=== PATIENT | female | born 1950 | race Two or more races ===

== ENCOUNTER 2017-03-31 10:11 | Emergency (ER) | payer OTHER ==
[~2017-03-31] VITALS: Ht 162.6 cm; Wt 86.2 kg
[~2017-03-31 10:11] MED LIST: ACETAMINOPHEN-1 EAC1 ORAL; ARIMIDEX1 MG ORAL; CIPROFLOXACIN500 M2 ORAL; DIURIL25 MG ORAL; GLUCOPHAGE XR500 MG ORAL; HYDROCHLOROTHIA25 MG ORAL; LISINOPRIL20 MG ORAL; NORCO 5-325 TA1 EACH PO; OMEPRAZOLE20 M3 ORAL; SIMVASTATIN20 MG ORAL; ZOFRAN ODT4 MG ORAL
[2017-03-31] MEDS ORDERED: Morphine Sulfate 2mg/ml Inj IVP ONE (10:45)
[2017-03-31 11:00] LABS: APPEARANCE,URINE CLOUDY; KETONES,URINE NEGATIVE (NEGATIVE); LEUKOCYTE ESTERASE ,URINE 2+ (NEGATIVE); MEAN CORPUSCULAR HGB CONC 31.9 G/DL (32.0-36.0); MEAN CORPUSCULAR VOLUME 97 FL (80-99); MEAN PLATELET VOLUME 8.5 FL (6.5-10.1); NITRITE,URINE NEGATIVE (NEGATIVE); PH,URINE 6 (4.5-8.0); PLATELET COUNT 93 K/UL (150-450); PROTEIN,URINE NEGATIVE (NEGATIVE); RED BLOOD COUNT 3.59 M/UL (4.20-5.40); RED CELL DISTRIBUTION WIDTH 11.7 % (11.6-14.8); UROBILINOGEN,URINE 4 MG/DL (0.0-1.0); WHITE BLOOD COUNT 8.6 K/UL (4.8-10.8)
[2017-03-31 11:12] LABS: ALBUMIN/GLOBULIN RATIO 1.2 (1.0-2.7); CALCIUM 8.9 mg/dL (8.6-10.2); CREATININE 1.8 mg/dL (0.5-0.9); GLOMERULAR FILTRATION RATE 28.3 mL/min (>60); POTASSIUM 4.6 mEQ/L (3.4-4.9); TOTAL PROTEIN 7.1 g/dL (6.6-8.7)
[2017-03-31 11:22] LABS: BACTERIA,URINE FEW /HPF; RBC,URINE 0-2 /HPF (0 - 2); SQUAMOUS EPITHELIAL CELL,UR OCCASIONAL /LPF (NONE/OCC); WBC,URINE 15-20 /HPF (0 - 2)
[2017-03-31 11:47] LABS: BAND NEUTROPHILS % (MANUAL) 1 % (0-8); BASOPHILS % (MANUAL) 0 % (0-2); EOSINOPHILS % (MANUAL) 0 % (0-3); LYMPHOCYTES % (MANUAL) 23 % (20-45); NEUTROPHILS % (MANUAL) 73 % (45-75); PLATELET ESTIMATE DECREASED; PLATELET MORPHOLOGY NORMAL; TOTAL CELLS COUNTED 100
[2017-03-31 11:48] LABS: HYPOCHROMASIA 1+
--- NOTE | 2017-03-31 12:04 | Diagnostic Imaging Report ---
Indication: Abdominal pain Technique: Spiral acquisitions obtained through the abdomen and pelvis. No oral contrast utilized, per emergency room physician request No IV contrast utilized, due to renal insufficiency. Multiplanar reconstructions were generated. Total dose length product 926 mGycm. CTDIvol(s) 18 mGy. Dose reduction achieved using automated exposure control Comparison: 02/26/2015 contrast study Findings: The appendix is not definitely identified, but there are no findings to suggest acute appendicitis. There is colonic diverticulosis. No evidence of diverticulitis. No small bowel distention. No free or loculated intraperitoneal air or fluid. The distal esophagus, stomach, duodenum are unremarkable. Lack of IV contrast limits assessment of the solid organs. The liver demonstrates surface nodularity, which is subtle but slightly more striking than on the previous study. No focal abnormality. The gallbladder, bile ducts are unremarkable. The pancreas is somewhat fatty replaced. There are prominent but not frankly enlarged peripancreatic nodes. The spleen is enlarged, measuring 15 cm long axis dimension. This is also evident previously. There is again demonstrated a 2 cm mass in the left adrenal, which appears unchanged in size. There is also diffuse bulkiness to the left adrenal. The right adrenal is unremarkable. Calcifications in the left kidney are probably arterial. The kidneys are otherwise unremarkable. No renal or ureteral calculi, hydronephrosis, or hydroureter. The bladder is unremarkable. The uterus and adnexal structures are unremarkable. No pelvic or retroperitoneal mass or adenopathy demonstrated. There are bilateral iliac artery stents There is a right breast prosthesis again demonstrated. Included lung bases demonstrate a mass at the right lung base which is spiculated, measures 12 mm diameter, not evident on the previous exam although could have been excluded from the previous imaging volume it is not evident on a 2012 exam, which definitely included the same part of the lung. The bones demonstrate degenerative spondylosis changes. Surgical clips are seen in the right posterior lateral chest wall. There is evidence of bilateral L5 spondylolysis and grade 1 L5 on S1 spondylolisthesis as well as degenerative proliferative change. This is also evident on earlier exams. Impression: No definite acute abnormality Spiculated 12 mm right lung base mass, not evident on earlier studies. Appearance is somewhat concerning for neoplasm. Consider further evaluation with dedicated chest CT Colonic diverticulosis. No evidence of diverticulitis Equivocal hepatic surface nodularity, may indicate cirrhotic changes. Correlate with clinical and laboratory findings Splenomegaly, also previously described 2 cm left adrenal mass, unchanged from prior studies. Stable left adrenal hypertrophy Other findings as noted, including degenerative spondylosis, bilateral L5 spondylolysis with associated spondylolisthesis, right breast prosthesis, bilateral iliac stents The CT scanner at [facility] is accredited by the [employer] and the scans are performed using protocols designed to limit radiation exposure to as low as reasonably achievable to attain images of sufficient resolution adequate for diagnostic evaluation.
[2017-03-31 12:20] VITALS: BP 152/70
[2017-03-31] MEDS ORDERED: DIPHENHYDRAMINE25 M1 ORAL (13:00)
[2017-03-31 13:31] VITALS: BP 168/71
[2017-03-31 13:32] VITALS: BP 152/70
--- NOTE | 2017-03-31 14:01 | Emergency Room Report ---
History of Present Illness General Chief Complaint: Back Pain-No Injury Source: Medical Record Present Illness HPI 66-year-old female presents ED complaining of abdominal pain and dysuria x2 days. Notes pain in suprapubic region, 8/10, sharp, radiating to the back. Notes burning urination. Denies fevers or chills. Denies nausea or vomiting. Denies chest pain shortness of breath. No other aggravating or relieving factors. Denies any other associated symptoms Allergies: Coded Allergies: PENICILLINS (Verified Allergy, Unknown, 02/08/11) Uncoded Allergies: TAPE (Allergy, Unknown, 03/31/17) Patient History Past Medical History: DM, HTN, GERD Past Surgical History: none Social History: Denies: smoking, alcohol use, drug use Now: No Immunizations: UTD Reviewed Nursing Documentation: PMH: Agreed, PSxH: Agreed Nursing Documentation-PMH Past Medical History: No History, Except For Hx Cardiac Problems: No - mastectomy on rt 2013 Hx Hypertension: Yes Hx Diabetes: Yes - pre Hx Cancer: Yes Hx Gastrointestinal Problems: Yes - GERD Review of Systems All Other Systems: negative except mentioned in HPI Physical Exam Vital Signs Date Time Temp Pulse Resp B/P (MAP) Pulse Ox O2 Delivery O2 Flow Rate FiO2 03/31/17 10:19 97.7 75 16 161/72 100 Room Air Sp02 EP Interpretation: reviewed, normal General Appearance: no apparent distress, alert, GCS 15, non-toxic Head: normocephalic, atraumatic Eyes: bilateral eye normal inspection, bilateral eye PERRL ENT: hearing grossly normal, normal pharynx, no angioedema, normal voice Neck: full range of motion, supple/symm/no masses Respiratory: chest non-tender, lungs clear, normal breath sounds, speaking full sentences Cardiovascular #1: regular rate, rhythm, no edema Cardiovascular #2: 2+ carotid (R), 2+ carotid (L), 2+ radial (R), 2+ radial (L) , 2+ dorsalis pedis (R), 2+ dorsalis pedis (L) Gastrointestinal: normal bowel sounds, soft, non-distended, no guarding, no rebound, tenderness - suprapubic Rectal: deferred Genitourinary: normal inspection, no CVA tenderness Musculoskeletal: back normal, gait/station normal, normal range of motion, non- tender Neurologic: alert, oriented x3, responsive, motor strength/tone normal, sensory intact, speech normal Psychiatric: judgement/insight normal, memory normal, mood/affect normal, no suicidal/homicidal ideation Reflexes: 3+ bicep (R), 3+ bicep (L), 3+ tricep (R), 3+ tricep (L), 3+ knee (R) , 3+ knee (L) Skin: normal color, no rash, warm/dry, well hydrated Lymphatic: no adenopathy Medical Decision Making Diagnostic Impression: Primary Impression: UTI (urinary tract infection) Qualified Codes: N39.0 - Urinary tract infection, site not specified Additional Impression: ARF (acute renal failure) Qualified Codes: N17.9 - Acute kidney failure, unspecified ER Course Hospital Course 66-year-old female presents to ED with dysuria and abd pain Differential diagnoses include: BPH, cystitis, pyelonephritis, kidney stone Clinical course Patient placed on 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 After initial history and physical I ordered labs, IV fluids, UA, pain medication and CT scan Labs - no leukocytosis, Hb/Hct stable, BUN/Cr elevated, UA + bacteria CT abdomen and pelvis - 12 mm right lung base mass, splenomegaly, no other acute process IV fluids given, antibiotics because of insurance patient will be transferred I feel this is a highly complex case requiring extensive working including EKG/ Rhythm strip, Xray/CT/US, Blood/urine lab work, repeat exams while in ED, and administration of strong opiates/narcotics for pain control, admission to hospital or close patient follow up. Diagnosis - UTI, ARF Patient transferred in serious condition Labs Test 03/31/17 10:41 White Blood Count 8.6 K/UL (4.8-10.8) Red Blood Count 3.59 M/UL (4.20-5.40) Hemoglobin 11.1 G/DL (12.0-16.0) Hematocrit 34.8 % (37.0-47.0) Mean Corpuscular Volume 97 FL (80-99) Mean Corpuscular Hemoglobin 31.0 PG (27.0-31.0) Mean Corpuscular Hemoglobin Concent 31.9 G/DL (32.0-36.0) Red Cell Distribution Width 11.7 % (11.6-14.8) Platelet Count 93 K/UL (150-450) Mean Platelet Volume 8.5 FL (6.5-10.1) Neutrophils (%) (Auto) % (45.0-75.0) Lymphocytes (%) (Auto) % (20.0-45.0) Monocytes (%) (Auto) % (1.0-10.0) Eosinophils (%) (Auto) % (0.0-3.0) Basophils (%) (Auto) % (0.0-2.0) Differential Total Cells Counted 100 Neutrophils % (Manual) 73 % (45-75) Lymphocytes % (Manual) 23 % (20-45) Monocytes % (Manual) 3 % (1-10) Eosinophils % (Manual) 0 % (0-3) Basophils % (Manual) 0 % (0-2) Band Neutrophils 1 % (0-8) Platelet Estimate Decreased Platelet Morphology Normal Hypochromasia 1+ Urine Color Yellow Urine Appearance Cloudy Urine pH 6 (4.5-8.0) Urine Specific [place] 1.010 (1.005-1.035) Urine Protein Negative (NEGATIVE) Urine Glucose (UA) Negative (NEGATIVE) Urine Ketones Negative (NEGATIVE) Urine Occult Blood Negative (NEGATIVE) Urine Nitrite Negative (NEGATIVE) Urine Bilirubin Negative (NEGATIVE) Urine Urobilinogen 4 MG/DL (0.0-1.0) Urine Leukocyte Esterase 2+ (NEGATIVE) Urine RBC 0-2 /HPF (0 - 2) Urine WBC 15-20 /HPF (0 - 2) Urine Squamous Epithelial Cells Occasional /LPF Urine Bacteria Few /HPF (NONE) Sodium Level 138 mEQ/L (135-145) Potassium Level 4.6 mEQ/L (3.4-4.9) Chloride Level 99 mEQ/L (98-107) Carbon Dioxide Level 25 mEQ/L (20-30) Anion Gap 14 (5-15) Blood Urea Nitrogen 50 mg/dL (7-23) Creatinine 1.8 mg/dL (0.5-0.9) Estimat Glomerular Filtration Rate 28.3 mL/min (>60) Glucose Level 197 mg/dL (74-106) Calcium Level 8.9 mg/dL (8.6-10.2) Total Bilirubin 0.5 mg/dL (0.0-1.2) Aspartate Amino Transf (AST/SGOT) 31 U/L (5-40) Alanine Aminotransferase (ALT/SGPT) 24 U/L (3-33) Alkaline Phosphatase 64 U/L (35-104) Total Protein 7.1 g/dL (6.6-8.7) Albumin 3.9 g/dL (3.5-5.2) Globulin 3.2 g/dL Albumin/Globulin Ratio 1.2 (1.0-2.7) Lipase 39 U/L (< 60) CT/MRI/US Diagnostic Results CT/MRI/US Diagnostic Results : Imaging Test Ordered: CT A/P Impression no acute process. splenomegaly. 12mm spiculated right lung base mass Last Vital Signs Date Time Temp Pulse Resp B/P (MAP) Pulse Ox O2 Delivery O2 Flow Rate FiO2 03/31/17 13:32 97.5 61 16 152/70 100 Room Air Status: improved [facility] Condition: Serious Referrals: NELDA PAYNE (PCP) JUSTIN JORDAN M.D. Mar 31, 2017 14:01
== END 2017-03-31 14:00 | disposition short-term general hospital (02) ==
LOC: EMR 10:45
DX: N39.0 Urinary tract infection, site not specified (principal); N17.9 Acute kidney failure, unspecified; K21.9 Gastro-esophageal reflux disease without esophagitis; Z90.11 Acquired absence of right breast and nipple; Z85.9 Personal history of malignant neoplasm, unspecified; Z88.0 Allergy status to penicillin; I10 Essential (primary) hypertension; E11.9 Type 2 diabetes mellitus without complications; R16.1 Splenomegaly, not elsewhere classified; R91.8 Other nonspecific abnormal finding of lung field; K57.90 Diverticulosis of intestine, part unspecified, without perforation or abscess without bleeding; M47.9 Spondylosis, unspecified; Z95.5 Presence of coronary angioplasty implant and graft
CPT/HCPCS: 36415; 74176; 80053; 81003; 83690; 85007; 85025; 87086; 87181; 96361; 96365; 96375; 99285; J1956; J2270

== ENCOUNTER 2017-04-17 08:55 | Emergency (ER) | payer OTHER ==
[~2017-04-17] VITALS: Ht 154.9 cm; Wt 86.2 kg
[~2017-04-17 08:55] MED LIST changes: +DIPHENHYDRAMINE25 M1 ORAL
[2017-04-17] MEDS ORDERED: VOLTAREN25 MG PO (09:12)
--- NOTE | 2017-04-17 09:29 | Emergency Room Report ---
History of Present Illness General Chief Complaint: Chest Pain Source: Patient Present Illness HPI Patient presents with complaints of left-sided chest pain that started last night approximately 3:00 in the morning patient reports of the pain as a heaviness there is some radiation towards her back Denies any shortness of breath denies any pleurisy Denies any vomiting or diarrhea patient was recently in the hospital Transfer to [facility] with what she reports as UTI Patient has history of diabetes and mastectomy for right-sided breast cancer Denies any recent fever she had a mild cough Allergies: Coded Allergies: PENICILLINS (Verified Allergy, Unknown, 02/08/11) Uncoded Allergies: TAPE (Allergy, Unknown, 03/31/17) Patient History Past Medical History: see triage record Pertinent Family History: none Reviewed Nursing Documentation: PMH: Agreed, PSxH: Agreed Nursing Documentation-PMH Hx Cardiac Problems: No - mastectomy on rt 2013 Hx Hypertension: Yes Hx Diabetes: Yes - pre Hx Cancer: Yes Hx Gastrointestinal Problems: Yes - GERD Review of Systems All Other Systems: negative except mentioned in HPI Physical Exam Vital Signs Date Time Temp Pulse Resp B/P (MAP) Pulse Ox O2 Delivery O2 Flow Rate FiO2 04/17/17 09:03 98.2 74 22 170/61 100 Room Air Sp02 EP Interpretation: reviewed, normal General Appearance: well appearing, no apparent distress Head: normocephalic, atraumatic Eyes: bilateral eye PERRL, bilateral eye EOMI ENT: hearing grossly normal, normal pharynx, TMs + canals normal, uvula midline Neck: full range of motion, supple, no meningismus, no bony tend Respiratory: lungs clear, normal breath sounds, no rhonchi, no respiratory distress, no retraction, no accessory muscle use Cardiovascular #1: normal peripheral pulses, regular rate, rhythm, no edema, no gallop, no JVD, no murmur Gastrointestinal: normal bowel sounds, non tender, soft, no mass, no organomegaly, non-distended, no guarding, no hernia, no pulsatile mass, no rebound Genitourinary: no CVA tenderness Musculoskeletal: normal inspection Neurologic: oriented x3, responsive, meteorology teacher III-XII nml as tested, motor strength/ tone normal, sensory intact Psychiatric: mood/affect normal Skin: normal color, no rash, warm/dry, palpation normal Lymphatic: normal inspection, no adenopathy Medical Decision Making Diagnostic Impression: Primary Impression: ACS (acute coronary syndrome) ER Course Patient is a fairly complex patient with multiple differential to consideration including but not limited to cardiac cardiopulmonary and vascular emergencies Patient's blood work and imaging is appropriate Patient received aspirin and nitroglycerin At this time has not significantly better secondary to his factors and clinical history patient is a further inpatient 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 Results EP Interpretation: yes Rate: 66 Rhythm: NSR, no PVC's, no ectopy Chest X-Ray Diagnostic Results Chest X-Ray Diagnostic Results : Chest X-Ray Ordered: Yes # of Views/Limited/Complete: 1 View Indication: Chest Pain EP Interpretation: Yes Interpretation: no consolidation, no effusion, no pneumothorax Impression: No acute disease Electronically Signed by: Kishan Cortez DO Last Vital Signs Date Time Temp Pulse Resp B/P (MAP) Pulse Ox O2 Delivery O2 Flow Rate FiO2 04/17/17 09:03 98.2 74 22 170/61 100 Room Air Status: improved Disposition: [facility] Condition: Improved Referrals: [facility],REFERRING (PCP) KISHAN CORTEZ D.O. Apr 17, 2017 09:29
[2017-04-17 09:54] LABS: MEAN CORPUSCULAR HEMOGLOBIN 31.3 PG (27.0-31.0); MEAN CORPUSCULAR HGB CONC 32.6 G/DL (32.0-36.0); MEAN CORPUSCULAR VOLUME 96 FL (80-99); MEAN PLATELET VOLUME 9.1 FL (6.5-10.1); PLATELET COUNT 96 K/UL (150-450); RED BLOOD COUNT 3.89 M/UL (4.20-5.40); RED CELL DISTRIBUTION WIDTH 11.6 % (11.6-14.8); WHITE BLOOD COUNT 6.3 K/UL (4.8-10.8)
--- NOTE | 2017-04-17 10:00 | Diagnostic Imaging Report ---
Indication: Chest pain Comparison: 02/08/11 A single view chest radiograph was obtained. Findings: Cardiomediastinal appearance is within normal limits for age. Pulmonary vascularity is appropriate. The diaphragmatic contour is smooth and costophrenic angles are sharp. No pleural effusions are identified. There are surgical clips within the right axilla. The bones are osteopenic. Impression: No acute findings
[2017-04-17 10:10] LABS: ALBUMIN/GLOBULIN RATIO 1.2 (1.0-2.7); CALCIUM 9.8 mg/dL (8.6-10.2); CREATININE 1.3 mg/dL (0.5-0.9); GLOMERULAR FILTRATION RATE 41.3 mL/min (>60); TOTAL PROTEIN 7.3 g/dL (6.6-8.7)
[2017-04-17] MEDS ORDERED: Aspirin Baby 81mg ORAL ONE (10:15)
[2017-04-17] MEDS ORDERED: Nitroglycerin 2% oint pkt TOPIC ONE (10:15)
[2017-04-17 10:16] LABS: LYMPHOCYTES % (MANUAL) 23 % (20-45); NEUTROPHILS % (MANUAL) 74 % (45-75); TOTAL CELLS COUNTED 100
[2017-04-17 10:17] LABS: BAND NEUTROPHILS % (MANUAL) 0 % (0-8); BASOPHILS % (MANUAL) 0 % (0-2); EOSINOPHILS % (MANUAL) 0 % (0-3); PLATELET ESTIMATE DECREASED; PLATELET MORPHOLOGY NORMAL
[2017-04-17 10:22] LABS: CKMB 2.1 ng/mL (< 3.8)
[2017-04-17 10:29] LABS: TROPONIN I < 0.30 ng/mL (<=0.30)
[2017-04-17] MEDS ORDERED: Mylanta II UD 30ml ORAL ONE (10:45)
[2017-04-17] MEDS ORDERED: Dicyclomine HCl 10mg/5ml oral soln ORAL ONE (10:45)
[2017-04-17 10:54] VITALS: BP 177/62
[2017-04-17 12:27] VITALS: BP 130/47
[2017-04-17 12:36] VITALS: BP 130/60
--- NOTE | 2017-04-23 23:13 | Cardiology Report ---
APPROVED REPORT EKG Measurement Heart [id number] Sinus rhythm with short SC Otherwise normal ECG
== END 2017-04-17 12:36 | disposition short-term general hospital (02) ==
LOC: EMR 09:26
DX: I24.9 Acute ischemic heart disease, unspecified (principal); I10 Essential (primary) hypertension; K21.9 Gastro-esophageal reflux disease without esophagitis; Z88.0 Allergy status to penicillin; Z91.048 Other nonmedicinal substance allergy status
CPT/HCPCS: 36415; 71010; 80053; 82550; 82553; 83690; 83880; 84484; 85007; 85025; 93005; 99283

== ENCOUNTER 2017-08-18 18:19 | Emergency (ER) | payer OTHER ==
[~2017-08-18] VITALS: Ht 154.9 cm; Wt 81.6 kg
[~2017-08-18 18:19] MED LIST changes: +VOLTAREN25 MG PO
[2017-08-18] MEDS ORDERED: ALENDRONAT70 MG/75 M PO (18:58)
[2017-08-18] MEDS ORDERED: METFORMIN HCL500 M1 ORAL (18:58)
[2017-08-18 19:15] VITALS: BP 156/73
[2017-08-18] MEDS ORDERED: Norco 5mg/325mg tab ORAL ONE (19:15)
[2017-08-18 19:34] LABS: APPEARANCE,URINE CLEAR; BILIRUBIN, URINE NEGATIVE (NEGATIVE); GLUCOSE, URINE (UA) NEGATIVE (NEGATIVE); KETONES,URINE NEGATIVE (NEGATIVE); LEUKOCYTE ESTERASE ,URINE 1+ (NEGATIVE); NITRITE,URINE NEGATIVE (NEGATIVE); PH,URINE 5 (4.5-8.0); PROTEIN,URINE NEGATIVE (NEGATIVE); UROBILINOGEN,URINE 4 MG/DL (0.0-1.0)
[2017-08-18 19:43] LABS: COLOR,URINE YELLOW
[2017-08-18 20:15] VITALS: BP 152/75
[2017-08-18] MEDS ORDERED: IBUPROFEN600 MG ORAL (20:19)
[2017-08-18] MEDS ORDERED: CIPROFLOXACIN500 M2 ORAL (20:19)
[2017-08-18 20:40] VITALS: BP 152/75
--- NOTE | 2017-08-21 07:38 | Emergency Room Report ---
History of Present Illness General Chief Complaint: Pain Source: Patient Present Illness HPI Patient presents with complaints of right lower back pain with some radiation to the upper thigh and inguinal area Triage note reports right-sided flank abdominal pain However the patient points fairly specifically to the lower back Denies any fall or trauma Denies any chest pain or short of breath Denies any vomiting Denies any fevers denies any lower abdominal pain Patient reports that she has had this pain in the past Allergies: Coded Allergies: PENICILLINS (Verified Allergy, Unknown, 02/08/11) Uncoded Allergies: TAPE (Allergy, Unknown, 03/31/17) Patient History Past Medical History: see triage record Pertinent Family History: none Reviewed Nursing Documentation: PMH: Agreed, PSxH: Agreed Nursing Documentation-PMH Hx Hypertension: Yes - Arthritis Hx Diabetes: Yes Hx Cancer: Yes - Breast Hx Gastrointestinal Problems: Yes - GERD Hx Dialysis: No - Kidney disease ("35% function") Review of Systems All Other Systems: negative except mentioned in HPI Physical Exam Vital Signs Date Time Temp Pulse Resp B/P (MAP) Pulse Ox O2 Delivery O2 Flow Rate FiO2 08/18/17 18:41 97.9 68 18 166/73 98 Room Air Sp02 EP Interpretation: reviewed, normal General Appearance: well appearing, no apparent distress Head: normocephalic, atraumatic Eyes: bilateral eye PERRL, bilateral eye EOMI ENT: normal pharynx Neck: supple, thyroid normal Respiratory: lungs clear, normal breath sounds Cardiovascular #1: regular rate, rhythm, no edema Gastrointestinal: non tender, soft Musculoskeletal: other - Tender on palpation of the right posterior superior iliac crest, otherwise able to flex at the hip bilaterally sensory intact Neurologic: alert, oriented x3, responsive, fur stretcher III-XII nml as tested Skin: no rash, warm/dry Lymphatic: no adenopathy Medical Decision Making Diagnostic Impression: Primary Impression: bladder infection Additional Impression: sciatica ER Course Evening description and location of the pain clinically patient has findings in line with sciatic pathology Urine sample does show evidence of small leukocyte Given the patient's age and presentation she was treated for this And will have initial conservative outpatient trial Labs Test 08/18/17 19:05 Urine Color Yellow Urine Appearance Clear Urine pH 5 (4.5-8.0) Urine Specific [place] 1.020 (1.005-1.035) Urine Protein Negative (NEGATIVE) Urine Glucose (UA) Negative (NEGATIVE) Urine Ketones Negative (NEGATIVE) Urine Occult Blood Negative (NEGATIVE) Urine Nitrite Negative (NEGATIVE) Urine Bilirubin Negative (NEGATIVE) Urine Urobilinogen 4 MG/DL (0.0-1.0) Urine Leukocyte Esterase 1+ (NEGATIVE) Urine RBC 0-2 /HPF (0 - 2) Urine WBC 2-4 /HPF (0 - 2) Urine Squamous Epithelial Cells Moderate /LPF (NONE/OCC) Urine Amorphous Sediment Few /LPF (NONE) Urine Bacteria Few /HPF (NONE) Last Vital Signs Date Time Temp Pulse Resp B/P (MAP) Pulse Ox O2 Delivery O2 Flow Rate FiO2 08/18/17 20:40 98.1 82 18 152/75 98 Room Air Status: improved Disposition: HOME, SELF-CARE Condition: Stable Scripts Ibuprofen* (MOTRIN*) 600 Mg Tablet 600 MG ORAL Q8H Y for For Pain, #20 TAB 0 Refills Prov: JEISON CORTEZ D.O. 08/18/17 Ciprofloxacin Hcl* (CIPROFLOXACIN HCL*) 500 Mg Tablet 500 MG ORAL Q12H, #10 TAB 0 Refills Prov: JEISON CORTEZ D.O. 08/18/17 Referrals: NELDA PAYNE (PCP) Patient Instructions: Urinary Tract Infection, [id number], Sciatica, Easy-to- Read Additional Instructions: Patient is provided with the discharge instructions notified to follow up with primary doctor in the next 2-3 days otherwise return to the er with any worsening symptoms. Please note that this report is being documented using DRAGON technology. This can lead to erroneous entry secondary to incorrect interpretation by the dictating instrument. JEISON CORTEZ D.O. Aug 21, 2017 07:38
== END 2017-08-18 19:40 | disposition home or self-care (01) ==
LOC: EMR 19:14
DX: N30.90 Cystitis, unspecified without hematuria (principal); M54.30 Sciatica, unspecified side; Z88.0 Allergy status to penicillin; Z91.048 Other nonmedicinal substance allergy status; E11.9 Type 2 diabetes mellitus without complications; I10 Essential (primary) hypertension; K21.9 Gastro-esophageal reflux disease without esophagitis; Z85.3 Personal history of malignant neoplasm of breast
CPT/HCPCS: 81003; 99283

== ENCOUNTER 2017-11-28 17:25 | Emergency (ER) | payer MEDICARE, OTHER ==
[~2017-11-28] VITALS: Ht 162.6 cm; Wt 86.2 kg
[~2017-11-28 17:25] MED LIST changes: +ALENDRONAT70 MG/75 M PO; +IBUPROFEN600 MG ORAL; +METFORMIN HCL500 M1 ORAL
[2017-11-28 17:33] VITALS: BP 162/71
[2017-11-28] MEDS ORDERED: Morphine Sulfate 4mg/ml Inj IVP ONE (18:00)
[2017-11-28 18:22] LABS: HEMATOCRIT 34.9 % (37.0-47.0); HEMOGLOBIN 11.7 G/DL (12.0-16.0); MEAN CORPUSCULAR VOLUME 93 FL (80-99); PLATELET COUNT 84 K/UL (150-450); RED BLOOD COUNT 3.76 M/UL (4.20-5.40); RED CELL DISTRIBUTION WIDTH 11.9 % (11.6-14.8); WHITE BLOOD COUNT 5.9 K/UL (4.8-10.8)
[2017-11-28 18:32] LABS: APPEARANCE,URINE CLEAR; BILIRUBIN, URINE NEGATIVE (NEGATIVE); GLUCOSE, URINE (UA) NEGATIVE (NEGATIVE); KETONES,URINE NEGATIVE (NEGATIVE); LEUKOCYTE ESTERASE ,URINE 1+ (NEGATIVE); NITRITE,URINE NEGATIVE (NEGATIVE); PH,URINE 7 (4.5-8.0); PROTEIN,URINE NEGATIVE (NEGATIVE); UROBILINOGEN,URINE 1 MG/DL (0.0-1.0)
[2017-11-28 18:36] LABS: COLOR,URINE YELLOW
[2017-11-28 18:36] LABS: ANION GAP 8 mmol/L (5-15); BLOOD UREA NITROGEN 34 mg/dL (7-18); CARBON DIOXIDE 26 MMOL/L (21-32); CHLORIDE 106 MMOL/L (98-107); CREATININE 1.8 MG/DL (0.55-1.30); POTASSIUM 4.1 MMOL/L (3.5-5.1); SODIUM 140 MMOL/L (136-145)
[2017-11-28 18:40] LABS: ALANINE AMINOTRANSFERASE 32 U/L (12-78); ALBUMIN 3.4 G/DL (3.4-5.0); ALBUMIN/GLOBULIN RATIO 0.8 (1.0-2.7); ALKALINE PHOSPHATASE 76 U/L (46-116); ASPARTATE AMINO TRANSFERASE 31 U/L (15-37); BILIRUBIN,TOTAL 0.4 MG/DL (0.2-1.0)
--- NOTE | 2017-11-28 18:54 | Diagnostic Imaging Report ---
EXAM: XR Chest, 1 View CLINICAL HISTORY: ABD PAIN TECHNIQUE: Frontal view of the chest. COMPARISON: No relevant prior studies available. FINDINGS: Lungs: Reduced lung volumes. Accentuation of markings. Pleural space: Unremarkable. No pneumothorax. Heart: Cardiomegaly. Mediastinum: Unremarkable. Bones/joints: No acute fracture. Soft tissues: Surgical clips related to the right breast and right axillary region. IMPRESSION: Accentuation of pulmonary markings.
[2017-11-28 19:30] VITALS: BP 137/65
[2017-11-28] MEDS ORDERED: Levofloxacin 500mg tab ORAL ONE (20:30)
[2017-11-28] MEDS ORDERED: CIPROFLOXACIN500 M2 ORAL (20:32)
[2017-11-28] MEDS ORDERED: OMEPRAZOLE20 M3 ORAL (20:33)
[2017-11-28 21:20] VITALS: BP 134/77
--- NOTE | 2017-11-29 14:44 | Emergency Room Report ---
History of Present Illness General Chief Complaint: Pain Source: Patient Present Illness HPI Patient is a 67-year-old female who presented after increased abdominal pain. The patient prior history of breast cancer. Patient had been noted to have increased pain to the right upper abdomen. Patient prior history of renal stones. She denies any fever. She reported having some increased dysuria as well as urinary frequency. She had not been vomiting. She denies any black or bloody stools. The patient had been followed by oncology. Allergies: Coded Allergies: PENICILLINS (Verified Allergy, Unknown, 02/08/11) Uncoded Allergies: TAPE (Allergy, Unknown, 03/31/17) Patient History Past Medical History: see triage record Reviewed Nursing Documentation: PMH: Agreed; PSxH: Agreed Nursing Documentation-PMH Hx Hypertension: Yes - Arthritis Hx Diabetes: Yes Hx Cancer: Yes - Breast Hx Gastrointestinal Problems: Yes - GERD Hx Dialysis: No - Kidney disease ("35% function") Review of Systems All Other Systems: negative except mentioned in HPI Physical Exam Vital Signs Date Time Temp Pulse Resp B/P (MAP) Pulse Ox O2 Delivery O2 Flow Rate FiO2 11/28/17 17:31 98.1 77 20 162/71 96 Room Air 98.1 Sp02 EP Interpretation: reviewed, normal General Appearance: normal inspection, well appearing, no apparent distress, alert, GCS 15 Head: atraumatic ENT: normal ENT inspection, hearing grossly normal, normal voice Neck: normal inspection, full range of motion, supple, no bony tend Respiratory: normal inspection, lungs clear, normal breath sounds, no respiratory distress, no retraction, no wheezing Cardiovascular #1: regular rate, rhythm, no edema Gastrointestinal: normal inspection, normal bowel sounds, non tender, soft, no guarding, no hernia Genitourinary: no CVA tenderness Musculoskeletal: normal inspection, back normal, normal range of motion Neurologic: normal inspection, alert, oriented x3, responsive, laborer stores III-XII nml as tested, speech normal Psychiatric: normal inspection, judgement/insight normal, mood/affect normal Skin: normal inspection, normal color, no rash Medical Decision Making Diagnostic Impression: Primary Impression: Abdominal pain ER Course Patient presented for abdominal pain. Differential diagnoses included ischemic bowel, appendicitis, perforated viscus, abdominal aortic aneurysm, inferior myocardial infarction, viral gastroenteritis. Because of complexity of patient' s case laboratory testing and imaging studies were ordered. Laboratory studies were notable for some evidence of urinary infection. Patient was iven IV medicationimprovement in her symptoms.the patient was advised follow-up with her oncologist. The patient is advised to follow up with primary care doctor in 1-2 days. Patient is advised to return if any worsening condition or if any changes in status that are concerning. This report is dictated with [employer] fishing hand software which may occasionally lead to discrepancies related to use of this software. Labs Test 11/28/17 17:40 11/28/17 18:00 11/28/17 18:10 Urine Color Yellow Urine Appearance Clear Urine pH 7 (4.5-8.0) Urine Specific [place] 1.010 (1.005-1.035) Urine Protein Negative (NEGATIVE) Urine Glucose (UA) Negative (NEGATIVE) Urine Ketones Negative (NEGATIVE) Urine Occult Blood Negative (NEGATIVE) Urine Nitrite Negative (NEGATIVE) Urine Bilirubin Negative (NEGATIVE) Urine Urobilinogen 1 MG/DL (0.0-1.0) Urine Leukocyte Esterase 1+ (NEGATIVE) Urine RBC 0-2 /HPF (0 - 2) Urine WBC 2-4 /HPF (0 - 2) Urine Squamous Epithelial Cells Few /LPF (NONE/OCC) Urine Uric Acid Crystals Few /LPF (NONE) Urine Amorphous Sediment Few /LPF (NONE) Urine Bacteria Few /HPF (NONE) White Blood Count 5.9 K/UL (4.8-10.8) Red Blood Count 3.76 M/UL (4.20-5.40) Hemoglobin 11.7 G/DL (12.0-16.0) Hematocrit 34.9 % (37.0-47.0) Mean Corpuscular Volume 93 FL (80-99) Mean Corpuscular Hemoglobin 31.2 PG (27.0-31.0) Mean Corpuscular Hemoglobin Concent 33.6 G/DL (32.0-36.0) Red Cell Distribution Width 11.9 % (11.6-14.8) Platelet Count 84 K/UL (150-450) Mean Platelet Volume 8.8 FL (6.5-10.1) Neutrophils (%) (Auto) % (45.0-75.0) Lymphocytes (%) (Auto) % (20.0-45.0) Monocytes (%) (Auto) % (1.0-10.0) Eosinophils (%) (Auto) % (0.0-3.0) Basophils (%) (Auto) % (0.0-2.0) Differential Total Cells Counted 100 Neutrophils % (Manual) 66 % (45-75) Lymphocytes % (Manual) 27 % (20-45) Monocytes % (Manual) 6 % (1-10) Eosinophils % (Manual) 1 % (0-3) Basophils % (Manual) 0 % (0-2) Band Neutrophils 0 % (0-8) Platelet Estimate Decreased Platelet Morphology Normal Hypochromasia 1+ Sodium Level 140 MMOL/L (136-145) Potassium Level 4.1 MMOL/L (3.5-5.1) Chloride Level 106 MMOL/L (98-107) Carbon Dioxide Level 26 MMOL/L (21-32) Anion Gap 8 mmol/L (5-15) Blood Urea Nitrogen 34 mg/dL (7-18) Creatinine 1.8 MG/DL (0.55-1.30) Estimat Glomerular Filtration Rate 28.3 mL/min (>60) Glucose Level 110 MG/DL (74-106) Calcium Level 9.0 MG/DL (8.5-10.1) Total Bilirubin 0.4 MG/DL (0.2-1.0) Aspartate Amino Transf (AST/SGOT) 31 U/L (15-37) Alanine Aminotransferase (ALT/SGPT) 32 U/L (12-78) Alkaline Phosphatase 76 U/L (46-116) Total Protein 7.7 G/DL (6.4-8.2) Albumin 3.4 G/DL (3.4-5.0) Globulin 4.3 g/dL Albumin/Globulin Ratio 0.8 (1.0-2.7) Lipase 202 U/L (73-393) Prothrombin Time 10.5 SEC (9.30-11.50) Prothromb Time International Ratio 1.0 (0.9-1.1) Activated Partial Thromboplast Time 28 SEC (23-33) Last Vital Signs Date Time Temp Pulse Resp B/P (MAP) Pulse Ox O2 Delivery O2 Flow Rate FiO2 11/28/17 21:20 98.1 68 17 134/77 98 Room Air 98.1 Status: improved Disposition: HOME, SELF-CARE Condition: Stable Scripts Omeprazole (OMEPRAZOLE) 20 Mg Tablet.dr 20 MG ORAL DAILY, #30 TAB Prov: Leonid Riggs MD 11/28/17 Ciprofloxacin Hcl* (CIPROFLOXACIN HCL*) 500 Mg Tablet 500 MG ORAL Q12H, #14 TAB Prov: Leonid Riggs MD 11/28/17 Patient Instructions: Urinary Tract Infection Leonid Riggs MD November 29, 2017 14:44
--- NOTE | 2017-11-30 13:53 | Cardiology Report ---
APPROVED REPORT EKG Measurement Heart [id number] Normal sinus rhythm Normal ECG
== END 2017-11-28 21:20 | disposition home or self-care (01) ==
LOC: EMR 19:15
DX: R10.9 Unspecified abdominal pain (principal); Z88.0 Allergy status to penicillin; E11.9 Type 2 diabetes mellitus without complications; K21.9 Gastro-esophageal reflux disease without esophagitis
CPT/HCPCS: 36415; 71045; 80053; 81003; 83690; 85007; 85025; 85610; 85730; 93005; 96374; 96375; 99284; J2270; J2405

== ENCOUNTER 2018-04-28 13:46 | Outpatient (CLI) | payer MEDICARE, OTHER ==
--- NOTE | 2018-04-28 15:30 | Diagnostic Imaging Report ---
Indication: Right flank pain Technique: Grayscale and duplex images of the kidneys, retroperitoneum, and bladder were obtained. Comparison: Abdomen pelvis CT dated 03/31/2017, abdominal ultrasound dated 11/14/2011 Findings: Right kidney measures 10.2 cm in length. Left kidney measures 9.4 cm in length. Both kidneys demonstrate normal echogenicity. No hydronephrosis. Echogenic twinkling foci are noted in the central left renal parenchyma. 5 mm echogenic focus is seen within the left renal lower pole. There are renal cysts bilaterally.. Normal inferior vena cava. Bladder is normal. Impression: Negative for hydronephrosis Bilateral renal echogenic foci. It is possible these are artifactual, as no calculi are evident on March 2017 CT scan. However, these could represent calculi that have developed in the interim Bilateral renal cysts incidentally noted.
== END 2018-04-28 15:46 | disposition home or self-care (01) ==
LOC: ULS 13:46
DX: R10.9 Unspecified abdominal pain (principal); N28.1 Cyst of kidney, acquired; N28.89 Other specified disorders of kidney and ureter
CPT/HCPCS: 76770

== ENCOUNTER 2019-04-24 10:33 | Emergency (ER) | payer MEDICARE, OTHER ==
[~2019-04-24] VITALS: Ht 157.5 cm; Wt 79.8 kg
[2019-04-24] MEDS ORDERED: NORCO 10-325 T1 EACH ORAL (10:49)
[2019-04-24] MEDS ORDERED: TRADJENTA5 MG PO (10:49)
[2019-04-24] MEDS ORDERED: VENTOLIN HFA18 GM INH (10:49)
[2019-04-24] MEDS ORDERED: AMLODIPINE BESYL5 MG ORAL (10:49)
[2019-04-24] MEDS ORDERED: ZEMPLAR1 MC1 ORAL (10:49)
[2019-04-24 10:50] VITALS: BP 140/51
--- NOTE | 2019-04-24 10:50 | NUR ---
ED Nurse Note: PT AAOX4, VSS, NO ACUTE DISTRESS. pt. came from home with flulike symptoms for 2 weeks and SOB for 3 days. MD AT BEDSIDE.
--- NOTE | 2019-04-24 10:58 | Emergency Room Report ---
History of Present Illness General Chief Complaint: Dyspnea/Respdistress Source: Patient Present Illness HPI Disclaimer: Please note that this report is being documented using DRAGON technology. This can lead to erroneous entry secondary to incorrect interpretation by the dictating instrument. HPI: Is a 68-year-old female with a history of hypertension, hyperlipidemia, diabetes and asthma presenting for evaluation of cough shortness of breath and fatigue. Patient states symptoms present approximately 2 weeks. She received an influenza vaccine approximately 2 weeks ago and ever since she states she has felt "sick." She notes a productive cough, subjective fevers and chills, sore throat, nausea without vomiting, no diarrhea. She denies myalgias but feels worn down and fatigue. No known sick contacts. Otherwise in her usual state of health. PMH: Hypertension, hyperlipidemia, diabetes, asthma PSH: None reported Allergies: Penicillin Social Hx: Denies drug or alcohol abuse Allergies: Coded Allergies: PENICILLINS (Verified Allergy, Unknown, 02/08/11) Uncoded Allergies: TAPE (Allergy, Unknown, 03/31/17) Nursing Documentation-PMH Past Medical History: No History, Except For Hx Hypertension: Yes - Arthritis Hx Diabetes: Yes Hx Cancer: Yes - Breast Hx Gastrointestinal Problems: Yes - GERD Hx Dialysis: No - Kidney disease ("35% function") Review of Systems All Other Systems: limited Physical Exam Vital Signs Date Time Temp Pulse Resp B/P (MAP) Pulse Ox O2 Delivery O2 Flow Rate FiO2 04/24/19 10:39 97.9 70 19 137/50 (79) 96 Room Air General: Awake and alert, no acute distress HEENT: NC/AT. EOMI. CV: Regular rate and rhythm, no murmurs, S1-S2 normal Resp: Normal work of breathing. Intermittent cough during exam. There are expiratory wheezes in the upper lung campbell but no crackles appreciated. Skin: Intact. No abrasions, laceration or rash over the exposed skin MSK: Normal tone and bulk. Moving all extremities. No obvious deformity. Neuro: Awake and alert. Mentating appropriately Medical Decision Making Diagnostic Impression: Primary Impression: Pneumonia ER Course 68-year-old female presents for evaluation of 2 weeks cold-like symptoms and a productive cough after receiving the flu vaccine. Overall, she is well- appearing, afebrile with stable vital signs. Will obtain a two-view chest x- ray to rule out pneumonia and give the patient a breathing treatment for the mild wheezes but she is in no respiratory distress and is overall well- appearing. There is no clear pneumonia she was discharged to follow-up with her PMD. Chest X-Ray Diagnostic Results Chest X-Ray Diagnostic Results : # of Views/Limited/Complete: 2 View Indication: Shortness of Breath Interpretation: other - Bilateral effusions and consolidations Impression: Other - Concern for bilateral pneumonia Electronically Signed by: Electronically signed by Dr. Ken Buchanan Reevaluation Time: 13:02 Last Vital Signs Date Time Temp Pulse Resp B/P (MAP) Pulse Ox O2 Delivery O2 Flow Rate FiO2 04/24/19 10:39 97.9 70 19 137/50 (79) 96 Room Air Reevaluation Impression Chest x-ray shows a right and possibly left pneumonia. Patient is well- appearing with stable vital signs and no acute distress. Will treat with azithromycin and follow-up closely with her PMD. We discussed reasons to return to the emergency department. She understands and agrees with this treatment plan. Disposition: HOME, SELF-CARE Condition: Stable Scripts Azithromycin* (ZITHROMAX*) 250 Mg Tablet 250 MG ORAL DAILY for 5 Days, #6 TAB 0 Refills Take two tables once daily for 1 day, then one tablet once daily for 4 days. Prov: Ken Buchanan MD 04/24/19 Ken Buchanan MD Apr 24, 2019 10:57
[2019-04-24] MEDS ORDERED: Lidocaine 1% Plain 30 ml INJ ONE (11:00)
[2019-04-24] MEDS ORDERED: Albuterol/Ipratropium 3ml neb HHN ONE (11:00)
--- NOTE | 2019-04-24 12:29 | Diagnostic Imaging Report ---
EXAM: XR Chest, 2 Views CLINICAL HISTORY: SOB TECHNIQUE: Frontal and lateral views of the chest. COMPARISON: None available FINDINGS: Hardware: None. Lungs pleura: Right pleural effusion with associated atelectasis versus pneumonia. Possible small left pleural effusion. Pulmonary vasculature congestion and pulmonary edema. Heart mediastinum: Enlargement of the cardiac silhouette. Soft tissues: Right axillary lymph node dissection and right lumpectomy changes. Bones: No acute fracture. Degenerative changes of the visualized right acromioclavicular joint and spine. Upper abdomen: Normal. IMPRESSION: Right pleural effusion with associated atelectasis versus pneumonia. Possible small left pleural effusion. Pulmonary vasculature congestion and pulmonary edema.
[2019-04-24] MEDS ORDERED: ZITHROMAX250 MG ORAL (12:41)
[2019-04-24 13:13] VITALS: BP 138/60
--- NOTE | 2019-04-24 13:13 | NUR ---
ER DISCHARGE NOTE: Patient is cleared to be discharged per ERMD, pt is aox4, on room air, with stable vital signs. pt was given dc and prescription instructions, pt was able to verbalize understanding, pt id band and iv site removed without complications. pt is able to ambulate with steady gait. pt took all belongings.
== END 2019-04-24 13:13 | disposition home or self-care (01) ==
LOC: EMR 12:22
DX: J18.9 Pneumonia, unspecified organism (principal); M19.90 Unspecified osteoarthritis, unspecified site; E11.9 Type 2 diabetes mellitus without complications; J45.909 Unspecified asthma, uncomplicated; E78.5 Hyperlipidemia, unspecified; I10 Essential (primary) hypertension; K21.9 Gastro-esophageal reflux disease without esophagitis; Z85.3 Personal history of malignant neoplasm of breast; Z88.0 Allergy status to penicillin; Z91.048 Other nonmedicinal substance allergy status
CPT/HCPCS: 71046; 94640; 94664; 96374; 99284; J7620

== ENCOUNTER 2019-04-27 22:48 | Inpatient (IN) | payer MEDICARE, OTHER ==
[~2019-04-27] VITALS: Ht 157.5 cm; Wt 80.3 kg
[~2019-04-27 22:48] MED LIST changes: +AMLODIPINE BESYL5 MG ORAL; +NORCO 10-325 T1 EACH ORAL; +TRADJENTA5 MG PO; +VENTOLIN HFA18 GM INH; +ZEMPLAR1 MC1 ORAL; +ZITHROMAX250 MG ORAL
[2019-04-27 23:18] VITALS: BP 138/78
--- NOTE | 2019-04-27 23:18 | NUR ---
ED Nurse Note: pt walked in to ED Accompanied by her son. pt c/o SOB and cough. pt states she was here at [facility] [place] with PNA. pt states she is not getting any better and cough is getting worse. pt sp02 at room air is 94% at this time. VSS. pt is alert x4.
--- NOTE | 2019-04-27 23:18 | NUR ---
Note isabell in EDM - 04/27/19 at 2339 by CRYSTAL ED Nurse Note: pt walked in to ED C/O " a thorn might stuck my left eye ball". pt stated this happened around 10:00am today. pt's left sclera is red. pt denies any pain or changes in vission. left eye 20/25 right eye 20/20. pt is alert x4.
[2019-04-27] MEDS ORDERED: Omnipaque-300 100ml vial INJ ONE (23:30)
--- NOTE | 2019-04-27 23:35 | NUR ---
ED Nurse Note: urine and blood sample sent down to lab
--- NOTE | 2019-04-27 23:51 | Emergency Room Report ---
History of Present Illness General Chief Complaint: Dyspnea/Respdistress Source: Patient Present Illness [facility] Disclaimer: Please note that this report is being documented using DRAGON technology. This can lead to erroneous entry secondary to incorrect interpretation by the dictating instrument. HPI: Is a 68-year-old female with a history of hypertension, hyperlipidemia, diabetes and asthma presenting for evaluation of cough shortness of breath and fatigue. She was seen in the emergency department 3 days ago by me complaining of persistent cough, feeling sick for several days after receiving a flu vaccine. She was diagnosed with a pneumonia and discharged on azithromycin which she is been compliant with. She notes worsening cough, chills but denies fever. Notes exertional dyspnea and lightheadedness when ambulating. Came in for worsening fatigue. PMH: Hypertension, hyperlipidemia, diabetes, asthma PSH: None reported Allergies: Penicillin Social Hx: Denies drug or alcohol abuse Allergies: Coded Allergies: PENICILLINS (Verified Allergy, Unknown, 02/08/11) Uncoded Allergies: TAPE (Allergy, Unknown, 03/31/17) Nursing Documentation-PMH Hx Hypertension: Yes - Arthritis Hx Diabetes: Yes Hx Cancer: Yes - Breast Hx Gastrointestinal Problems: Yes - GERD Hx Dialysis: No - Kidney disease ("35% function") Review of Systems All Other Systems: negative except mentioned in HPI Physical Exam Vital Signs Date Time Temp Pulse Resp B/P (MAP) Pulse Ox O2 Delivery O2 Flow Rate FiO2 04/27/19 23:08 97.7 75 18 122/46 (71) 93 Room Air General: Awake and alert, no acute distress HEENT: NC/AT. EOMI. Cardiovascular: RRR. S1 and S2 normal. No murmur appreciated Resp: Slight increase in respiratory rate. Normal work of breathing. Bilateral crackles. No wheezing. Intermittent cough during exam Abdomen: Abdomen is soft, nondistended. Nontender Skin: Intact. No abrasions, laceration or rash over the exposed skin MSK: Normal tone and bulk. Moving all extremities. No obvious deformity. Neuro: Awake and alert. Mentating appropriately. Procedures Critical Care Time Critical Care Time Total critical care time: Approximately 31 minutes Due to a high probability of clinically significant, life threatening deterioration, the patient required the highest level of preparedness to intervene emergently and I personally spent this critical care time directly and personally managing the patient. This critical care time included obtaining a history, examining the patient, pulse oximetry, ordering and reviewing studies , ordering treatments, evaluating response to treatment and updating management plan as needed, frequent reassessment and discussion with other providers as well as arranging for ultimate disposition. This critical to care time was performed to assess and manage the high probability of life-threatening deterioration that could result in multiorgan failure. This critical care time is separate from the separately billable procedures and treating other patients. Ultrasound Ultrasound : Consent: Emergent Patient Tolerated: Well Progress Cardiac ultrasound performed at bedside. There is pericardial effusion without significant right ventricle collapse. Medical Decision Making Diagnostic Impression: Primary Impression: Pericardial effusion Additional Impressions: Hypoxia Upper respiratory infection Pulmonary nodule ER Course 68-year-old female presenting for evaluation for exertional dyspnea and worsening cough with chills since being diagnosed with pneumonia 3 days ago. She is been compliant with her medication but notes worsening symptoms overall. May be avail and antibiotics. Will obtain a CT scan of the chest to further evaluate for pneumonia as the previous x-ray was questionable. We will recheck labs and keep on monitor. Laboratory Tests Test 04/27/19 23:30 04/28/19 00:05 White Blood Count 6.8 K/UL (4.8-10.8) Red Blood Count 3.38 M/UL (4.20-5.40) L Hemoglobin 10.4 G/DL (12.0-16.0) L Hematocrit 31.5 % (37.0-47.0) L Mean Corpuscular Volume 93 FL (80-99) Mean Corpuscular Hemoglobin 30.8 PG (27.0-31.0) Mean Corpuscular Hemoglobin Concent 33.0 G/DL (32.0-36.0) Red Cell Distribution Width 11.4 % (11.6-14.8) L Platelet Count 104 K/UL (150-450) L Mean Platelet Volume 7.6 FL (6.5-10.1) Neutrophils (%) (Auto) 68.1 % (45.0-75.0) Lymphocytes (%) (Auto) 22.2 % (20.0-45.0) Monocytes (%) (Auto) 6.7 % (1.0-10.0) Eosinophils (%) (Auto) 2.5 % (0.0-3.0) Basophils (%) (Auto) 0.5 % (0.0-2.0) Sodium Level 142 MMOL/L (136-145) Potassium Level 4.6 MMOL/L (3.5-5.1) Chloride Level 108 MMOL/L (98-107) H Carbon Dioxide Level 24 MMOL/L (21-32) Anion Gap 10 mmol/L (5-15) Blood Urea Nitrogen 45 mg/dL (7-18) H Creatinine 2.8 MG/DL (0.55-1.30) H Estimate Glomerular Filtration Rate 16.9 mL/min (>60) Glucose Level 121 MG/DL (74-106) H Lactic Acid Level 0.70 mmol/L (0.4-2.0) Calcium Level 9.3 MG/DL (8.5-10.1) Total Bilirubin 0.4 MG/DL (0.2-1.0) Aspartate Amino Transferase (AST) 27 U/L (15-37) Alanine Aminotransferase (ALT) 22 U/L (12-78) Alkaline Phosphatase 79 U/L (46-116) Troponin I 0.000 ng/mL (0.000-0.056) Pro-B-Type Natriuretic Peptide 1242 pg/mL (0-125) H Total Protein 7.7 G/DL (6.4-8.2) Albumin 3.5 G/DL (3.4-5.0) Globulin 4.2 g/dL Albumin/Globulin Ratio 0.8 (1.0-2.7) L Arterial Blood pH 7.371 (7.350-7.450) Arterial Blood Partial Pressure CO2 35.2 mmHg (35.0-45.0) Arterial Blood Partial Pressure O2 75.1 mmHg (75.0-100.0) Arterial Blood HCO3 19.9 mmol/L (22.0-26.0) L Arterial Blood Oxygen Saturation 93.7 % (95-100) L Arterial Blood Base Excess -4.7 (-2-2) L Richard Test Positive EKG Diagnostic Results EKG Time: 00:20 Rate: normal Rhythm: NSR ST Segments: no acute changes Other Impression Sinus rhythm, normal axis, normal intervals, no ST segment changes Rhythm Strip Diag. Results Rhythm Strip Time: 00:20 EP Interpretation: yes Rate: 80s Rhythm: NSR, no PVC's, no ectopy CT/MRI/US Diagnostic Results CT/MRI/US Diagnostic Results : Impression Preliminary Findings Only See Final Report For Complete Findings CT CHEST Without Contrast: Large pericardial effusion measuring 2.3 cm in thickness. Trace bilateral pleural effusions. No consolidation or overt edema. Pulmonary nodule in the right lower lobe measuring 1.2 cm. For low-risk or high- risk patients consider a follow-up chest CT at 3 months. If unchanged consider an additional follow-up CT at 18-24 months. Alternatively (or additionally) PET/ CT or tissue sampling could be performed. Severe coronary artery calcifications. Aortic valvular calcifications. Incompletely characterized left adrenal nodules measuring 2.7 and 1.7 cm. Radiologist: Diego Champion MD Study ready at 01:16 and initial results transmitted at 01:54 Reevaluation Time: 02:25 Last Vital Signs Date Time Temp Pulse Resp B/P (MAP) Pulse Ox O2 Delivery O2 Flow Rate FiO2 04/27/19 23:08 97.7 75 18 122/46 (71) 93 Room Air Reevaluation Impression Patient's labs show normal white count, slight anemia with a hemoglobin of 10.4 that is normocytic. Blood gas shows a normal pH, PCO2 and PO2. Creatinine shows an acute kidney injury with a creatinine of 2.8 however lactate and troponin are within normal limits. BNP elevated at 1200. I was called by the radiologist from stat read tell me that the patient had a pericardial effusion that appeared to be simple fluid and no hemorrhagic component. Bedside echo was performed which shows the pericardial effusion but no evidence of significant right ventricular collapse. Questionable pneumonia as there was a slight effusion and a possible lung nodule as well though this may be a viral illness. The patient was treated with antibiotics prior to CT results. The patient was ambulated with an oximeter and became hypoxic to 89% on room air. She will require admission for evaluation of pericardial effusion, RYAN and upper respiratory illness. Will admit to the stepdown unit. Disposition: ADMITTED INPATIENT Condition: Serious Referrals: NOT CHOSEN MARICHUY/,REFERRING (PCP) Ken Buchanan MD Apr 27, 2019 23:51
[2019-04-28 00:03] LABS: BASOPHILS % (AUTO) 0.5 % (0.0-2.0); EOSINOPHILS % (AUTO) 2.5 % (0.0-3.0); HEMATOCRIT 31.5 % (37.0-47.0); HEMOGLOBIN 10.4 G/DL (12.0-16.0); LYMPHOCYTES % (AUTO) 22.2 % (20.0-45.0); MEAN CORPUSCULAR VOLUME 93 FL (80-99); MONOCYTES % (AUTO) 6.7 % (1.0-10.0); NEUTROPHILS % (AUTO) 68.1 % (45.0-75.0); PLATELET COUNT 104 K/UL (150-450); RED BLOOD COUNT 3.38 M/UL (4.20-5.40); RED CELL DISTRIBUTION WIDTH 11.4 % (11.6-14.8); WHITE BLOOD COUNT 6.8 K/UL (4.8-10.8)
[2019-04-28] MEDS ORDERED: NORVASC10 MG ORAL (00:06)
[2019-04-28 00:20] LABS: ANION GAP 10 mmol/L (5-15); BLOOD UREA NITROGEN 45 mg/dL (7-18); CALCIUM 9.3 MG/DL (8.5-10.1); CARBON DIOXIDE 24 MMOL/L (21-32); CHLORIDE 108 MMOL/L (98-107); CREATININE 2.8 MG/DL (0.55-1.30); POTASSIUM 4.6 MMOL/L (3.5-5.1); SODIUM 142 MMOL/L (136-145)
--- NOTE | 2019-04-28 00:27 | NUR ---
ED Nurse Note: pt left for CT
[2019-04-28 00:31] LABS: ALANINE AMINOTRANSFERASE 22 U/L (12-78); ALBUMIN 3.5 G/DL (3.4-5.0); ALBUMIN/GLOBULIN RATIO 0.8 (1.0-2.7); ALKALINE PHOSPHATASE 79 U/L (46-116); ASPARTATE AMINO TRANSFERASE 27 U/L (15-37); BILIRUBIN,TOTAL 0.4 MG/DL (0.2-1.0)
--- NOTE | 2019-04-28 00:50 | NUR ---
ED Nurse Note: back from CT
--- NOTE | 2019-04-28 01:55 | Diagnostic Imaging Report ---
Clinical Indication: Shortness of breath and cough for one week Technique: Spiral acquisitions obtained through the chest. No IV contrast utilized, reason not stated. Multiplanar reconstructions generated. Total dose length product 715 mGycm. CTDIvol(s) 18 mGy. Dose reduction achieved using automated exposure control Comparison: none Findings: There is some image degradation due to motion artifact. There are bilateral right greater than left pleural effusions, small to moderate on the right, small on the left. There is a spiculated mass within the right lower lobe, best seen on images 44 through 48 of series 3. This measures 12 mm diameter. There is questionably diffuse groundglass opacity, although this may be related to the motion artifact. There is a calcified granuloma in the posterior left lower lobe. There is a large pericardial effusion which measures up to 2.5 cm in thickness. The heart itself is not enlarged. No there are prominent mediastinal lymph nodes, largest subcarinal node measuring 2.1 cm long axis dimension. Largest right paratracheal node measures 1.7 cm long axis and 1 cm short axis dimension. Unremarkable esophagus. There is a right breast implant. There are right axillary surgical clips. No axillary or chest wall mass or adenopathy demonstrated. The included upper abdominal anatomy demonstrates splenomegaly. There is suggestion of slight hepatic surface nodularity. There is a 2.1 cm left adrenal mass. There is fatty replacement of the pancreas When compared to a prior abdomen pelvis CT 03/31/2017 which included the lung bases, the pleural effusions and pericardial effusions are new. The right lung lesion is unchanged. The and abdominal findings are unchanged. Impression: Bilateral right greater than left pleural effusions Questionable diffuse pulmonary groundglass opacity, could be due to motion artifact or could be on the basis of pulmonary edema 12 mm spiculated right lower lobe lung nodule. This is also evident on prior study of 03/31/2017 and appears unchanged in size. Lack of interim change suggests is most likely postinflammatory, but continued surveillance is recommended Large pericardial effusion. This is new since prior [address] Evidence of old granulomatous disease Prominent but not frankly enlarged mediastinal lymph nodes, nonspecific Evidence of prior right mastectomy, no dissection, and implant placement Hepatic surface nodularity, suggestive of cirrhosis, also previously described Splenomegaly, also previously described 2.1 cm left adrenal mass, unchanged since previous abdomen pelvis study This essentially agrees with the preliminary interpretation provided overnight by [facility] teleradiology service, with minor variation. The CT scanner at [facility] is accredited by the [employer] and the scans are performed using protocols designed to limit radiation exposure to as low as reasonably achievable to attain images of sufficient resolution adequate for diagnostic evaluation.
[2019-04-28] MEDS ORDERED: Azithromycin 500 MG in NS 275 ML IV SCH (02:00)
[2019-04-28] MEDS ORDERED: cefTRIAXone 1 GM in NS 55 ML IV SCH (02:00)
--- NOTE | 2019-04-28 03:37 | NUR ---
NURSE NOTES: Patient arrived to floor via gurney with RN. Placed in room 241-2. monitoring coordinator placed, vital signs taken, linens are changed and patient able to ambulate to the bathroom for 1 void. Belongings accounts for at bedside, no wounds notes. Contacted Dr. Kwong for initial orders.
--- NOTE | 2019-04-28 03:38 | NUR ---
ED Nurse Note: pt brought up to SDu room 241 accompanied by 2 RN with monitor box via [employer] in stable condition. iv site to left AC 20g intact. inventory signed. pt is alert x4. Report given to SAGE Odell.
[2019-04-28 03:45] VITALS: BP 135/66
--- NOTE | 2019-04-28 04:59 | NUR ---
NURSE NOTES: Left urgent message for Dr. Kwong for admission orders. Awaiting call back.
--- NOTE | 2019-04-28 05:23 | NUR ---
NURSE NOTES: Hse Manager Veronique Saxena aware Dr. Kwong is not responding with admission orders. Advised to wait, patient is stable.
--- NOTE | 2019-04-28 06:22 | NUR ---
NURSE NOTES: Per Dr. Kwong to continue home meds, meds are taken from patient in the ED and sent to pharmacy with receipt in chart. Med recon done in ED by RN.
[2019-04-28] MEDS ORDERED: Ciprofloxacin 500mg tab ORAL SCH ×3 (06:30)
[2019-04-28] MEDS ORDERED: HYDROcodone/Acetamin 10/325 tab ORAL PRN (06:30)
[2019-04-28] MEDS ORDERED: Tylenol #3 tab (300mg/30mg) ORAL PRN (06:30)
[2019-04-28] MEDS ORDERED: HYDROcodone/Acetamin 5/325 tab ORAL PRN (06:30)
--- NOTE | 2019-04-28 07:11 | NUR ---
HAND-OFF: Report given to SAGE Aguirre.
--- NOTE | 2019-04-28 07:12 | NUR ---
NURSE NOTES: Received report from Cass Ochoa RN. Patient awake, alert, able to make needs known. Patient ambulating to bathroom with steady gait noted. On O2 2L via NC, no respiratory distress noted. Left AC saline lock intact and patent. Safety precautions in place, bed locked, alarmed, and in lowest position, side rails up x3, and call light left within reach. Instructed patient to call for assistance, verbalized understanding. Will continue to monitor and continue with plan of care.
[2019-04-28] MEDS ORDERED: Albuterol ud Inhalation HHN PRN (07:45)
[2019-04-28 08:00] VITALS: BP 150/58
[2019-04-28] MEDS ORDERED: Piperacillin/Tazobactam 3.375 GM in NS 110 ML IVPB SCH (08:00)
[2019-04-28] MEDS ORDERED: Vancomycin 1.25gm/NS Premix IVPB ONE (08:00)
[2019-04-28] MEDS ORDERED: metFORMIN 500mg tab ORAL SCH (09:00)
[2019-04-28] MEDS ORDERED: Diclofenac 25mg tab ORAL SCH (09:00)
[2019-04-28] MEDS ORDERED: Anastrazole 1mg tab ORAL SCH (09:00)
[2019-04-28] MEDS ORDERED: Lisinopril 20mg tab ORAL SCH (09:00)
--- NOTE | 2019-04-28 09:03 | NUR ---
NURSE NOTES: 2D echo at bedside at this time, was informed by tech regarding fluid around the heart. Dr Kwong at bedside, informed and made aware. ordered for Dr Marsh as cardiology consult. Will continue to monitor patient.
[2019-04-28] MEDS: Cefepime 1gm/D5W 55ml IVPB SCH ×2 (09:30)
[2019-04-28] MEDS: Heparin 5000 units/ml inj SUBQ SCH ×2 (09:32→20:31)
--- NOTE | 2019-04-28 11:02 | NUR ---
HAND-OFF: Report given to Cassidy Grossman RN.
--- NOTE | 2019-04-28 11:03 | NUR ---
NURSE NOTES: Received report from SAGE Aguirre. Patient awake, alert, able to make needs known; however mostly Hebrew speaking. Family at bedside. Patient ambulating to bathroom with steady gait. On O2 2L via NC, no respiratory distress noted. Left AC saline lock intact and patent. Safety precautions in place, bed locked, alarmed, and in lowest position, side rails up x3, and call light left within reach. Will resume plan of care.
[2019-04-28] MEDS: NovoLOG Insulin Flexpen SUBQ SCH ×3 (11:26→20:29)
[2019-04-28 12:00] VITALS: BP 137/57
--- NOTE | 2019-04-28 12:00 | NUR ---
NURSE NOTES: Relations Coordinator picked up patient's home medications from the pharmacy and gave it to her son, Evin, to take home, as requested by pt.
[2019-04-28] MEDS ORDERED: Tubing IV Secondary IV ONE (14:10)
[2019-04-28] MEDS ORDERED: NS 275ml ONE (14:10)
[2019-04-28 14:37] LABS: APPEARANCE,URINE CLEAR; BILIRUBIN, URINE NEGATIVE (NEGATIVE); GLUCOSE, URINE (UA) NEGATIVE (NEGATIVE); KETONES,URINE NEGATIVE (NEGATIVE); LEUKOCYTE ESTERASE ,URINE NEGATIVE (NEGATIVE); NITRITE,URINE NEGATIVE (NEGATIVE); PH,URINE 5 (4.5-8.0); PROTEIN,URINE 2+ (NEGATIVE); UROBILINOGEN,URINE 1 MG/DL (0.0-1.0)
[2019-04-28 14:42] LABS: COLOR,URINE YELLOW
[2019-04-28 16:00] VITALS: BP 140/64
--- NOTE | 2019-04-28 16:10 | NUR ---
CASE MANAGEMENT:REVIEW 68 YR OLD FEMALE PRESENTED TO ER CC: SOB. WHEEZING NOTED IN ER PMH: BEING TREATED FOR PNA. BREAST CANCER SI: LARGE PERICARDIAL EFFUSION 97.7 75 18 122/46 93% ON RA BUN+45 CR+2.8 IS: IV AZITHROMYCIN IV ROCEPHIN 1L NS OLUS X2 CT CHEST CTA CHEST BLOOD CX CXR : TO STEP DOWN UNIT INTERQUAL CRITERIA MET
[2019-04-28] MEDS: Lisinopril 20mg tab ORAL SCH (17:07)
--- NOTE | 2019-04-28 17:15 | Consultation ---
DATE OF CONSULTATION: 04/28/2019 CONSULTING PHYSICIAN: Chris Calixto M.D. REFERRING PHYSICIAN: Sanchez Kwong M.D. CHIEF COMPLAINT AND REASON FOR CONSULTATION: Elevated BUN and creatinine and fluid overload. HISTORY OF PRESENT ILLNESS: The patient lives at home with family. She is a 68-year-old lady with about a 5-year history of diabetes and she is told by other doctors she has about 35% kidney function and chronic kidney disease. She presents with shortness of breath, pericardial and pleural effusions. The patient does not have a history of KS or chest pain, but she has been coughing and short of breath. There is a history of hypertension, hyperlipidemia, and possible asthma. She apparently was treated with azithromycin recently for cough. There has been no fever or chills. She has had increasing leg edema. PAST SURGICAL HISTORY: Right breast mastectomy and reconstruction, appendectomy, right and left total knee replacements, polyps of the throat. ALLERGIES: To penicillin. HOME MEDICATIONS: Listed on the computer, but it is not clear how accurate and includes metformin, which was discontinued. Other medicines listed, which the family apparently brought to the emergency room include albuterol inhaler, alendronate, amlodipine, Zithromax, diphenhydramine, hydrochlorothiazide, [place], ibuprofen, Tradjenta, lisinopril, omeprazole, ondansetron, calcitriol, and simvastatin. HABITS: She is a smoker most of her adult life, states she is stopping recently. No alcohol or drugs. SYSTEM REVIEW: HEAD, EYES, EARS, NOSE, AND THROAT: No known diabetic retinopathy. Vision and hearing is good. ENDOCRINE: Diabetes as above. No known thyroid disease. PULMONARY: History of smoking and questionable asthma as above. No known TB. CARDIAC: See history of present illness. GASTROINTESTINAL: Occasional upset stomach and heartburn. No GI bleeding or ulcers. GENITOURINARY: No dysuria, hematuria, urinary retention. 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 NEUROLOGIC: No CVA, syncope, or seizures. PHYSICAL EXAMINATION: GENERAL: The patient is alert, obese lady, in no acute distress. VITAL SIGNS: Temperature 98.5, respirations 22, pulse 84, and blood pressure 150/58. BMI 31.1. HEAD, EYES, EARS, NOSE, AND THROAT: Sclerae are nonicteric. Ocular motions intact in all directions. Oral mucosa is moist. NECK: No adenopathy or thyroid enlargement. LUNGS: Faint expiratory rhonchi. Decreased breath sounds at the bases bilaterally. HEART: Rhythm is regular. Normal S1 and S2. I hear no rub or murmur. ABDOMEN: Obese and soft. I am unable to feel liver or spleen. EXTREMITIES: Show 1 to 2+ edema in the lower extremities. BREASTS: Not examined at this time. NEUROLOGIC: She is alert and oriented. Cranial nerves are intact. No focal findings. LABORATORY AND DIAGNOSTIC DATA: Pertinent labs show sodium 142, potassium 4.6, BUN 45, creatinine 2.8, glucose 121. Albumin is 3.5. No urinalysis is available. White count 6.8, hemoglobin 10.4, platelet 104,000. A CT of the chest was done today showing a large pericardial effusion. The heart itself is not enlarged. There appears to be splenomegaly and hepatic surface nodularity and 2.1 cm left adrenal mass. There is a spiculated right lower lung nodule, which is unchanged from 2017. IMPRESSION: 1. Chronic kidney disease, likely stage 3 to 4. 2. Pericardial effusion. It is not clearly uremic pericarditis although this is in the differential diagnosis, it could be due to infection, breast cancer, or other etiologies. Uremic would be ruled out and other etiologies cannot be determined. 3. Generalized fluid overload. This could be due to congestive heart failure. BNP is 1242. She also has a mildly low albumin. Urinalysis not available, but there could be some component of proteinuria that is causing fluid overload. PLAN: At this time, we will check urine studies and give diuresis. 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. Monitor her cardiac status. I would continue LIZ inhibitor or ARB as long as the potassium stays normal and we will make further decisions based on results of the above. She should have cardiac consultation and possible pericardiocentesis. Chris Calixto M.D. DR: ALICE JOB#: [id number] CC:
--- NOTE | 2019-04-28 19:07 | NUR ---
HAND-OFF: Report given to SAGE Odell.
--- NOTE | 2019-04-28 19:10 | NUR ---
NURSE NOTES: Received patient from SAGE Benjamin. Will continue plan of care.
[2019-04-28 20:00] VITALS: BP 120/68
--- NOTE | 2019-04-28 20:15 | History and Physical Report ---
DATE OF ADMISSION: 04/28/2019 REASON FOR ADMISSION: Pericardial effusion and hypoxemia. HISTORY OF PRESENT ILLNESS: This is a 68-year-old female with history of hypertension and hyperlipidemia. The patient presented to the emergency room 3 days prior feeling ill with cough and evidence of possible pneumonia. The patient was given antibiotics and discharged to home. The patient now returned for worsening overall symptoms. The patient did undergo a CT of the chest in the emergency room with evidence of a large pericardial effusion, which is apparently new from prior examination. The patient also had bilateral pleural effusions and evidence of a spiculated right lower lung nodule, which was apparently evident back 2 years prior. The patient also has evidence of right mastectomy and possibly cirrhotic liver with associated splenomegaly. The patient is now admitted. She does admit to ongoing shortness of breath. Cardiology was called and the patient has been placed on antibiotics. The patient also notes worsening fatigue. The patient presents for worsening and severity overall. PAST MEDICAL HISTORY: Notable for hypertension, hyperlipidemia, diabetes, asthma, and prior history of lung nodule, stable. MEDICATIONS: Reviewed. ALLERGIES: Reviewed. SOCIAL HISTORY: Nonsmoker and nondrinker. The patient is otherwise retired at this time. REVIEW OF SYSTEMS: All 10-points reviewed and otherwise negative with the exception of no history of kidney dysfunction and possible end-stage kidney disease. PHYSICAL EXAMINATION: GENERAL: A well-developed female, appears to be chronically ill. VITAL SIGNS: Blood pressure 140/64, heart rate 77, temperature 98.6, and 93 sats on 2 liters. HEENT: Negative. Extraocular movements are grossly intact. NECK: Supple. LUNGS: Reduced breath sounds bilaterally. CARDIAC: S1, S2. Regular rate and rhythm, but somewhat distant without murmurs, rubs, or gallops. ABDOMEN: Soft, nontender, and nondistended. EXTREMITIES: Mild edema. No cyanosis or clubbing. NEUROLOGIC: Grossly nonfocal. LABORATORY DATA: Reviewed. Natriuretic peptide is elevated 1242. C-reactive protein 1.4. BUN and creatinine are 45 and 2.8. Lactic acid is otherwise normal. Hemoglobin 10.4. The CT as described above. IMPRESSION: Large pericardial effusion without any clear tamponade, possibly uremic pericarditis versus malignant pericarditis, bilateral pleural effusion, evidence of fluid overload, evidence of chronic kidney disease, history of asthma per prior report, history of hypertension, history of breast cancer, on anastrozole, although discontinued recently. RECOMMENDATIONS: 1. Empiric antibiotics. 2. ID evaluation. 3. Cardiology evaluation. 4. Renal evaluation to follow. 5. Monitor clinically. 6. Recommend and assess need of pericardiocentesis and/or pericardial window. We will discuss that with Cardiology and we will recommend further. The patient is presently guarded. Renal evaluation called and we will follow clinically for changes and interventions. Sanchez Kwong M.D. DR: ANALI JOB#: [id number] CC: FERCHO
[2019-04-29] VITALS: BP 139/61
--- NOTE | 2019-04-29 00:45 | Consultation ---
DATE OF CONSULTATION: 04/28/2019 CARDIOLOGY CONSULTATION CONSULTING PHYSICIAN: Barrington Marsh M.D. REQUESTING PHYSICIAN: Sanchez Kwong M.D. REASON FOR CONSULTATION: Pericardial effusion. HISTORY OF PRESENT ILLNESS: This is a 68-year-old female with chronic kidney disease due to diabetic nephropathy. She presented to the hospital with shortness of breath and was noted to have pleural and pericardial effusion. I have been asked to assist with cardiovascular care, addressing the pericardial effusion specifically. The patient had an echocardiogram today, it was reviewed by me. It is notable for a moderate-size pericardial effusion, predominantly anterior, but no signs of right atrial or ventricular collapse are noted. PAST MEDICAL HISTORY: Includes hypertension, hyperlipidemia, and diabetes mellitus. PAST SURGICAL HISTORY: She has a history of breast cancer with right mastectomy, prior bilateral knee replacements, and appendectomy. MEDICATIONS: Prior to admission and presently are reviewed and reconciled. ALLERGIES: Include penicillin. SOCIAL HISTORY: Negative for alcohol or substance abuse. She does have a long smoking history, but recently stopped. REVIEW OF SYSTEMS: Notable for the absence of myocardial infarction, rheumatic heart disease, irregular heartbeats, thyroid disorder, or abnormal blood clotting. PHYSICAL EXAMINATION: GENERAL: Moderately obese, in no acute distress, but unable to lie flat. VITAL SIGNS: Blood pressure 150/60, pulse 80, respirations 22, afebrile. HEENT: Conjunctivae are pink. Oropharynx clear. NECK: Supple. Jugular venous pressure elevated. LUNGS: With diminished breath sounds. No wheezing. CARDIAC: Regular rhythm and rate. Normal S1, S2. No murmur. There is no appreciable rub. There is no Kussmaul sign. ABDOMEN: Soft, nontender. EXTREMITIES: No edema. LABORATORY DATA: BUN 45, creatinine 2.8, potassium 4.6. EKG with sinus rhythm, normal , nonspecific ST change. Pro-natriuretic peptide 1242. IMPRESSION: 1. Pericardial effusion with no clinical or echocardiographic signs of tamponade, etiology likely uremic and also due to volume overload. 2. Chronic kidney disease. 3. Acute on chronic diastolic congestive heart failure with fluid overload. 4. Hypertensive heart disease. 5. Diabetes mellitus. PLAN: Diuresis efforts. Monitor clinical parameters. Optimize anti-failure medication with titration. No emergent indication for pericardiocentesis, however, if her condition deteriorates, she will be transferred to a tertiary care facility. Barrington Marsh M.D. DR: ANA JOB#: [id number] CC:
[2019-04-29 04:00] VITALS: BP 142/67
[2019-04-29 05:22] LABS: HEMATOCRIT 30.8 % (37.0-47.0); HEMOGLOBIN 10.1 G/DL (12.0-16.0); MEAN CORPUSCULAR VOLUME 93 FL (80-99); PLATELET COUNT 93 K/UL (150-450); RED BLOOD COUNT 3.31 M/UL (4.20-5.40); RED CELL DISTRIBUTION WIDTH 10.9 % (11.6-14.8); WHITE BLOOD COUNT 5.3 K/UL (4.8-10.8)
[2019-04-29 05:34] LABS: ANION GAP 10 mmol/L (5-15); BLOOD UREA NITROGEN 40 mg/dL (7-18); CARBON DIOXIDE 25 MMOL/L (21-32); CHLORIDE 106 MMOL/L (98-107); CREATININE 2.7 MG/DL (0.55-1.30); POTASSIUM 4.5 MMOL/L (3.5-5.1); SODIUM 141 MMOL/L (136-145)
[2019-04-29] MEDS: NovoLOG Insulin Flexpen SUBQ SCH ×4 (06:30→20:40)
[2019-04-29] MEDS ORDERED: Vancomycin 1gm in D5W 275ml IVPB SCH ×2 (07:00→08:00)
--- NOTE | 2019-04-29 07:27 | NUR ---
HAND-OFF: Report given to SAGE Tatum.
--- NOTE | 2019-04-29 07:40 | NUR ---
NURSE NOTES: Report received from SAGE Odell
[2019-04-29 08:00] VITALS: BP 145/67
--- NOTE | 2019-04-29 08:01 | Pulmonology Progress Note ---
Assessment/Plan Assessment/Plan Pulmonary Progress Note: HPI: The patient is a 68-year-old female with past medical history of hypertension and hyperlipidemia. The patient presented to the emergency room 3 days prior feeling ill with cough and evidence of possible pneumonia. The patient was given antibiotics and discharged to home. The patient now returned for worsening overall symptoms. The patient did undergo a CT of the chest in the emergency room with evidence of a large pericardial effusion, which is apparently new from prior examination. The patient also had bilateral pleural effusions and evidence of a spiculated right lower lung nodule, which was apparently evident back 2 years prior. The patient also has evidence of right mastectomy and possibly cirrhotic liver with associated splenomegaly. The patient is now admitted. She does admit to ongoing shortness of breath. Cardiology was called and the patient has been placed on antibiotics. The patient also notes worsening fatigue. The patient presents for worsening and severity overall. PAST MEDICAL HISTORY: Notable for hypertension, hyperlipidemia, diabetes, asthma, and prior history of lung nodule, stable, previous breast cancer MEDICATIONS: Reviewed. ALLERGIES: PCN, tape PHYSICAL EXAMINATION: GENERAL: A well-developed female, appears to be chronically ill. VITAL SIGNS NOTED: HEENT: Negative. Extraocular movements are grossly intact. NECK: Supple. LUNGS: Reduced breath sounds bilaterally. CARDIAC: S1, S2. Regular rate and rhythm, but somewhat distant without murmurs, rubs, or gallops. ABDOMEN: Soft, nontender, and nondistended. EXTREMITIES: Mild edema. No cyanosis or clubbing. NEUROLOGIC: Grossly nonfocal. LABORATORY DATA NOTED: IMPRESSION: Large pericardial effusion without any clear tamponade, possibly uremic pericarditis versus malignant pericarditis, bilateral pleural effusion, evidence of fluid overload, evidence of chronic kidney disease, history of asthma per prior report, history of hypertension, history of breast cancer, on anastrozole, although discontinued recently, stable pulmonary nodule, old granulomatous lung disease. Plan: 1. Constinue empiric antibiotics. 2. ID evaluation. 3. Cardiology following. 4. Renal evaluation pending. 5. Monitor clinically. 6. May need pericardiocentesis and/or pericardial window. The patient is presently guarded. Subjective ROS Limited/Unobtainable: No Allergies: Coded Allergies: PENICILLINS (Verified Allergy, Unknown, 02/08/11) Uncoded Allergies: TAPE (Allergy, Unknown, 03/31/17) Objective Last 24 Hour Vital Signs Date Time Temp Pulse Resp B/P (MAP) Pulse Ox O2 Delivery O2 Flow Rate FiO2 04/29/19 07:50 72 19 96 Room Air 21 04/29/19 04:00 98.1 87 20 142/67 (92) 99 04/29/19 04:00 Nasal Cannula 2.0 04/29/19 03:52 70 04/29/19 00:00 98.4 88 20 139/61 (87) 98 04/29/19 00:00 Nasal Cannula 2.0 04/28/19 23:43 90 04/28/19 20:00 98.2 73 20 120/68 (85) 97 04/28/19 20:00 Nasal Cannula 2.0 04/28/19 19:24 90 04/28/19 17:07 140/64 04/28/19 16:00 Nasal Cannula 2.0 04/28/19 16:00 98.6 77 20 140/64 (89) 95 04/28/19 15:44 80 04/28/19 12:00 Nasal Cannula 2.0 04/28/19 12:00 97.7 84 21 137/57 (83) 97 04/28/19 11:40 80 04/28/19 09:29 150/58 04/28/19 09:29 84 150/58 04/28/19 08:00 98.5 84 22 150/58 (88) 95 04/28/19 08:00 Nasal Cannula 2.0 Intake and Output 04/28/19 04/29/19 19:00 07:00 Intake Total 750.000 ml Balance 750.000 ml Intake Oral 420 ml IV Total 330.000 ml # Voids 7 # Bowel Movements 1 Microbiology Date/Time Source Procedure Growth Status 04/27/19 23:30 Blood Blood Culture - Preliminary NO GROWTH AFTER 24 HOURS Resulted 04/27/19 23:15 Blood Blood Culture - Preliminary NO GROWTH AFTER 24 HOURS Resulted 04/28/19 03:00 Nasal Nares - Final Complete 04/28/19 03:00 Nasal Nares - Final Complete Laboratory Tests 04/28/19 08:15: C-Reactive Protein, Quantitative 1.4H, Anti-Nuclear Antibody Screen [Pending] 04/28/19 14:00: Urine Color Yellow, Urine Appearance Clear, Urine pH 5, Urine Specific [place] 1.015, Urine Protein 2+H, Urine Glucose (UA) Negative, Urine Ketones Negative, Urine Blood Negative, Urine Nitrite Negative, Urine Bilirubin Negative, Urine Urobilinogen 1H, Urine Leukocyte Esterase Negative, Urine RBC 0, Urine WBC 0-2, Urine Squamous Epithelial Cells Few, Urine Bacteria Occasional, Urine Random Creatinine [Pending], Urine Random Microalbumin [Pending], Urine Random Total Protein 41H, Urine Creatinine 81.0, Urine Microalbumin/Creatinine Ratio [Pending ] 04/29/19 03:20: White Blood Count 5.3, Red Blood Count 3.31L, Hemoglobin 10.1L, Hematocrit 30.8L , Mean Corpuscular Volume 93, Mean Corpuscular Hemoglobin 30.6, Mean Corpuscular Hemoglobin Concent 32.8, Red Cell Distribution Width 10.9L, Platelet Count 93L, Mean Platelet Volume 8.1, Neutrophils (%) (Auto) , Lymphocytes (%) (Auto) , Monocytes (%) (Auto) , Eosinophils (%) (Auto) , Basophils (%) (Auto) , Erythrocyte Sedimentation Rate 72H, Sodium Level 141, Potassium Level 4.5, Chloride Level 106, Carbon Dioxide Level 25, Anion Gap 10, Blood Urea Nitrogen 40H, Creatinine 2.7H, Estimat Glomerular Filtration Rate 17.7, Glucose Level 86, Uric Acid 8.4H, Calcium Level 9.0, Random Vancomycin Level 15.7 Current Medications Medications (Trade) Dose Ordered Sig/Margarito Route PRN Reason Start Time Stop Time Status Last Admin Dose Admin Acetaminophen/ Hydrocodone Bitart ([place] 10/325) 1 tab Q4H PRN ORAL Severe Pain (Pain Scale 7-10) 04/28/19 06:30 05/05/19 06:29 Acetaminophen/ Hydrocodone Bitart ([place] 5/325) 1 tab Q6H PRN ORAL Moderate Pain (Pain Scale 4-6) 04/28/19 06:30 05/05/19 06:29 Albuterol Sulfate (Proventil) 2.5 mg Q6H PRN HHN Shortness of Breath 04/28/19 07:45 05/03/19 07:44 Amlodipine Besylate (Norvasc) 5 mg DAILY ORAL 04/29/19 09:00 05/29/19 08:59 Azithromycin (Zithromax) 250 mg DAILY ORAL 04/29/19 09:00 05/06/19 08:59 Cefepime HCl 1 gm/ Dextrose 55 ml @ 110 mls/hr Q24H IVPB 04/28/19 09:00 05/05/19 08:59 04/28/19 09:30 Dextrose (Dextrose 50%) 25 ml Q30M PRN IV Hypoglycemia 04/28/19 06:45 05/28/19 06:44 Dextrose (Dextrose 50%) 50 ml Q30M PRN IV Hypoglycemia 04/28/19 06:45 05/28/19 06:44 Diphenhydramine HCl (Benadryl) 25 mg Q6H PRN ORAL Itching 04/28/19 06:30 05/28/19 06:29 Furosemide (Lasix) 40 mg EVERY 12 HOURS IV 04/28/19 12:15 05/28/19 12:14 04/28/19 20:30 Heparin Sodium (Porcine) (Heparin 5000 units/ml) 5,000 units EVERY 12 HOURS SUBQ 04/28/19 09:00 05/28/19 08:59 04/28/19 20:31 Ibuprofen (Motrin) 600 mg Q8H PRN ORAL Mild Pain (Pain Scale 1-3) 04/28/19 09:00 05/28/19 08:59 Insulin Aspart (NovoLOG) BEFORE MEALS AND HS SUBQ 04/28/19 11:30 05/28/19 11:29 Lisinopril (Prinivil) 20 mg BID ORAL 04/28/19 18:00 05/28/19 17:59 04/28/19 17:07 Ondansetron HCl (Zofran ODT) 4 mg Q6H PRN ORAL Nausea & Vomiting 04/28/19 06:30 05/28/19 06:29 Paricalcitol (Zemplar) 1 mcg DAILY ORAL 04/29/19 09:00 05/29/19 08:59 Vancomycin HCl (Vanco rx to dose) 1 ea DAILY PRN MISC Per rx protocol 04/28/19 08:00 05/28/19 07:59 Vancomycin HCl 1 gm/Dextrose 275 ml @ 183.708 mls/hr ONCE IVPB 04/29/19 08:00 04/29/19 10:00 Barrington Morris MD Apr 29, 2019 08:01
[2019-04-29] MEDS: Heparin 5000 units/ml inj SUBQ SCH ×2 (09:00→20:40)
--- NOTE | 2019-04-29 09:48 | NUR ---
NURSE NOTES: seen by Dr Armstrong, will follow up with new order
--- NOTE | 2019-04-29 09:48 | Nephrology Progress Note ---
Assessment/Plan Assessment/Plan: A/P 1. RYAN on CKD 4- BL Cr 1.8 - Cr down to 2.7 - Will DC NSAIDS - OK to continue LIZ-I for now 2. Pericardial effusion. Not uremic. BUN 40 3. Generalized fluid overload. Breathing well. PRN lasix Subjective Date patient seen: Apr 29, 2019 Time patient seen: 09:38 ROS Limited/Unobtainable: Yes Allergies: Coded Allergies: PENICILLINS (Verified Allergy, Unknown, 02/08/11) Uncoded Allergies: TAPE (Allergy, Unknown, 03/31/17) Subjective Patient feeling better. Says breathing has improved Objective Last 24 Hour Vital Signs Date Time Temp Pulse Resp B/P (MAP) Pulse Ox O2 Delivery O2 Flow Rate FiO2 04/29/19 07:50 72 19 96 Room Air 21 04/29/19 04:00 98.1 87 20 142/67 (92) 99 04/29/19 04:00 Nasal Cannula 2.0 04/29/19 03:52 70 04/29/19 00:00 98.4 88 20 139/61 (87) 98 04/29/19 00:00 Nasal Cannula 2.0 04/28/19 23:43 90 04/28/19 20:00 98.2 73 20 120/68 (85) 97 04/28/19 20:00 Nasal Cannula 2.0 04/28/19 19:24 90 04/28/19 17:07 140/64 04/28/19 16:00 Nasal Cannula 2.0 04/28/19 16:00 98.6 77 20 140/64 (89) 95 04/28/19 15:44 80 04/28/19 12:00 Nasal Cannula 2.0 04/28/19 12:00 97.7 84 21 137/57 (83) 97 04/28/19 11:40 80 Intake and Output 04/28/19 04/29/19 19:00 07:00 Intake Total 750.000 ml Balance 750.000 ml Intake Oral 420 ml IV Total 330.000 ml # Voids 7 # Bowel Movements 1 Laboratory Tests 04/28/19 14:00: Urine Color Yellow, Urine Appearance Clear, Urine pH 5, Urine Specific [place] 1.015, Urine Protein 2+H, Urine Glucose (UA) Negative, Urine Ketones Negative, Urine Blood Negative, Urine Nitrite Negative, Urine Bilirubin Negative, Urine Urobilinogen 1H, Urine Leukocyte Esterase Negative, Urine RBC 0, Urine WBC 0-2, Urine Squamous Epithelial Cells Few, Urine Bacteria Occasional, Urine Random Creatinine [Pending], Urine Random Microalbumin [Pending], Urine Random Total Protein 41H, Urine Creatinine 81.0, Urine Microalbumin/Creatinine Ratio [Pending ] 04/29/19 03:20: White Blood Count 5.3, Red Blood Count 3.31L, Hemoglobin 10.1L, Hematocrit 30.8L , Mean Corpuscular Volume 93, Mean Corpuscular Hemoglobin 30.6, Mean Corpuscular Hemoglobin Concent 32.8, Red Cell Distribution Width 10.9L, Platelet Count 93L, Mean Platelet Volume 8.1, Neutrophils (%) (Auto) , Lymphocytes (%) (Auto) , Monocytes (%) (Auto) , Eosinophils (%) (Auto) , Basophils (%) (Auto) , Erythrocyte Sedimentation Rate 72H, Sodium Level 141, Potassium Level 4.5, Chloride Level 106, Carbon Dioxide Level 25, Anion Gap 10, Blood Urea Nitrogen 40H, Creatinine 2.7H, Estimat Glomerular Filtration Rate 17.7, Glucose Level 86, Uric Acid 8.4H, Calcium Level 9.0, Random Vancomycin Level 15.7 Height (Feet): 5 Height (Inches): 2.00 Weight (Pounds): 170 General Appearance: no apparent distress EENT: normal ENT inspection Neck: normal alignment, supple Cardiovascular: normal rate, regular rhythm Respiratory/Chest: rhonchi - bilaterally Abdomen: non tender, soft Edema: no edema noted Arm (L), no edema noted Arm (R), no edema noted Leg (L), no edema noted Leg (R), no edema noted Pedal (L), no edema noted Pedal (R), no edema noted Generalized Samir Armstrong MD Apr 29, 2019 09:48
[2019-04-29] MEDS: Cefepime 1gm/D5W 55ml IVPB SCH ×2 (10:07)
[2019-04-29] MEDS: Lisinopril 20mg tab ORAL SCH ×2 (10:09→17:26)
[2019-04-29] MEDS: Azithromycin 250mg tab ORAL SCH (10:09)
--- NOTE | 2019-04-29 10:10 | NUR ---
NURSE NOTES: heparin held plt 93
[2019-04-29] MEDS: Paricalcitol 1mcg cap ORAL SCH (10:44)
--- NOTE | 2019-04-29 10:44 | NUR ---
NURSE NOTES: Pt awake, no apparent acute distress, all due meds given. No significant change of condition at this time.Will continue to monitor
--- NOTE | 2019-04-29 10:45 | NUR ---
NURSE NOTES: Patient asleep when received,easily arousal to verbal and tactile stimuli.No apparent acute distress, on 2LPM nasal canula.Alert and oriented x 4, able to make needs known at all the time.Able to self repositioned.Denied of any pain and discomfort at this time.Call light within easy reach, bed alarm on. Bed in lower position and 2/4 side up to enhance repositioning.Will continue to monitor
[2019-04-29 12:00] VITALS: BP 146/76
--- NOTE | 2019-04-29 12:30 | NUR ---
NURSE NOTES: insulin held due to poor food intake, bs 113
--- NOTE | 2019-04-29 14:14 | NUR ---
NURSE NOTES: Patient sitting at the bedside, family visitors in the room.Denied of any pain and discomfort. Call light within easy reach.Will continue to monitor
[2019-04-29 16:00] VITALS: BP 147/61
--- NOTE | 2019-04-29 16:20 | NUR ---
NURSE NOTES: Pt still with visitor at bedside with no apparent distress.Accu check done and 118.Will hold insulin due to poor food intake.Kept on close monitoring
--- NOTE | 2019-04-29 18:19 | NUR ---
NURSE NOTES: Patient in bed, visitors still at bedside.Eat less than 25% at dinner. Insulin held. Denied of any pain and discomfort.Will continue to monitor
--- NOTE | 2019-04-29 19:16 | NUR ---
HAND-OFF: Report given to SAGE Maguire.
--- NOTE | 2019-04-29 19:17 | NUR ---
NURSE NOTES: Received patient from Deepti CAZARES. Patient is awake, alert and oriented x4. Receiving oxygen via Nasal cannula at 2L/min, patient showing no signs of respiratory distress. IV site is left AC 20g, patent and asymptomatic. Bed is locked, placed in lowest position, side rails up x2, call light within reach. Will continue to monitor.
[2019-04-29 20:00] VITALS: BP 151/68
--- NOTE | 2019-04-29 20:50 | NUR ---
NURSE NOTES: Patient resting comfortably in bed, no reports of pain, will continue to monitor.
[2019-04-30] VITALS: BP 147/61
--- NOTE | 2019-04-30 01:45 | NUR ---
NURSE NOTES: Patient is resting comfortably in bed, no complaints of pain, no signs of distress. Will continue to monitor.
--- NOTE | 2019-04-30 03:30 | Progress Note ---
DATE: 04/29/2019 CARDIOLOGY PROGRESS NOTE SUBJECTIVE: The patient is on IV antimicrobials. Increased urine output noted; however, strict I's and O's 7 have not been obtained do not seem to be accurate. OBJECTIVE: VITAL SIGNS: Blood pressure 151/68, pulse 71, respirations 20, and temperature 99.1. LUNGS: Diminished breath sounds. CARDIAC: Regular rhythm and rate. Normal S1 and S2 with no rub. ABDOMEN: Soft. EXTREMITIES: No edema. LABORATORY DATA: White count 5.3 and hemoglobin 10.1. Potassium 4.5. IMPRESSION: 1. Acute on chronic diastolic congestive heart failure. 2. Acute on chronic kidney disease. 3. Pericardial effusion with no signs of tamponade. PLAN: 1. Continue diuresis. 2. Off nonsteroidal drugs. 3. Cautious use of LIZ inhibitors. 4. No urgent indication for pericardiocentesis at this time. Barrington Marsh M.D. DR: MEETA JOB#: [id number] CC:
[2019-04-30 04:00] VITALS: BP 153/61
[2019-04-30] MEDS: NovoLOG Insulin Flexpen SUBQ SCH ×4 (06:30→20:40)
[2019-04-30 06:43] LABS: ANION GAP 11 mmol/L (5-15); BLOOD UREA NITROGEN 41 mg/dL (7-18); CALCIUM 9.4 MG/DL (8.5-10.1); CARBON DIOXIDE 28 MMOL/L (21-32); CHLORIDE 103 MMOL/L (98-107); CREATININE 2.8 MG/DL (0.55-1.30); POTASSIUM 4.3 MMOL/L (3.5-5.1); SODIUM 142 MMOL/L (136-145)
--- NOTE | 2019-04-30 07:30 | NUR ---
RECEIVED PT. AWAKE ,ALERT ORIENTEDX4 SKIN WARM AND DRY TO TOUCH,MOVES ALL EXTREMETIES WITHOUT ANY WEAKNESS NOTICED ,ON O2 2L BY NC NO RESP DISTRESS OBSERVED DENIES ANY PAIN OR DISCOMFORT
--- NOTE | 2019-04-30 07:38 | NUR ---
HAND-OFF: Report given to Daron CAZARES. Patient in stable condition.
--- NOTE | 2019-04-30 07:50 | Nephrology Progress Note ---
Assessment/Plan Assessment/Plan: A/P 1. RYAN on CKD 4- BL Cr 1.8 - Cr 2.8. Will stop lasix and monitor while on Lisinopril - DCed NSAIDS - OK to continue LIZ-I for now 2. Pericardial effusion. Not uremic. BUN 41 3. Generalized fluid overload. Breathing well. - will DC lasix for now, breathing well. Cr up to 2.8 Subjective Date patient seen: Apr 30, 2019 Time patient seen: 07:48 ROS Limited/Unobtainable: No Allergies: Coded Allergies: PENICILLINS (Verified Allergy, Unknown, 02/08/11) Uncoded Allergies: TAPE (Allergy, Unknown, 03/31/17) Subjective Patient breathing better Objective Last 24 Hour Vital Signs Date Time Temp Pulse Resp B/P (MAP) Pulse Ox O2 Delivery O2 Flow Rate FiO2 04/30/19 04:00 99.1 76 20 153/61 (91) 96 04/30/19 04:00 Nasal Cannula 2.0 Nasal Cannula 2.0 04/30/19 03:43 85 04/30/19 00:00 98.7 73 20 147/61 (89) 99 04/30/19 00:00 Nasal Cannula 2.0 Nasal Cannula 2.0 04/29/19 23:49 72 04/29/19 20:00 99.1 71 20 151/68 (95) 97 04/29/19 20:00 Nasal Cannula 2.0 Nasal Cannula 2.0 04/29/19 19:47 89 04/29/19 17:26 147/81 04/29/19 16:00 68 04/29/19 16:00 98.1 70 18 147/61 (89) 98 04/29/19 16:00 Nasal Cannula 2.0 Nasal Cannula 2.0 04/29/19 14:00 81 04/29/19 12:00 Nasal Cannula 2.0 Nasal Cannula 2.0 04/29/19 12:00 98.4 73 20 146/76 (99) 98 04/29/19 10:09 145/67 04/29/19 10:08 75 145/67 04/29/19 08:00 Nasal Cannula 2.0 Nasal Cannula 2.0 04/29/19 08:00 78 04/29/19 08:00 98.2 75 20 145/67 (93) 99 04/29/19 07:50 72 19 96 Room Air 21 Intake and Output 04/29/19 04/30/19 19:00 07:00 Intake Total 505 ml Output Total 0 ml Balance 505 ml Intake Oral 450 ml IV Total 55 ml Output Urine Total 0 ml # Voids 5 # Bowel Movements 1 Laboratory Tests 04/30/19 03:19: Sodium Level 142, Potassium Level 4.3, Chloride Level 103, Carbon Dioxide Level 28, Anion Gap 11, Blood Urea Nitrogen 41H, Creatinine 2.8H, Estimat Glomerular Filtration Rate 16.9, Glucose Level 80, Calcium Level 9.4 Height (Feet): 5 Height (Inches): 2.00 Weight (Pounds): 176 General Appearance: no apparent distress, alert EENT: normal ENT inspection Neck: normal alignment, supple Cardiovascular: normal rate, regular rhythm Respiratory/Chest: lungs clear, normal breath sounds Abdomen: non tender, soft Edema: no edema noted Arm (L), no edema noted Arm (R), no edema noted Leg (L), no edema noted Leg (R), no edema noted Pedal (L), no edema noted Pedal (R), no edema noted Generalized Samir Armstrong MD Apr 30, 2019 07:50
[2019-04-30 08:00] VITALS: BP 121/65
--- NOTE | 2019-04-30 08:00 | NUR ---
DR CASTAÑEDA SAW THE PT
[2019-04-30] MEDS: Paricalcitol 1mcg cap ORAL SCH (08:47)
[2019-04-30] MEDS: Azithromycin 250mg tab ORAL SCH (08:47)
[2019-04-30] MEDS: Lisinopril 20mg tab ORAL SCH ×2 (08:49→17:15)
[2019-04-30] MEDS: Cefepime 1gm/D5W 55ml IVPB SCH ×2 (08:54)
--- NOTE | 2019-04-30 10:30 | NUR ---
REPRT GIVEN TO JADA ROSE
--- NOTE | 2019-04-30 10:30 | NUR ---
NURSE NOTES: Received pt from SAGE Daniel in stable condition. Pt is awake in bed, AAOx 4 on 2L O2 via NC. SR on quality assurance monitor chassis. Pt is ambulatory, requested to be assisted to bathroom, gait is steady, LAC 20g IV noted, skin is intact with no alterations, R mastectomy scar noted and no BP/IV will be taken from the R arm. Bed in lowest position, alarm on, side rails up x2, call light within reach. Will continue to monitor.
--- NOTE | 2019-04-30 10:53 | General Progress Note ---
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 PLAN care noted renal and cards optimization appears better oxygen follow up exam impression, plan, and exam edited and reviewed in detail care discussed with RN Subjective Allergies: Coded Allergies: PENICILLINS (Verified Allergy, Unknown, 02/08/11) Uncoded Allergies: TAPE (Allergy, Unknown, 03/31/17) Subjective care plan cardiology noted no tamponade Objective Last 24 Hour Vital Signs Date Time Temp Pulse Resp B/P (MAP) Pulse Ox O2 Delivery O2 Flow Rate FiO2 04/30/19 08:49 121/65 04/30/19 08:48 71 121/65 04/30/19 08:00 Nasal Cannula 2.0 Nasal Cannula 2.0 04/30/19 08:00 77 04/30/19 08:00 98.3 71 18 121/65 (83) 97 04/30/19 04:00 99.1 76 20 153/61 (91) 96 04/30/19 04:00 Nasal Cannula 2.0 Nasal Cannula 2.0 04/30/19 03:43 85 04/30/19 00:00 98.7 73 20 147/61 (89) 99 04/30/19 00:00 Nasal Cannula 2.0 Nasal Cannula 2.0 04/29/19 23:49 72 04/29/19 20:00 99.1 71 20 151/68 (95) 97 04/29/19 20:00 Nasal Cannula 2.0 Nasal Cannula 2.0 04/29/19 19:47 89 04/29/19 17:26 147/81 04/29/19 16:00 68 04/29/19 16:00 98.1 70 18 147/61 (89) 98 04/29/19 16:00 Nasal Cannula 2.0 Nasal Cannula 2.0 04/29/19 14:00 81 04/29/19 12:00 Nasal Cannula 2.0 Nasal Cannula 2.0 04/29/19 12:00 98.4 73 20 146/76 (99) 98 Intake and Output 04/29/19 04/30/19 19:00 07:00 Intake Total 505 ml Output Total 0 ml Balance 505 ml Intake Oral 450 ml IV Total 55 ml Output Urine Total 0 ml # Voids 5 # Bowel Movements 1 Laboratory Tests 04/30/19 03:19: Sodium Level 142, Potassium Level 4.3, Chloride Level 103, Carbon Dioxide Level 28, Anion Gap 11, Blood Urea Nitrogen 41H, Creatinine 2.8H, Estimat Glomerular Filtration Rate 16.9, Glucose Level 80, Calcium Level 9.4 Height (Feet): 5 Height (Inches): 2.00 Weight (Pounds): 176 Objective WDWN NAD reduced breath sounds bilaterally without rhonchi or wheeze [id number] without MRG NABS nontender no HSM no CC mild edema nonfocal Sanchez Kwong MD Apr 30, 2019 10:53
[2019-04-30 12:00] VITALS: BP 151/64
[2019-04-30] MEDS ORDERED: NS 275ml ONE (15:25)
[2019-04-30 16:00] VITALS: BP 129/62
--- NOTE | 2019-04-30 16:40 | NUR ---
NURSE NOTES: pt refused insulin. BG is 132 and pt was informed. pt states she takes oral antidiabetic medication at home and prefers not to get insulin injection. No insulin given. Will continue to monitor pt.
--- NOTE | 2019-04-30 19:30 | NUR ---
HAND-OFF: Report given to SAGE Steele.Pt in stable condition.
--- NOTE | 2019-04-30 19:36 | NUR ---
NURSE NOTES: Received report from Yandy CAZARES, pt. in bed awake, A/O x's4- able to make needs known, no signs or symptoms of acute cardiac or respiratory distress noted, bed alarm on, side rails up x's 2 and safety brakes engaged, pt. aware to ask for assist when ambulating - as she is a fall risk, pt. appears to be sating well on 2L NC- no distress noted, call light within easy reach, Lt. AC 20G IV intact and patent, safety measures continued, will continue with plan of care.
[2019-04-30 20:00] VITALS: BP 141/71
--- NOTE | 2019-04-30 21:15 | Progress Note ---
DATE: 04/30/2019 CARDIOLOGY PROGRESS NOTE SUBJECTIVE: Less shortness of breath noted. No chest pain. Blood pressure parameters improving as well. OBJECTIVE: VITAL SIGNS: Blood pressure 121/65, early 151/68. Monitored rhythm, sinus. No ectopy. LUNGS: Diminished breath sounds. HEART: Regular rhythm. Normal S1, S2 with no rub. ABDOMEN: Soft. EXTREMITIES: There is trace dependent edema. LABORATORY DATA: Potassium is 4.3, BUN 41, and creatinine 2.8. IMPRESSION: 1. Pleural effusions. 2. Pericardial effusions. 3. Chronic kidney disease. 4. Hypertensive heart disease. 5. No tamponade. 6. Acute on chronic diastolic congestive heart failure due to fluid overload. PLAN: 1. We will need a maintenance dose of diuretic. 2. May benefit from thoracentesis. 3. No current indication for pericardiocentesis. Barrington Marsh M.D. DR: JUNE JOB#: [id number] CC:
[2019-05-01] VITALS: BP 133/65
--- NOTE | 2019-05-01 00:18 | Cardiology Report ---
APPROVED REPORT EKG Measurement Heart [id number] Sinus rhythm with premature atrial complexes Nonspecific T wave abnormality Abnormal ECG
[2019-05-01 04:00] VITALS: BP 141/62
[2019-05-01] MEDS: NovoLOG Insulin Flexpen SUBQ SCH ×4 (05:30→21:00)
[2019-05-01 06:04] LABS: ANION GAP 10 mmol/L (5-15); BLOOD UREA NITROGEN 47 mg/dL (7-18); CALCIUM 9.4 MG/DL (8.5-10.1); CARBON DIOXIDE 28 MMOL/L (21-32); CHLORIDE 103 MMOL/L (98-107); CREATININE 2.8 MG/DL (0.55-1.30); POTASSIUM 3.8 MMOL/L (3.5-5.1); SODIUM 140 MMOL/L (136-145)
--- NOTE | 2019-05-01 07:05 | NUR ---
NURSE NOTES: Received pt from SAGE Steele in stable condition. Pt is awake in bed, AAOx 4 on 2L O2 via NC. SR on cardiac monitor technician. Pt is ambulatory with steady gait but agreed to use call light for assistance, LAC 20g IV noted, skin is intact with no alterations, R mastectomy scar noted- no BP/IV will be taken from R arm. Bed is in lowest position, alarm on, side rails up x2, call light within reach. Will continue to monitor.
--- NOTE | 2019-05-01 07:05 | NUR ---
HAND-OFF: Report given to Yandy CAZARES, pt. remains stable and no signs of distress noted.
--- NOTE | 2019-05-01 07:45 | General Progress Note ---
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 PLAN care noted repeat imaging consider thoracentesis renal and cards optimization appears better oxygen follow up exam keep negative dc planning impression, plan, and exam edited and reviewed in detail care discussed with RN Subjective Allergies: Coded Allergies: PENICILLINS (Verified Allergy, Unknown, 02/08/11) Uncoded Allergies: TAPE (Allergy, Unknown, 03/31/17) Subjective care plan cardiology noted no tamponade CXR pending Objective Last 24 Hour Vital Signs Date Time Temp Pulse Resp B/P (MAP) Pulse Ox O2 Delivery O2 Flow Rate FiO2 05/01/19 04:00 98.4 69 18 141/62 (88) 98 05/01/19 04:00 Nasal Cannula 2.0 Nasal Cannula 2.0 05/01/19 04:00 2.0 05/01/19 03:38 72 05/01/19 00:00 98.1 72 18 133/65 (87) 98 05/01/19 00:00 2.0 05/01/19 00:00 Nasal Cannula 2.0 Nasal Cannula 2.0 04/30/19 23:40 73 04/30/19 21:09 97 Nasal Cannula 2.0 28 04/30/19 20:00 2.0 04/30/19 20:00 98.8 78 18 141/71 (94) 99 04/30/19 20:00 Nasal Cannula 2.0 Nasal Cannula 2.0 04/30/19 20:00 74 18 96 Nasal Cannula 2.0 28 04/30/19 19:33 75 04/30/19 17:15 129/62 04/30/19 16:00 72 04/30/19 16:00 98.0 68 18 129/62 (84) 99 04/30/19 16:00 Nasal Cannula 2.0 Nasal Cannula 2.0 04/30/19 12:00 Nasal Cannula 2.0 Nasal Cannula 2.0 04/30/19 12:00 98.1 72 20 151/64 (93) 98 04/30/19 12:00 72 04/30/19 11:00 72 20 97 Room Air 21 04/30/19 08:49 121/65 04/30/19 08:48 71 121/65 04/30/19 08:00 Nasal Cannula 2.0 Nasal Cannula 2.0 04/30/19 08:00 77 04/30/19 08:00 98.3 71 18 121/65 (83) 97 Intake and Output 04/30/19 05/01/19 19:00 07:00 Intake Total 615 ml Output Total 800 ml Balance -185 ml Intake Oral 560 ml IV Total 55 ml Output Urine Total 800 ml # Voids 1 2 # Bowel Movements 1 Laboratory Tests 05/01/19 03:51: Sodium Level 140, Potassium Level 3.8, Chloride Level 103, Carbon Dioxide Level 28, Anion Gap 10, Blood Urea Nitrogen 47H, Creatinine 2.8H, Estimat Glomerular Filtration Rate 16.9, Glucose Level 88, Calcium Level 9.4, Random Vancomycin Level 0.4 Height (Feet): 5 Height (Inches): 2.00 Weight (Pounds): 176 Objective WDWN NAD reduced breath sounds bilaterally without rhonchi or wheeze [id number] without MRG NABS nontender no HSM no CC mild edema nonfocal Sanchez Kwong MD May 01, 2019 07:45
[2019-05-01 08:00] VITALS: BP 118/65
[2019-05-01] MEDS: Paricalcitol 1mcg cap ORAL SCH (08:27)
[2019-05-01] MEDS: Lisinopril 20mg tab ORAL SCH (08:27)
[2019-05-01] MEDS: Azithromycin 250mg tab ORAL SCH (08:27)
[2019-05-01] MEDS ORDERED: Vancomycin 1.5gm/NS Premix IVPB ONE (08:30)
--- NOTE | 2019-05-01 08:31 | Nephrology Progress Note ---
Assessment/Plan Assessment/Plan: A/P 1. RYAN on CKD 4- BL Cr 1.8 - Cr 2.8. Will stop lasix and decrease Lisinopril - DCed NSAIDs 2. Pericardial effusion. Not due to uremia 3. Generalized fluid overload. Breathing well. - will DC lasix - resolved Subjective Date patient seen: May 01, 2019 Time patient seen: 08:29 ROS Limited/Unobtainable: No Allergies: Coded Allergies: PENICILLINS (Verified Allergy, Unknown, 02/08/11) Uncoded Allergies: TAPE (Allergy, Unknown, 03/31/17) Subjective Patient feeling back to baseline Objective Last 24 Hour Vital Signs Date Time Temp Pulse Resp B/P (MAP) Pulse Ox O2 Delivery O2 Flow Rate FiO2 05/01/19 08:28 72 118/65 05/01/19 08:27 118/65 05/01/19 08:00 2.0 05/01/19 08:00 98.1 72 18 118/65 (82) 100 05/01/19 04:00 98.4 69 18 141/62 (88) 98 05/01/19 04:00 Nasal Cannula 2.0 Nasal Cannula 2.0 05/01/19 04:00 2.0 05/01/19 03:38 72 05/01/19 00:00 98.1 72 18 133/65 (87) 98 05/01/19 00:00 2.0 05/01/19 00:00 Nasal Cannula 2.0 Nasal Cannula 2.0 04/30/19 23:40 73 04/30/19 21:09 97 Nasal Cannula 2.0 28 04/30/19 20:00 2.0 04/30/19 20:00 98.8 78 18 141/71 (94) 99 04/30/19 20:00 Nasal Cannula 2.0 Nasal Cannula 2.0 04/30/19 20:00 74 18 96 Nasal Cannula 2.0 28 04/30/19 19:33 75 04/30/19 17:15 129/62 04/30/19 16:00 72 04/30/19 16:00 98.0 68 18 129/62 (84) 99 04/30/19 16:00 Nasal Cannula 2.0 Nasal Cannula 2.0 04/30/19 12:00 Nasal Cannula 2.0 Nasal Cannula 2.0 10/19/19 12:00 98.1 72 20 151/64 (93) 98 04/30/19 12:00 72 04/30/19 11:00 72 20 97 Room Air 21 04/30/19 08:49 121/65 04/30/19 08:48 71 121/65 Intake and Output 04/30/19 05/01/19 19:00 07:00 Intake Total 615 ml Output Total 800 ml Balance -185 ml Intake Oral 560 ml IV Total 55 ml Output Urine Total 800 ml # Voids 1 2 # Bowel Movements 1 Laboratory Tests 05/01/19 03:51: Sodium Level 140, Potassium Level 3.8, Chloride Level 103, Carbon Dioxide Level 28, Anion Gap 10, Blood Urea Nitrogen 47H, Creatinine 2.8H, Estimat Glomerular Filtration Rate 16.9, Glucose Level 88, Calcium Level 9.4, Random Vancomycin Level 0.4 Height (Feet): 5 Height (Inches): 2.00 Weight (Pounds): 176 General Appearance: no apparent distress EENT: normal ENT inspection Neck: normal alignment, supple Cardiovascular: normal rate, regular rhythm Respiratory/Chest: lungs clear, normal breath sounds Abdomen: non tender, soft Edema: no edema noted Arm (L), no edema noted Arm (R), no edema noted Leg (L), no edema noted Leg (R), no edema noted Pedal (L), no edema noted Pedal (R), no edema noted Generalized Samir Armstrong MD May 01, 2019 08:31
--- NOTE | 2019-05-01 09:19 | NUR ---
NURSE NOTES: Pt taken down for 2view CXR via wheel chair accompanied by L[facility] (Rad personnel). Pt in stable condition. spO2 98% without NC. Pt off tele monitor until she returns to unit.
--- NOTE | 2019-05-01 09:33 | NUR ---
NURSE NOTES: Pt returned to unit in stable condition via wheel chair accompanied with [employer] [facility] personnel. Pt hooked back to tele monitor and NC. SR and spO2 98%. Will continue to monitor.
[2019-05-01] MEDS: Cefepime 1gm/D5W 55ml IVPB SCH ×2 (09:51)
--- NOTE | 2019-05-01 10:28 | Diagnostic Imaging Report ---
EXAM: XR Chest, 2 Views CLINICAL HISTORY: PLEFF TECHNIQUE: Frontal and lateral views of the chest. COMPARISON: Compared with CT chest 04 28 19 and chest x-ray 04 24 19 FINDINGS: Lungs: Interstitial prominence. Right lung base atelectasis consolidation. Pleural space: Small right pleural effusion. Similar to prior CT. No pneumothorax. Heart: Cardiomegaly. Mediastinum: Unremarkable. Bones joints: Degenerative changes of the spine. Soft tissues: Right axillary surgical clips. IMPRESSION: 1. Interstitial prominence. Right lung base atelectasis consolidation. Similar to prior CT. 2. Small right pleural effusion. Similar to prior CT.
--- NOTE | 2019-05-01 11:31 | NUR ---
NURSE NOTES: pt refused insulin and is aware BG is 134. Insulin not given. Will continue to monitor.
[2019-05-01 12:00] VITALS: BP 123/63
--- NOTE | 2019-05-01 14:32 | NUR ---
NURSE NOTES: Pt transferred to tele in stable condition. Report given to SAGE Hoyt. Tele box and pt belongings remains with pt. medications given to SAGE Hoyt.
[2019-05-01] MEDS ORDERED: NS 275ml ONE (15:15)
[2019-05-01] MEDS ORDERED: Albuterol ud Inhalation HHN PRN (15:30)
[2019-05-01] MEDS ORDERED: HYDROcodone/Acetamin 10/325 tab ORAL PRN (15:30)
[2019-05-01] MEDS ORDERED: HYDROcodone/Acetamin 5/325 tab ORAL PRN (15:30)
[2019-05-01 16:00] VITALS: BP 139/66
--- NOTE | 2019-05-01 16:00 | Progress Note ---
DATE: 05/01/2019 CARDIOLOGY PROGRESS NOTE SUBJECTIVE: The patient feels better, at baseline function with regard to shortness of breath. OBJECTIVE: VITAL SIGNS: Blood pressure 118/65, pulse 72, respiratory rate 18. Monitored rhythm sinus. No Kussmaul sign. LUNGS: Diminished breath sounds. HEART: Regular rhythm and rate. Normal S1, S2 with no rub. ABDOMEN: Soft. EXTREMITIES: Trace edema. LABORATORY DATA: Sodium 140, potassium 3.8, bicarb 28, BUN 47, creatinine 2.8. IMPRESSION: 1. Pericardial effusion, no tamponade. 2. Volume overload due to chronic kidney disease. 3. Acute on chronic diastolic congestive heart failure. 4. Hypertensive heart disease. 5. Pleural effusion. PLAN: Consider thoracentesis, poorly maintenance dose diuretic upon discharge, no current indication for pericardiocentesis. Discharge planning per primary care physician. Barrington Marsh M.D. DR: Lucio JOB#: [id number] CC:
--- NOTE | 2019-05-01 19:20 | NUR ---
HAND-OFF: Report given to SAGE Calhoun. Pt. in stable condition.
--- NOTE | 2019-05-01 19:35 | NUR ---
NURSE NOTES: Pt received from SAGE Hoyt alert and oriented x4 with no acute s/s of distress noted. IV site asymptomatic and patent, L hand 24g, saline lock. Bed in lowest position, bed alarm on. Call light and belongings within reach.
[2019-05-01 20:00] VITALS: BP 135/65
[2019-05-01] MEDS ORDERED: Lisinopril 20mg tab ORAL SCH ×2 (21:00)
[2019-05-02] VITALS: BP 137/66
[2019-05-02 04:00] VITALS: BP 135/64
[2019-05-02] MEDS: NovoLOG Insulin Flexpen SUBQ SCH (05:29)
--- NOTE | 2019-05-02 07:15 | NUR ---
HAND-OFF: Report given to SAGE Banks.
--- NOTE | 2019-05-02 07:59 | NUR ---
NURSE NOTES: Report received from SAGE Calhoun. Pt is lying comfortably in semi-fowlers with no signs of distress. Patient is A+Ox4, denies pain/SOB. Respirations are even and unlabored on room air. Bed is at lowest position, brakes engaged, siderails x3, bed alarm on, and call light within reach. Pt is in stable condition; will continue to monitor.
[2019-05-02 08:00] VITALS: BP 148/67
[2019-05-02 08:17] LABS: ANION GAP 8 mmol/L (5-15); BLOOD UREA NITROGEN 45 mg/dL (7-18); CALCIUM 9.5 MG/DL (8.5-10.1); CARBON DIOXIDE 27 MMOL/L (21-32); CHLORIDE 104 MMOL/L (98-107); CREATININE 2.5 MG/DL (0.55-1.30); POTASSIUM 4.1 MMOL/L (3.5-5.1); SODIUM 139 MMOL/L (136-145)
--- NOTE | 2019-05-02 08:23 | General Progress Note ---
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 PLAN care noted repeat imaging noted inadequate effusions for thoracentesis renal and cards discussed appears better oxygen follow up exam keep negative dc planning for change impression, plan, and exam edited and reviewed in detail care discussed with RN Subjective Allergies: Coded Allergies: PENICILLINS (Verified Allergy, Unknown, 02/08/11) Uncoded Allergies: TAPE (Allergy, Unknown, 03/31/17) Subjective care plan cardiology noted; no significant pleural effusions off lasix no tamponade CXR noted Objective Last 24 Hour Vital Signs Date Time Temp Pulse Resp B/P (MAP) Pulse Ox O2 Delivery O2 Flow Rate FiO2 05/02/19 08:00 98.1 69 18 148/67 (94) 97 05/02/19 04:00 64 05/02/19 04:00 98.4 73 18 135/64 (87) 99 05/02/19 00:00 98.6 72 18 137/66 (89) 99 05/02/19 00:00 64 05/01/19 21:58 135/68 05/01/19 20:44 76 20 95 Nasal Cannula 2.0 28 05/01/19 20:44 95 Nasal Cannula 2.0 28 05/01/19 20:00 98.4 70 18 135/65 (88) 100 05/01/19 20:00 Nasal Cannula 2.0 Nasal Cannula 2.0 05/01/19 20:00 61 05/01/19 17:53 Nasal Cannula 2.0 Nasal Cannula 2.0 05/01/19 16:00 98.6 73 18 139/66 (90) 97 05/01/19 16:00 Nasal Cannula 2.0 Nasal Cannula 2.0 05/01/19 16:00 77 05/01/19 12:00 Nasal Cannula 2.0 Nasal Cannula 2.0 05/01/19 12:00 98.6 66 20 123/63 (83) 99 05/01/19 12:00 66 05/01/19 12:00 2.0 05/01/19 08:28 72 118/65 05/01/19 08:27 118/65 Intake and Output 05/01/19 05/02/19 19:00 07:00 Intake Total 810.0 ml 200 ml Output Total 700 ml Balance 110.0 ml 200 ml Intake Oral 480 ml 200 ml IV Total 330.0 ml Output Urine Total 700 ml # Voids 1 3 # Bowel Movements 8 2 Laboratory Tests 05/02/19 06:49: Sodium Level 139, Potassium Level 4.1, Chloride Level 104, Carbon Dioxide Level 27, Anion Gap 8, Blood Urea Nitrogen 45H, Creatinine 2.5H, Estimat Glomerular Filtration Rate 19.3, Glucose Level 94, Calcium Level 9.5, Random Vancomycin Level [Pending] Height (Feet): 5 Height (Inches): 2.00 Weight (Pounds): 176 Objective WDWN NAD reduced breath sounds bilaterally without rhonchi or wheeze [id number] without MRG NABS nontender no HSM no CC mild edema remaining nonfocal Sanchez Kwong MD May 02, 2019 08:23
[2019-05-02 08:38] VITALS: BP 148/67
[2019-05-02] MEDS ORDERED: Cefepime HCl 1 GM in D5W 55 ML IVPB SCH (09:00)
[2019-05-02] MEDS ORDERED: Paricalcitol 1mcg cap ORAL SCH (09:00)
[2019-05-02] MEDS ORDERED: Azithromycin 250mg tab ORAL SCH (09:00)
--- NOTE | 2019-05-02 09:37 | NUR ---
NURSE NOTES: Spoke with Dr. Kwong who is discharging patient. He said to continue home meds that he continued in hospital. He said the only antibiotic the patient will be on at home is Ceftin. He is also adding Lisinopril and Norvasc. He included a prescription in the chart for the patient for these three new medications.
--- NOTE | 2019-05-02 09:51 | NUR ---
DISCHARGE PLANNING FAXED CLINICALS TO [facility] T: [phone] F: [phone] PATIENT HAS BEEN REFERRED TO HOME HEALTH AND CAN DISCHARGE HOME AT ANY TIME
--- NOTE | 2019-05-02 11:50 | NUR ---
NURSE NOTES: Prescription given to patient and patient signed. Discharge instructions given and explained to patient and her son. Patient had no questions. She said she understands her discharge information. 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 All discharge paperwork signed and sent home with patient. IV, wristband, and bus monitor removed. Pt is in stable condition, no SOB/pain noted. Patient discharged safely from floor via wheelchair to private vehicle with son at her side.
--- NOTE | 2019-05-03 11:59 | Discharge Summary ---
Discharge Summary Discharge Summary _ DATE OF ADMISSION: 04/28/2019 DATE OF DISCHARGE: 05/10/2019 DISCHARGED BY: Dr. Kwong REASON FOR ADMISSION: 68 years old female with past medical history of hypertension, asthma, breast cancer , status post right-sided mastectomy, chronic kidney disease, diabetes mellitus, presented to emergency department for evaluation due to cough, shortness of breath and fatigue. Patient was seen in emergency department 3 days ago and complained of persistent cough and feeling sick for several days after receiving a flu vaccine. At that time patient was diagnosed with pneumonia and was discharged on azithromycin, which she was compliant compliant with. Patient reported worsening cough , chills, but denies fever. She noted exertional dyspnea and lightheadedness with ambulation. Patient also reported worsening fatigue. Upon evaluation vital signs were stable. Laboratory work-up revealed no leukocytosis , hemoglobin 10.4, hematocrit 31.5, platelet count 104. Stable electrolytes. BUN 45, creatinine 2.8. GFR 16.9. Glucose 121. Lactic acid 0.7 . AST 27, ALT 22. Troponin negative , pro BNP 1242. Albumin 3.5. ABG were stable on room air. EKG revealed sinus rhythm, no acute ischemic changes. CT of the chest revealed bilateral , right greater than left , pleural effusion. Questionable diffuse pulmonary groundglass opacity, could be due to motion artifact or could be on the basis of pulmonary edema. 12 mm spiculated right lower lobe lung nodule also evident on prior study and appeared to be unchanged. Large pericardial effusion, new since 11/[address] Evidence of old granulomatous disease. Evidence of prior right mastectomy, no dissection and implant placement. Prominent , but not frankly enlarged mediastinal lymph nodes, nonspecific. Hepatic surface nodularity suggestive of cirrhosis, previously described. Splenomegaly, also previously described. 2.1 cm left adrenal mass unchanged since previous exam. Patient subsequently admitted to telemetry floor for further management. CONSULTANTS: cardiology Dr. Marsh heavy equipment plumbing supervisor desi Cal[facility] COURSE: Patient admitted to telemetry floor. Patient started on empiric antibiotic. 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 revealed preserved ejection fraction, with no evidence of left ventricular hypertrophy. Moderate to large pericardial effusion. Right ventricular systolic pressure of 39 consistent with mild pulmonary hypertension. Patient was closely monitored on telemetry. Per tank setter, etiology of pericardial effusion most likely was uremic or due to volume overload. Patient started on diuresis with close monitoring of volumes and cardiorenal parameters. Anti-failure medications were titrated. No need for pericardiocentesis at this time , as per tank setter. Patient was closely monitored on telemetry. Diuresis continued. Patient was taken off nonsteroidal anti-inflammatory medications, she was on prior. N Barrel Raiser Helper also recommended cautious use of LIZ inhibitor. Again, no urgent indication for pericardiocentesis. Drive In Teller closely followed. Fluid overload was due to congestive heart failure. Patient also had low albumin. Urine studies were done. Drive In Teller advised to continue LIZ inhibitor or angiotensin receptor gibson as long as the potassium remains stable. Per heavy equipment plumbing supervisor , pericardial effusion was not uremic, possibly malignant versus due to infection or fluid overload. Creatinine from 2.8 down to 2.5. Electrolytes remained stable. Supplemental oxygen and pulmonary toilet provided as needed. Blood sugar was managed with sliding scale of insulin. Patient had evidence of pleural effusion, but not sufficient for safe thoracentesis Pain management was addressed as needed. Supportive care provided. Bowel regimen instituted. Patient clinically improve and was stable for discharge home with home health services. Patient was advised to stay away from nonsteroidal anti-inflammatory medication. FINAL DIAGNOSES: Large pericardial effusion without evidence of tamponade Fluid overload Acute on chronic diastolic congestive heart failure with fluid overload Acute on chronic kidney disease Bilateral pleural effusion Hypertensive heart disease Diabetes mellitus Asthma History of breast cancer, status post right mastectomy DISCHARGE MEDICATIONS: See Medication Reconciliation list. DISCHARGE INSTRUCTIONS: Patient was discharged home with home health services. Follow up with primary care provider in one week. I have been assigned to dictate discharge summary for this account. I was not involved in the patient's management. Ce Jorge NP May 03, 2019 11:59
--- NOTE | 2019-05-04 10:52 | Cardiology Report ---
APPROVED REPORT EXAM: Two-dimensional and M-mode echocardiogram with Doppler and color Doppler. INDICATION PERICARDIAL EFFUSION M-Mode DIMENSIONS IVSd1.8 (0.7-1.1cm)Left Atrium (MM)4.2 (1.6-4.0cm) LVDd5.0 (3.5-5.6cm)Aortic Root1.6 (2.0-3.7cm) PWd1.7 (0.7-1.1cm)Aortic Cusp Exc.1.5 (1.5-2.0cm) IVSs2.6 cm LVDs2.4 (2.5-4.0cm) PWs1.2 cm Technically difficult study due to poor acoustical windows. Normal left ventricular chamber size, systolic function and wall motion to extent visualized. Left ventricular ejection fraction estimated to be 55-60%. No evidence of left ventricular hypertrophy . Moderate to large circumferential pericardial effusion present . All other cardiac chamber sizes are within normal limits. Focal aortic valve sclerosis with adequate cusp excursion. Thickened mitral valve leaflets with normal excursion. Mitral annulus and aortic root calcification. Normal pulmonic valve structure. Normal tricuspid valve structure. IVC at normal size without physiologic collapse. A color flow and spectral Doppler study was performed and revealed: No aortic regurgitation. Mild mitral regurgitation. Mitral diastolic velocities suggest reduced left ventricular relaxation c/w mild LV diastolic dysfunction (Grade I ) Trace tricuspid regurgitation . Tricuspid systolic velocities suggests peak right ventricular systolic pressure of39 mmHg,consistent with mild pulmonary hypertension. aerial survey technician informed DR box and RN on 04-28-19.
== END 2019-05-02 11:50 | disposition home health service (06) | DRG 291 ==
LOC: EMR 23:26 → EDBEDREQ 04-28 02:04 → 2W 04-28 02:13 → EDBEDREQ 04-28 02:16 → 2E 05-01 14:15
DX: I13.0 Hypertensive heart and chronic kidney disease with heart failure and stage 1 through stage 4 chronic kidney disease, or unspecified chronic kidney disease (principal); I50.33 Acute on chronic diastolic (congestive) heart failure; I31.3 Pericardial effusion (noninflammatory); N17.9 Acute kidney failure, unspecified; N18.4 Chronic kidney disease, stage 4 (severe); E11.22 Type 2 diabetes mellitus with diabetic chronic kidney disease; Z85.3 Personal history of malignant neoplasm of breast; Z90.11 Acquired absence of right breast and nipple; J45.909 Unspecified asthma, uncomplicated; Z96.653 Presence of artificial knee joint, bilateral; Z88.0 Allergy status to penicillin; Z87.891 Personal history of nicotine dependence; E78.5 Hyperlipidemia, unspecified
CPT/HCPCS: 36415; 36600; 71046; 71250; 80048; 80053; 80202; 81001; 82043; 82044; 82570; 82803; 82962; 83605; 83880; 84484; 84550; 85025; 85651; 86039; 86140; 86710; 87040; 93005; 93306; 94664; 96361; 96365; 96366; 96375; 99291; J1815; J2405; J7030

== ENCOUNTER 2019-06-10 18:45 | Inpatient (IN) | payer MEDICARE, OTHER ==
[~2019-06-10] VITALS: Ht 157.5 cm; Wt 74.4 kg
[~2019-06-10 18:45] MED LIST changes: +NORVASC10 MG ORAL
[2019-06-10] MEDS ORDERED: VENTOLIN HFA18 GM INH (18:54)
[2019-06-10] MEDS ORDERED: PROTONIX20 MG ORAL (18:54)
[2019-06-10] MEDS ORDERED: TRADJENTA5 MG PO (18:54)
[2019-06-10] MEDS ORDERED: ALLOPURINOL100 M1 ORAL (18:54)
--- NOTE | 2019-06-10 19:00 | NUR ---
ED Nurse Note: patient ambulated from home to ed c/o sob x3 days. patient ao4 nad vss. rr 24 spo2 95%; audilble wheezes noted . family at bedside. pt hx of right breast mastectomy. pateint resting in bed with no signs of acute distress.motinor attached. side rails raised; bed locked at lowest position.
--- NOTE | 2019-06-10 19:06 | Emergency Room Report ---
History of Present Illness General Chief Complaint: Dyspnea/Respdistress Source: Patient Present Illness HPI 68 year old female hypertension, asthma, breast cancer , status post right- sided mastectomy, chronic kidney disease, diabetes mellitus, pericardial effusion, presents with dyspnea x3 days, no aggravating or relieving factors severity is moderate, constant no cough no sputum production no fevers no chills , patient does feel short of breath no chest pain, patient had a recent hospitalization was found to have a pericardial effusion, pleural effusion and had diuresis patient presents for evaluation Allergies: Coded Allergies: PENICILLINS (Verified Allergy, Unknown, 02/08/11) Uncoded Allergies: TAPE (Allergy, Unknown, 03/31/17) Patient History Past Medical History: see triage record Reviewed Nursing Documentation: PMH: Agreed; PSxH: Agreed Nursing Documentation-PMH Hx Cardiac Problems: Yes - CHF Hx Hypertension: Yes Hx Asthma: Yes Hx Diabetes: Yes Hx Cancer: Yes Hx Gastrointestinal Problems: Yes Hx Dialysis: No - Kidney disease ("35% function") Hx Neurological Problems: No Review of Systems All Other Systems: negative except mentioned in HPI Physical Exam Vital Signs Date Time Temp Pulse Resp B/P (MAP) Pulse Ox O2 Delivery O2 Flow Rate FiO2 06/10/19 18:48 98.2 88 19 153/72 (99) 95 Room Air Sp02 EP Interpretation: reviewed, normal General Appearance: well appearing, no apparent distress, alert Head: normocephalic, atraumatic Eyes: bilateral eye PERRL, bilateral eye EOMI ENT: uvula midline, moist mucus membranes Neck: supple, thyroid normal, supple/symm/no masses Respiratory: no respiratory distress, no retraction, no accessory muscle use, decreased breath sounds, wheezing - Bilaterally Cardiovascular #1: normal peripheral pulses, regular rate, rhythm, no edema, no gallop, no murmur Gastrointestinal: non tender, soft, no guarding, no rebound Musculoskeletal: normal inspection Neurologic: alert, oriented x3 Psychiatric: mood/affect normal Skin: no rash, warm/dry Medical Decision Making Diagnostic Impression: Primary Impression: Dyspnea Qualified Codes: R06.00 - Dyspnea, unspecified Additional Impressions: COPD exacerbation CHF exacerbation Qualified Codes: I50.9 - Heart failure, unspecified ER Course 68-year-old female presents with shortness of breath differential diagnosis includes ACS, pneumonia, pleural effusion, pericardial effusion, Patient with recent hospitalization, will start broad spectrum abx, patient also with wheezing will start breathing tx. Patient with possible mixed picture of COPD versus CHF exacerbation, will start Lasix, duo nebs as well as steroids Patient improved, patient will be admitted to telemetry under Dr. Kwong 0822pm Point of care ultrasound: shows pericardial effusion without e/o tamponade. Laboratory Tests Test 06/10/19 19:18 White Blood Count 7.1 K/UL (4.8-10.8) Red Blood Count 3.54 M/UL (4.20-5.40) L Hemoglobin 10.6 G/DL (12.0-16.0) L Hematocrit 31.3 % (37.0-47.0) L Mean Corpuscular Volume 88 FL (80-99) Mean Corpuscular Hemoglobin 30.1 PG (27.0-31.0) Mean Corpuscular Hemoglobin Concent 34.0 G/DL (32.0-36.0) Red Cell Distribution Width 10.4 % (11.6-14.8) L Platelet Count 136 K/UL (150-450) L Mean Platelet Volume 6.4 FL (6.5-10.1) L Neutrophils (%) (Auto) 74.2 % (45.0-75.0) Lymphocytes (%) (Auto) 16.9 % (20.0-45.0) L Monocytes (%) (Auto) 7.5 % (1.0-10.0) Eosinophils (%) (Auto) 0.9 % (0.0-3.0) Basophils (%) (Auto) 0.5 % (0.0-2.0) Prothrombin Time 10.5 SEC (9.30-11.50) Prothrombin Time INR 1.0 (0.9-1.1) PTT 30 SEC (23-33) Sodium Level 140 MMOL/L (136-145) Potassium Level 5.2 MMOL/L (3.5-5.1) H Chloride Level 106 MMOL/L (98-107) Carbon Dioxide Level 21 MMOL/L (21-32) Anion Gap 13 mmol/L (5-15) Blood Urea Nitrogen 54 mg/dL (7-18) H Creatinine 3.3 MG/DL (0.55-1.30) H Estimate Glomerular Filtration Rate 13.9 mL/min (>60) Glucose Level 118 MG/DL (74-106) H Calcium Level 8.8 MG/DL (8.5-10.1) Total Bilirubin 0.5 MG/DL (0.2-1.0) Aspartate Amino Transferase (AST) 21 U/L (15-37) Alanine Aminotransferase (ALT) 19 U/L (12-78) Alkaline Phosphatase 78 U/L (46-116) Troponin I 0.000 ng/mL (0.000-0.056) Pro-B-Type Natriuretic Peptide 1565 pg/mL (0-125) H Total Protein 7.8 G/DL (6.4-8.2) Albumin 3.2 G/DL (3.4-5.0) L Globulin 4.6 g/dL Albumin/Globulin Ratio 0.7 (1.0-2.7) L Lipase 104 U/L (73-393) EKG Diagnostic Results EKG Time: 18:56 EP Interpretation: NSR, rate 74, QTc 404, no acute ST elevations normal axis Rhythm Strip Diag. Results Rhythm Strip Time: 19:06 EP Interpretation: yes Rate: 77 Rhythm: NSR, no PVC's, no ectopy Chest X-Ray Diagnostic Results Chest X-Ray Diagnostic Results : Chest X-Ray Ordered: Yes # of Views/Limited/Complete: 1 View Indication: Shortness of Breath EP Interpretation: Yes Interpretation: other - left pleural effusion, enlarged heart Impression: Other - left pleural effusion, enlarged heart Electronically Signed by: Jabier Wright MD Last Vital Signs Date Time Temp Pulse Resp B/P (MAP) Pulse Ox O2 Delivery O2 Flow Rate FiO2 06/10/19 18:48 98.2 88 19 153/72 (99) 95 Room Air Disposition: ADMITTED INPATIENT Condition: Stable Referrals: NON PHYSICIAN (PCP) Jabier Wright MD Jun 10, 2019 19:06
[2019-06-10] MEDS ORDERED: Cefepime HCl 2 GM in D5W 55 ML IVPB ONE (19:15)
[2019-06-10] MEDS ORDERED: Vancomycin 1.5 GM in NS 275 ML IVPB ONE (19:15)
[2019-06-10] MEDS ORDERED: Vancomycin 1.5gm/NS Premix 275 ML IVPB SCH (19:15)
[2019-06-10] MEDS ORDERED: Solu-MEDROL 125mg Inj IVP ONE (19:15)
--- NOTE | 2019-06-10 19:15 | NUR ---
ED Nurse Note: iv access established; 20g left ac. blood and urine collected; sent down to lab.
[2019-06-10 19:27] VITALS: BP 153/72
[2019-06-10 19:28] LABS: BASOPHILS % (AUTO) 0.5 % (0.0-2.0); EOSINOPHILS % (AUTO) 0.9 % (0.0-3.0); HEMATOCRIT 31.3 % (37.0-47.0); HEMOGLOBIN 10.6 G/DL (12.0-16.0); LYMPHOCYTES % (AUTO) 16.9 % (20.0-45.0); MEAN CORPUSCULAR VOLUME 88 FL (80-99); MONOCYTES % (AUTO) 7.5 % (1.0-10.0); NEUTROPHILS % (AUTO) 74.2 % (45.0-75.0); PLATELET COUNT 136 K/UL (150-450); RED BLOOD COUNT 3.54 M/UL (4.20-5.40); RED CELL DISTRIBUTION WIDTH 10.4 % (11.6-14.8); WHITE BLOOD COUNT 7.1 K/UL (4.8-10.8)
[2019-06-10] MEDS: Ipratropium 0.02% Inh Soln 2.5ml UD HHN SCH ×3 (19:31→19:53)
[2019-06-10] MEDS: Albuterol ud Inhalation HHN SCH ×3 (19:32→19:53)
--- NOTE | 2019-06-10 19:34 | NUR ---
ED Nurse Note: pt at bedside for breathing tx. pt tolerated well.
--- NOTE | 2019-06-10 19:40 | Diagnostic Imaging Report ---
EXAM: XR Chest, 1 View CLINICAL HISTORY: SOB TECHNIQUE: Frontal view of the chest. COMPARISON: Chest x-ray 05/09/2019 FINDINGS: Lungs: No grossly evident consolidation however the left base is largely obscured by the heart. No overt edema. Pleural space: No pneumothorax or large pleural effusion. Heart: Severe cardiomegaly. Mediastinum: Unremarkable. Bones/joints: Unremarkable. Soft tissues: Surgical clips in the right axilla. IMPRESSION: Severe cardiomegaly.
[2019-06-10 19:44] LABS: ANION GAP 13 mmol/L (5-15); BLOOD UREA NITROGEN 54 mg/dL (7-18); CALCIUM 8.8 MG/DL (8.5-10.1); CARBON DIOXIDE 21 MMOL/L (21-32); CHLORIDE 106 MMOL/L (98-107); CREATININE 3.3 MG/DL (0.55-1.30); POTASSIUM 5.2 MMOL/L (3.5-5.1); SODIUM 140 MMOL/L (136-145)
--- NOTE | 2019-06-10 19:45 | NUR ---
ED Nurse Note: belongings list completed with patient. discussed plan of care with patient; pt aware of pending admission. upon assessment; skin intact.
[2019-06-10 19:56] LABS: ALANINE AMINOTRANSFERASE 19 U/L (12-78); ALBUMIN 3.2 G/DL (3.4-5.0); ALBUMIN/GLOBULIN RATIO 0.7 (1.0-2.7); ALKALINE PHOSPHATASE 78 U/L (46-116); ASPARTATE AMINO TRANSFERASE 21 U/L (15-37); BILIRUBIN,TOTAL 0.5 MG/DL (0.2-1.0)
[2019-06-10 20:00] VITALS: BP 130/86
--- NOTE | 2019-06-10 20:04 | NUR ---
ED Nurse Note: patient ambulated steady to bathroom. pt back to bed. reattached to monitor; resumed breathing tx and iv abx. provided with warm blankets.
--- NOTE | 2019-06-10 20:35 | NUR ---
TRANSFER TO FLOOR: Patient transferred to tele 219 as ordered, per isauro eli. Report given to bonifacio eli. patient transferred to floor with rn and [facility] via [facility]. iv intact and patent. admission packet, ekg, belongings and belongings list sent with patient.
[2019-06-10 21:45] VITALS: BP 156/61
--- NOTE | 2019-06-10 21:45 | NUR ---
NURSE NOTES: Pt received from ED, transferred to 2nd floor to room 219-2. Pt is alert and oriented x4 on room air. Pt transferred to bed, sitting upright in semi fowlers, bed is locked in lowest position, bed alarm on, patient's sister is at the bedside. Belongings list checked and signed by patient. will continue to monitor pt and contact MD for orders.
[2019-06-10] MEDS ORDERED: HydrALAZINE 25mg tab ORAL PRN (22:15)
--- NOTE | 2019-06-10 22:22 | History & Physical ---
History and Physical History & Physicial History and Physical HPI Patient is a 68 year old womanwith past history of chronic kidney disease, diabetes mellitus, hypertension, asthma, breast cancer ,status post right-sided mastectomy, previous pericardial effusion, admitted with worsening dyspnea x3 days, no aggravating or relieving factors, denies cough or sputum production, no fevers no chills, no chest pain, patient had a recent hospitalization was found to have a pericardial effusion and pleural effusion. ED point of care ultrasound: shows pericardial effusion without e/o tamponade. Allergies: PENICILLINS TAPE Past Medical History: Chronic kidney disease, Diabetes mellitus, Hypertension, Asthma, Breast cancer ,status post right-sided mastectomy, Previous pericardial effusion All Other Systems: negative except mentioned in HPI Physical Exam Vital Signs Noted Date Time Temp Pulse Resp B/P (MAP) Pulse Ox O2 Delivery O2 Flow Rate FiO2 06/10/19 18:48 98.2 88 19 153/72 (99) 95 Room Air General Appearance: well appearing, no apparent distress, alert Head: normocephalic, atraumatic Eyes: bilateral eye PERRL, bilateral eye EOMI ENT: uvula midline, moist mucus membranes Neck: supple, no LN, no masses Respiratory: no respiratory distress, no retraction, no accessory muscle use, decreased breath sounds, wheezing - bilaterally Cardiovascular: normal peripheral pulses, regular rate, rhythm, HS1, HS2 normal no gallop, no murmur Gastrointestinal: non tender, soft, no guarding, no rebound Musculoskeletal: normal inspection Neurologic: alert, oriented x3 Skin: no rash, warm/dry, no edema Impression: Primary Impression: COPD/Asthma exacerbation CHF exacerbation Pericardial effusion Severe cardiomegaly on CXR Chronic kidney disease Diabetes mellitus Hypertension Breast cancer ,status post right-sided mastectomy Anemia Plan - Solumedrol - Duonebs Q4 - O2 PRN - Doxycycline - IV Lasix - Monitor labs - PPX - LE dupplex - VQ scan - 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 - TOOTH CUTTER CONTACT WHEEL Medications - ISS - Cardiology Consultation - PRN BP meds Laboratory Tests Test 06/10/19 19:18 White Blood Count 7.1 K/UL (4.8-10.8) Red Blood Count 3.54 M/UL (4.20-5.40) L Hemoglobin 10.6 G/DL (12.0-16.0) L Hematocrit 31.3 % (37.0-47.0) L Mean Corpuscular Volume 88 FL (80-99) Mean Corpuscular Hemoglobin 30.1 PG (27.0-31.0) Mean Corpuscular Hemoglobin Concent 34.0 G/DL (32.0-36.0) Red Cell Distribution Width 10.4 % (11.6-14.8) L Platelet Count 136 K/UL (150-450) L Mean Platelet Volume 6.4 FL (6.5-10.1) L Neutrophils (%) (Auto) 74.2 % (45.0-75.0) Lymphocytes (%) (Auto) 16.9 % (20.0-45.0) L Monocytes (%) (Auto) 7.5 % (1.0-10.0) Eosinophils (%) (Auto) 0.9 % (0.0-3.0) Basophils (%) (Auto) 0.5 % (0.0-2.0) Prothrombin Time 10.5 SEC (9.30-11.50) Prothrombin Time INR 1.0 (0.9-1.1) PTT 30 SEC (23-33) Sodium Level 140 MMOL/L (136-145) Potassium Level 5.2 MMOL/L (3.5-5.1) H Chloride Level 106 MMOL/L (98-107) Carbon Dioxide Level 21 MMOL/L (21-32) Anion Gap 13 mmol/L (5-15) Blood Urea Nitrogen 54 mg/dL (7-18) H Creatinine 3.3 MG/DL (0.55-1.30) H Estimate Glomerular Filtration Rate 13.9 mL/min (>60) Glucose Level 118 MG/DL (74-106) H Calcium Level 8.8 MG/DL (8.5-10.1) Total Bilirubin 0.5 MG/DL (0.2-1.0) Aspartate Amino Transferase (AST) 21 U/L (15-37) Alanine Aminotransferase (ALT) 19 U/L (12-78) Alkaline Phosphatase 78 U/L (46-116) Troponin I 0.000 ng/mL (0.000-0.056) Pro-B-Type Natriuretic Peptide 1565 pg/mL (0-125) H Total Protein 7.8 G/DL (6.4-8.2) Albumin 3.2 G/DL (3.4-5.0) L Globulin 4.6 g/dL Albumin/Globulin Ratio 0.7 (1.0-2.7) L Lipase 104 U/L (73-393) EKG: NSR, rate 74, QTc 404, no acute ST elevations normal axis Chest X-Ray: suggestion of left pleural effusion, severe cardiomegaly Barrington Morris MD Jun 10, 2019 22:22
[2019-06-10] MEDS: Albuterol/Ipratropium 3ml neb HHN SCH (23:14)
[2019-06-11] VITALS: BP 156/61
[2019-06-11] MEDS: Albuterol/Ipratropium 3ml neb HHN SCH ×6 (02:44→23:33)
[2019-06-11] MEDS: Solu-MEDROL 40mg Inj IVP SCH ×3 (05:47→21:53)
[2019-06-11] MEDS: NovoLOG Insulin Flexpen SUBQ SCH ×4 (06:41→20:33)
[2019-06-11 08:00] VITALS: BP 127/52
--- NOTE | 2019-06-11 08:16 | NUR ---
HAND-OFF: Report given to SAGE Cabral.
--- NOTE | 2019-06-11 08:26 | NUR ---
NURSE NOTES: pt. in bed on the ph. Pt alert and talking. Pt on site monitor no signs of cardiac distress at this time. Pt bed is locked and in lowest position. Call light within reach. Will continue to monitor pt and follow plans of care.
[2019-06-11] MEDS: Lisinopril 20mg tab ORAL SCH (09:00)
[2019-06-11] MEDS: Allopurinol 100mg Tab ORAL SCH (09:00)
[2019-06-11] MEDS: Heparin 5000 units/ml inj SUBQ SCH ×2 (09:00→20:33)
[2019-06-11] MEDS: Doxycycline Monohydrate 100mg ORAL SCH ×2 (09:29→20:32)
--- NOTE | 2019-06-11 09:35 | Diagnostic Imaging Report ---
EXAM: US Duplex Bilateral Lower Extremities Veins CLINICAL HISTORY: DVT TECHNIQUE: Real-time duplex ultrasound scan of the bilateral lower extremity veins integrating B-mode two-dimensional vascular structure, Doppler spectral analysis, color flow Doppler imaging and compression. COMPARISON: No relevant prior studies available. FINDINGS: Right deep veins: Unremarkable. No DVT in the right common femoral, femoral, proximal deep femoral or popliteal veins. The veins demonstrate normal color flow, are normally compressible, with normal phasic flow and/or augmentation response. Right superficial veins: Unremarkable. No thrombus in the visualized right great saphenous vein. Left deep veins: Unremarkable. No DVT in the left common femoral, femoral, proximal deep femoral or popliteal veins. The veins demonstrate normal color flow, are normally compressible, with normal phasic flow and/or augmentation response. Left superficial veins: Unremarkable. No thrombus in the visualized left great saphenous vein. Soft tissues: No acute findings. No popliteal cyst. IMPRESSION: Normal bilateral lower extremity duplex venous ultrasound.
[2019-06-11 12:11] VITALS: BP 137/62
[2019-06-11 13:35] LABS: HEMATOCRIT 29.2 % (37.0-47.0); HEMOGLOBIN 9.3 G/DL (12.0-16.0); MEAN CORPUSCULAR VOLUME 91 FL (80-99); PLATELET COUNT 125 K/UL (150-450); RED BLOOD COUNT 3.19 M/UL (4.20-5.40); RED CELL DISTRIBUTION WIDTH 11.6 % (11.6-14.8); WHITE BLOOD COUNT 7.2 K/UL (4.8-10.8)
[2019-06-11 13:43] LABS: ANION GAP 10 mmol/L (5-15); BLOOD UREA NITROGEN 59 mg/dL (7-18); CALCIUM 8.3 MG/DL (8.5-10.1); CARBON DIOXIDE 23 MMOL/L (21-32); CHLORIDE 104 MMOL/L (98-107); CREATININE 3.5 MG/DL (0.55-1.30); POTASSIUM 4.5 MMOL/L (3.5-5.1); SODIUM 137 MMOL/L (136-145)
--- NOTE | 2019-06-11 13:45 | NUR ---
NURSE NOTES: NOTIFIED, DR. Morris about 2d echo results.
--- NOTE | 2019-06-11 14:13 | Pulmonology Progress Note ---
Assessment/Plan Assessment/Plan Pulmonary Progress Note HPI Patient is a 68 year old woman with past history of chronic kidney disease, diabetes mellitus, hypertension, asthma, breast cancer ,status post right-sided mastectomy, previous pericardial effusion, admitted with worsening dyspnea x3 days, no aggravating or relieving factors, denies cough or sputum production, no fevers no chills, no chest pain, patient had a recent hospitalization was found to have a pericardial effusion and pleural effusion. Less SOB, K improved ED point of care ultrasound: shows pericardial effusion without e/o tamponade. Allergies: PENICILLINS TAPE Past Medical History: Chronic kidney disease, Diabetes mellitus, Hypertension, Asthma, Breast cancer ,status post right-sided mastectomy, Previous pericardial effusion Physical Exam Vital Signs Noted General Appearance: well appearing, no apparent distress, alert Head: normocephalic, atraumatic Eyes: bilateral eye PERRL, bilateral eye EOMI ENT: uvula midline, moist mucus membranes Neck: supple, no LN, no masses Respiratory: no respiratory distress, no retraction, no accessory muscle use, decreased breath sounds, CTAB Cardiovascular: normal peripheral pulses, regular rate, rhythm, HS1, HS2 normal no gallop, no murmur Gastrointestinal: non tender, soft, no guarding, no rebound Musculoskeletal: normal inspection Neurologic: alert, oriented x3 Skin: no rash, warm/dry, no edema Impression: Primary Impression: COPD/Asthma exacerbation CHF exacerbation Pericardial effusion Severe cardiomegaly on CXR Chronic kidney disease Diabetes mellitus Hypertension Breast cancer ,status post right-sided mastectomy Anemia Plan - Solumedrol - Duonebs Q4 - O2 PRN - Doxycycline - IV Lasix - Thoracentesis ordered - Monitor labs - PPX - LE dupplex negative - VQ scan - 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 - 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 - ISS - Cardiology Consultation - PRN BP meds Laboratory Tests Noted Test 06/10/19 19:18 White Blood Count 7.1 K/UL (4.8-10.8) Red Blood Count 3.54 M/UL (4.20-5.40) L Hemoglobin 10.6 G/DL (12.0-16.0) L Hematocrit 31.3 % (37.0-47.0) L Mean Corpuscular Volume 88 FL (80-99) Mean Corpuscular Hemoglobin 30.1 PG (27.0-31.0) Mean Corpuscular Hemoglobin Concent 34.0 G/DL (32.0-36.0) Red Cell Distribution Width 10.4 % (11.6-14.8) L Platelet Count 136 K/UL (150-450) L Mean Platelet Volume 6.4 FL (6.5-10.1) L Neutrophils (%) (Auto) 74.2 % (45.0-75.0) Lymphocytes (%) (Auto) 16.9 % (20.0-45.0) L Monocytes (%) (Auto) 7.5 % (1.0-10.0) Eosinophils (%) (Auto) 0.9 % (0.0-3.0) Basophils (%) (Auto) 0.5 % (0.0-2.0) Prothrombin Time 10.5 SEC (9.30-11.50) Prothrombin Time INR 1.0 (0.9-1.1) PTT 30 SEC (23-33) Sodium Level 140 MMOL/L (136-145) Potassium Level 5.2 MMOL/L (3.5-5.1) H Chloride Level 106 MMOL/L (98-107) Carbon Dioxide Level 21 MMOL/L (21-32) Anion Gap 13 mmol/L (5-15) Blood Urea Nitrogen 54 mg/dL (7-18) H Creatinine 3.3 MG/DL (0.55-1.30) H Estimate Glomerular Filtration Rate 13.9 mL/min (>60) Glucose Level 118 MG/DL (74-106) H Calcium Level 8.8 MG/DL (8.5-10.1) Total Bilirubin 0.5 MG/DL (0.2-1.0) Aspartate Amino Transferase (AST) 21 U/L (15-37) Alanine Aminotransferase (ALT) 19 U/L (12-78) Alkaline Phosphatase 78 U/L (46-116) Troponin I 0.000 ng/mL (0.000-0.056) Pro-B-Type Natriuretic Peptide 1565 pg/mL (0-125) H Total Protein 7.8 G/DL (6.4-8.2) Albumin 3.2 G/DL (3.4-5.0) L Globulin 4.6 g/dL Albumin/Globulin Ratio 0.7 (1.0-2.7) L Lipase 104 U/L (73-393) EKG: NSR, rate 74, QTc 404, no acute ST elevations normal axis Chest X-Ray: suggestion of left pleural effusion, severe cardiomegaly Subjective ROS Limited/Unobtainable: No Allergies: Coded Allergies: PENICILLINS (Verified Allergy, Unknown, 02/08/11) Uncoded Allergies: TAPE (Allergy, Unknown, 03/31/17) Objective Last 24 Hour Vital Signs Date Time Temp Pulse Resp B/P (MAP) Pulse Ox O2 Delivery O2 Flow Rate FiO2 06/11/19 12:11 97.0 85 18 137/62 (87) 96 06/11/19 11:20 88 20 97 Room Air 21 90 20 92 06/11/19 09:00 127/52 06/11/19 09:00 94 127/52 06/11/19 08:00 87 06/11/19 08:00 97.2 94 20 127/52 (77) 100 06/11/19 07:25 87 20 98 Room Air 21 84 20 94 06/11/19 04:00 75 06/11/19 02:45 83 20 97 Room Air 21 78 20 92 06/11/19 00:00 75 06/11/19 00:00 97.4 87 22 156/61 (92) 92 06/10/19 23:14 75 20 100 Room Air 21 72 20 95 06/10/19 22:56 Room Air Room Air 06/10/19 21:45 97.4 87 22 156/61 (92) 92 06/10/19 20:58 73 06/10/19 20:35 98.2 70 14 130/86 99 Room Air 06/10/19 20:08 78 18 100 06/10/19 20:00 98.2 70 14 130/86 99 Room Air 06/10/19 19:52 80 16 100 06/10/19 19:39 69 18 100 06/10/19 19:28 74 24 95 Room Air 06/10/19 19:27 74 24 Room Air 06/10/19 19:27 98.2 74 24 153/72 95 Room Air 06/10/19 19:25 74 24 95 06/10/19 18:48 98.2 88 19 153/72 (99) 95 Room Air Intake and Output 06/10/19 06/11/19 19:00 07:00 Output Total 1 ml Balance -1 ml Output Urine Total 1 ml # Voids 4 Laboratory Tests 06/10/19 19:18: White Blood Count 7.1, Red Blood Count 3.54L, Hemoglobin 10.6L, Hematocrit 31.3L , Mean Corpuscular Volume 88, Mean Corpuscular Hemoglobin 30.1, Mean Corpuscular Hemoglobin Concent 34.0, Red Cell Distribution Width 10.4L, Platelet Count 136L, Mean Platelet Volume 6.4L, Neutrophils (%) (Auto) 74.2, Lymphocytes (%) (Auto) 16.9L, Monocytes (%) (Auto) 7.5, Eosinophils (%) (Auto) 0.9, Basophils (%) (Auto) 0.5, Prothrombin Time 10.5, Prothromb Time International Ratio 1.0, Activated Partial Thromboplast Time 30, Sodium Level 140, Potassium Level 5.2H, Chloride Level 106, Carbon Dioxide Level 21, Anion Gap 13, Blood Urea Nitrogen 54H, Creatinine 3.3H, Estimat Glomerular Filtration Rate 13.9, Glucose Level 118H, Calcium Level 8.8, Total Bilirubin 0.5, Aspartate Amino Transf (AST/SGOT) 21, Alanine Aminotransferase (ALT/SGPT) 19, Alkaline Phosphatase 78, Troponin I 0.000, Pro-B-Type Natriuretic Peptide 1565H , Total Protein 7.8, Albumin 3.2L, Globulin 4.6, Albumin/Globulin Ratio 0.7L, Lipase 104 06/11/19 13:18: White Blood Count 7.2, Red Blood Count 3.19L, Hemoglobin 9.3L, Hematocrit 29.2L , Mean Corpuscular Volume 91, Mean Corpuscular Hemoglobin 29.2, Mean Corpuscular Hemoglobin Concent 32.0, Red Cell Distribution Width 11.6, Platelet Count 125L, Mean Platelet Volume 7.2, Neutrophils (%) (Auto) , Lymphocytes (%) ( Auto) , Monocytes (%) (Auto) , Eosinophils (%) (Auto) , Basophils (%) (Auto) , Sodium Level 137, Potassium Level 4.5, Chloride Level 104, Carbon Dioxide Level 23, Anion Gap 10, Blood Urea Nitrogen 59H, Creatinine 3.5H, Estimat Glomerular Filtration Rate 13.1, Glucose Level 262#H, Calcium Level 8.3L, Differential Total Cells Counted 100, Neutrophils % (Manual) 97H, Lymphocytes % (Manual) 3L, Monocytes % (Manual) 0L, Eosinophils % (Manual) 0, Basophils % (Manual) 0, Band Neutrophils 0, Platelet Estimate DecreasedL, Platelet Morphology Normal, Red Blood Cell Morphology Normal Current Medications Medications (Trade) Dose Ordered Sig/Margarito Route PRN Reason Start Time Stop Time Status Last Admin Dose Admin Acetaminophen (Tylenol) 650 mg Q6H PRN ORAL Mild Pain/Temp > 100.5 06/10/19 22:15 07/10/19 22:14 Albuterol/ Ipratropium (Albuterol/ Ipratropium) 3 ml Q4HRT HHN 06/10/19 23:00 06/15/19 22:59 06/11/19 11:18 Allopurinol (Zyloprim) 100 mg DAILY ORAL 06/11/19 09:00 07/11/19 08:59 06/11/19 09:00 Amlodipine Besylate (Norvasc) 5 mg DAILY ORAL 06/11/19 09:00 07/11/19 08:59 06/11/19 09:00 Atorvastatin Calcium (Lipitor) 10 mg BEDTIME ORAL 06/11/19 21:00 07/11/19 20:59 Dextrose (Dextrose 50%) 25 ml Q30M PRN IV Hypoglycemia 06/10/19 22:15 07/10/19 22:14 Dextrose (Dextrose 50%) 50 ml Q30M PRN IV Hypoglycemia 06/10/19 22:15 07/10/19 22:14 Doxycycline Monohydrate (Doxycycline Monohydrate) 100 mg EVERY 12 HOURS ORAL 06/11/19 09:00 06/18/19 08:59 06/11/19 09:29 Furosemide (Lasix) 20 mg Q12HR@0600,1800 IV 06/11/19 06:00 07/11/19 05:59 06/11/19 05:48 Heparin Sodium (Porcine) (Heparin 5000 units/ml) 5,000 units EVERY 12 HOURS SUBQ 06/11/19 09:00 07/11/19 08:59 06/11/19 09:00 Hydralazine HCl (Apresoline) 25 mg Q6HR PRN ORAL SBP>180 06/10/19 22:15 07/10/19 22:14 Insulin Aspart (NovoLOG) BEFORE MEALS AND HS SUBQ 06/11/19 06:30 12/30/19 06:29 06/11/19 14:03 Lisinopril (Prinivil) 10 mg DAILY ORAL 06/11/19 09:00 07/11/19 08:59 06/11/19 09:00 Methylprednisolone Sodium Succinate (Solu-MEDROL) 40 mg EVERY 8 HOURS IVP 06/11/19 06:00 07/11/19 05:59 06/11/19 14:04 Non-Formulary Medication (Non-Formulary Med) 1 ea DAILY ORAL 06/11/19 09:00 07/11/19 08:59 UNV Ondansetron HCl (Zofran) 4 mg Q8HR PRN IVP Nausea & Vomiting 06/10/19 22:15 07/10/19 22:14 Pantoprazole (Protonix) 40 mg DAILY@0630 ORAL 06/11/19 06:30 07/11/19 06:29 06/11/19 05:48 Barrington Morris MD Jun 11, 2019 14:13
--- NOTE | 2019-06-11 19:32 | NUR ---
HAND-OFF: Report given to Merry/SAGE, pt in stable condition.
--- NOTE | 2019-06-11 19:43 | NUR ---
NURSE NOTES: Pt is alert and oriented x4 on room air. Patient's sister and son at bedside. pt is sitting upright in semi fowlers, bed is locked in lowest position, bed alarm on, Belongings list checked and signed by patient. will continue to monitor pt. She denies any pain at this time, in no acute distress, on room air
[2019-06-11 20:00] VITALS: BP 137/66
[2019-06-11] MEDS ORDERED: Lactulose 20gm/30ml UDC ORAL PRN (21:30)
[2019-06-11] MEDS: Docusate 100mg cap ORAL SCH (21:53)
[2019-06-11 21:58] VITALS: BP 137/66
[2019-06-12] VITALS: BP 139/65
[2019-06-12] MEDS: Albuterol/Ipratropium 3ml neb HHN SCH ×6 (03:16→22:53)
[2019-06-12 04:00] VITALS: BP 112/64
[2019-06-12] MEDS: Solu-MEDROL 40mg Inj IVP SCH (06:38)
[2019-06-12] MEDS: NovoLOG Insulin Flexpen SUBQ SCH ×4 (06:40→20:37)
--- NOTE | 2019-06-12 06:57 | NUR ---
HAND-OFF: Report given to SAGE Cabral.
[2019-06-12 07:24] LABS: HEMATOCRIT 28.1 % (37.0-47.0); HEMOGLOBIN 9.1 G/DL (12.0-16.0); MEAN CORPUSCULAR VOLUME 91 FL (80-99); PLATELET COUNT 121 K/UL (150-450); RED BLOOD COUNT 3.09 M/UL (4.20-5.40); RED CELL DISTRIBUTION WIDTH 11.4 % (11.6-14.8); WHITE BLOOD COUNT 9.2 K/UL (4.8-10.8)
[2019-06-12 07:48] LABS: ANION GAP 12 mmol/L (5-15); BLOOD UREA NITROGEN 66 mg/dL (7-18); CALCIUM 8.6 MG/DL (8.5-10.1); CARBON DIOXIDE 21 MMOL/L (21-32); CHLORIDE 106 MMOL/L (98-107); POTASSIUM 4.1 MMOL/L (3.5-5.1); SODIUM 139 MMOL/L (136-145)
[2019-06-12 08:00] VITALS: BP 149/57
--- NOTE | 2019-06-12 08:08 | NUR ---
NURSE NOTES: pt. in bed having breakfast. Pt alert and talking. Pt on nuclear monitoring technician no signs of cardiac distress at this time. Pt bed is locked and in lowest position. Call light within reach. Will continue to monitor pt and follow plans of care. Pt schedule to have thoracentesis mond 06/13.
[2019-06-12] MEDS: Heparin 5000 units/ml inj SUBQ SCH ×2 (09:00→20:15)
[2019-06-12] MEDS: Doxycycline Monohydrate 100mg ORAL SCH ×2 (09:44→20:36)
[2019-06-12] MEDS: Docusate 100mg cap ORAL SCH ×2 (09:44→17:39)
[2019-06-12] MEDS: Lisinopril 20mg tab ORAL SCH (09:45)
[2019-06-12] MEDS: Allopurinol 100mg Tab ORAL SCH (09:46)
--- NOTE | 2019-06-12 10:17 | NUR ---
CASE MANAGEMENT: INITIAL REVIEW 68 YO F PRESENTED TO ED FROM HOME CC: DYSPNEA X 3 DAYS PMHx: hypertension, asthma, breast cancer , status post right-sided mastectomy, chronic kidney disease, diabetes mellitus, pericardial effusion SI:COPD EXACERBATION. T 98.2 HR 88 RR 19 B/P 153/72 SATS 95% ON RA K 5.2 BUN 54 CR 3.3 GLU 118 BNP 1565 IS: CEFEPIME IV X1 SOLU MEDROL IV X1 VANCO IV X1 Venous Duplex Scan Frandy Leg IMPRESSION: Normal bilateral lower extremity duplex venous ultrasound. CXR IMPRESSION: Severe cardiomegaly. PATIENT ADMITTED TO TELE 06/10/2019 @ 2021 DCP: PATIENT TO BE DISCHARGED TO HOME ONCE MEDICALLY CLEARED. PLAN OF CARE: US ASP THORACENTESIS 2D ECHO >> 55-60% NM VQ SCAN Addendum: 06/12/19 at 1411 by Cintia Cruz CM [facility]
[2019-06-12 12:00] VITALS: BP 116/74
--- NOTE | 2019-06-12 14:43 | Pulmonology Progress Note ---
Assessment/Plan Assessment/Plan Pulmonary Progress Note HPI Patient is a 68 year old woman with past history of chronic kidney disease, diabetes mellitus, hypertension, asthma, breast cancer ,status post right-sided mastectomy, previous pericardial effusion, admitted with worsening dyspnea x3 days, no aggravating or relieving factors, denies cough or sputum production, no fevers no chills, no chest pain, patient had a recent hospitalization was found to have a pericardial effusion and pleural effusion. Less SOB, K improved ED point of care ultrasound: shows pericardial effusion without e/o tamponade. Allergies: PENICILLINS TAPE Past Medical History: Chronic kidney disease, Diabetes mellitus, Hypertension, Asthma, Breast cancer ,status post right-sided mastectomy, Previous pericardial effusion Physical Exam Vital Signs Noted General Appearance: well appearing, no apparent distress, alert Head: normocephalic, atraumatic Eyes: bilateral eye PERRL, bilateral eye EOMI ENT: uvula midline, moist mucus membranes Neck: supple, no LN, no masses Respiratory: no respiratory distress, no retraction, no accessory muscle use, decreased breath sounds, CTAB Cardiovascular: normal peripheral pulses, regular rate, rhythm, HS1, HS2 normal no gallop, no murmur Gastrointestinal: non tender, soft, no guarding, no rebound Musculoskeletal: normal inspection Neurologic: alert, oriented x3 Skin: no rash, warm/dry, no edema Impression: Primary Impression: COPD/Asthma exacerbation CHF exacerbation Pericardial effusion Severe cardiomegaly on CXR Chronic kidney disease Diabetes mellitus Hypertension Breast cancer ,status post right-sided mastectomy Anemia Plan - Solumedrol - Duonebs Q4 - O2 PRN - Doxycycline - IV Lasix - Thoracentesis ordered - Monitor labs - PPX - LE dupplex negative - VQ scan - 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 - 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 - ISS - Cardiology Consultation - PRN BP meds Laboratory Tests Noted Test 06/10/19 19:18 White Blood Count 7.1 K/UL (4.8-10.8) Red Blood Count 3.54 M/UL (4.20-5.40) L Hemoglobin 10.6 G/DL (12.0-16.0) L Hematocrit 31.3 % (37.0-47.0) L Mean Corpuscular Volume 88 FL (80-99) Mean Corpuscular Hemoglobin 30.1 PG (27.0-31.0) Mean Corpuscular Hemoglobin Concent 34.0 G/DL (32.0-36.0) Red Cell Distribution Width 10.4 % (11.6-14.8) L Platelet Count 136 K/UL (150-450) L Mean Platelet Volume 6.4 FL (6.5-10.1) L Neutrophils (%) (Auto) 74.2 % (45.0-75.0) Lymphocytes (%) (Auto) 16.9 % (20.0-45.0) L Monocytes (%) (Auto) 7.5 % (1.0-10.0) Eosinophils (%) (Auto) 0.9 % (0.0-3.0) Basophils (%) (Auto) 0.5 % (0.0-2.0) Prothrombin Time 10.5 SEC (9.30-11.50) Prothrombin Time INR 1.0 (0.9-1.1) PTT 30 SEC (23-33) Sodium Level 140 MMOL/L (136-145) Potassium Level 5.2 MMOL/L (3.5-5.1) H Chloride Level 106 MMOL/L (98-107) Carbon Dioxide Level 21 MMOL/L (21-32) Anion Gap 13 mmol/L (5-15) Blood Urea Nitrogen 54 mg/dL (7-18) H Creatinine 3.3 MG/DL (0.55-1.30) H Estimate Glomerular Filtration Rate 13.9 mL/min (>60) Glucose Level 118 MG/DL (74-106) H Calcium Level 8.8 MG/DL (8.5-10.1) Total Bilirubin 0.5 MG/DL (0.2-1.0) Aspartate Amino Transferase (AST) 21 U/L (15-37) Alanine Aminotransferase (ALT) 19 U/L (12-78) Alkaline Phosphatase 78 U/L (46-116) Troponin I 0.000 ng/mL (0.000-0.056) Pro-B-Type Natriuretic Peptide 1565 pg/mL (0-125) H Total Protein 7.8 G/DL (6.4-8.2) Albumin 3.2 G/DL (3.4-5.0) L Globulin 4.6 g/dL Albumin/Globulin Ratio 0.7 (1.0-2.7) L Lipase 104 U/L (73-393) EKG: NSR, rate 74, QTc 404, no acute ST elevations normal axis Chest X-Ray: suggestion of left pleural effusion, severe cardiomegaly Subjective ROS Limited/Unobtainable: No Allergies: Coded Allergies: PENICILLINS (Verified Allergy, Unknown, 02/08/11) Uncoded Allergies: TAPE (Allergy, Unknown, 03/31/17) Objective Last 24 Hour Vital Signs Date Time Temp Pulse Resp B/P (MAP) Pulse Ox O2 Delivery O2 Flow Rate FiO2 06/12/19 12:00 86 06/12/19 09:45 149/57 06/12/19 09:45 79 149/88 06/12/19 09:00 Room Air Room Air 06/12/19 08:00 82 06/12/19 07:13 86 16 99 Room Air 21 84 16 95 06/12/19 04:00 81 06/12/19 04:00 98.0 83 20 112/64 (80) 98 06/12/19 03:16 84 20 99 Room Air 21 80 20 98 06/12/19 00:00 97.6 86 18 139/65 (89) 97 06/12/19 00:00 89 06/11/19 23:33 89 20 97 Room Air 21 86 20 95 06/11/19 21:58 97.9 89 18 137/66 (89) 98 06/11/19 21:00 Room Air Room Air 06/11/19 20:00 97.9 89 18 137/66 (89) 98 06/11/19 20:00 87 06/11/19 19:50 92 20 98 Room Air 21 89 20 97 06/11/19 16:00 95 06/11/19 15:38 95 20 98 Room Air 21 92 20 92 Intake and Output 06/11/19 06/12/19 19:00 07:00 Intake Total 360 ml Balance 360 ml Intake Oral 360 ml # Voids 3 4 Laboratory Tests 06/12/19 06:28: White Blood Count 9.2, Red Blood Count 3.09L, Hemoglobin 9.1L, Hematocrit 28.1L , Mean Corpuscular Volume 91, Mean Corpuscular Hemoglobin 29.6, Mean Corpuscular Hemoglobin Concent 32.6, Red Cell Distribution Width 11.4L, Platelet Count 121L, Mean Platelet Volume 7.7, Neutrophils (%) (Auto) , Lymphocytes (%) (Auto) , Monocytes (%) (Auto) , Eosinophils (%) (Auto) , Basophils (%) (Auto) , Differential Total Cells Counted 100, Neutrophils % ( Manual) 94H, Lymphocytes % (Manual) 3L, Monocytes % (Manual) 3, Eosinophils % ( Manual) 0, Basophils % (Manual) 0, Band Neutrophils 0, Platelet Estimate DecreasedL, Platelet Morphology Normal, Hypochromasia 1+, Sodium Level 139, Potassium Level 4.1, Chloride Level 106, Carbon Dioxide Level 21, Anion Gap 12, Blood Urea Nitrogen 66H, Creatinine 3.0H, Estimat Glomerular Filtration Rate 15.6, Glucose Level 197H, Calcium Level 8.6 Current Medications Medications (Trade) Dose Ordered Sig/Margarito Route PRN Reason Start Time Stop Time Status Last Admin Dose Admin Acetaminophen (Tylenol) 650 mg Q6H PRN ORAL Mild Pain/Temp > 100.5 06/10/19 22:15 07/10/19 22:14 Albuterol/ Ipratropium (Albuterol/ Ipratropium) 3 ml Q4HRT HHN 06/10/19 23:00 06/15/19 22:59 06/12/19 10:44 Allopurinol (Zyloprim) 100 mg DAILY ORAL 06/11/19 09:00 07/11/19 08:59 06/12/19 09:46 Amlodipine Besylate (Norvasc) 5 mg DAILY ORAL 06/11/19 09:00 07/11/19 08:59 06/12/19 09:45 Atorvastatin Calcium (Lipitor) 10 mg BEDTIME ORAL 06/11/19 21:00 07/11/19 20:59 06/11/19 20:32 Bisacodyl (Dulcolax) 10 mg DAILYPRN PRN RECTAL Constipation 06/11/19 21:30 07/11/19 21:29 Dextrose (Dextrose 50%) 25 ml Q30M PRN IV Hypoglycemia 06/10/19 22:15 07/10/19 22:14 Dextrose (Dextrose 50%) 50 ml Q30M PRN IV Hypoglycemia 06/10/19 22:15 07/10/19 22:14 Docusate Sodium (Colace) 100 mg TWICE A DAY ORAL 06/11/19 21:30 07/11/19 21:29 06/12/19 09:44 Doxycycline Monohydrate (Doxycycline Monohydrate) 100 mg EVERY 12 HOURS ORAL 06/11/19 09:00 06/18/19 08:59 06/12/19 09:44 Furosemide (Lasix) 20 mg Q12HR@0600,1800 IV 06/11/19 06:00 07/11/19 05:59 06/12/19 06:38 Heparin Sodium (Porcine) (Heparin 5000 units/ml) 5,000 units EVERY 12 HOURS SUBQ 06/11/19 09:00 07/11/19 08:59 06/11/19 09:00 Hydralazine HCl (Apresoline) 25 mg Q6HR PRN ORAL SBP>180 06/10/19 22:15 07/10/19 22:14 Insulin Aspart (NovoLOG) BEFORE MEALS AND HS SUBQ 06/11/19 06:30 07/11/19 06:29 06/12/19 13:25 Lactulose (Cephulac) 30 gm Q8H PRN ORAL constipation 06/11/19 21:30 07/11/19 21:29 Lisinopril (Prinivil) 10 mg DAILY ORAL 06/11/19 09:00 07/11/19 08:59 06/12/19 09:45 Methylprednisolone Sodium Succinate (Solu-MEDROL) 40 mg DAILY IVP 06/13/19 09:00 07/11/19 05:59 Ondansetron HCl (Zofran) 4 mg Q8HR PRN IVP Nausea & Vomiting 06/10/19 22:15 07/10/19 22:14 Pantoprazole (Protonix) 40 mg DAILY@0630 ORAL 06/11/19 06:30 07/11/19 06:29 06/12/19 06:39 Patient Own Medication (Patient's Own Med) 1 ea DAILY ORAL 06/12/19 09:00 07/12/19 08:59 06/12/19 09:43 Barrington Morris MD Jun 12, 2019 14:43
[2019-06-12 16:00] VITALS: BP 149/50
[2019-06-12 20:00] VITALS: BP_SYST 131; BP_SYST 149; BP_DIAS 50; BP_DIAS 77
--- NOTE | 2019-06-12 20:34 | NUR ---
HAND-OFF: Report given to Irma/SAGE, consent was signed by pt and all information about pt thoracentesis was endorsed to nurse.
[2019-06-13] VITALS: BP 132/58
[2019-06-13] MEDS: Albuterol/Ipratropium 3ml neb HHN SCH ×6 (02:56→23:46)
[2019-06-13] MEDS: NovoLOG Insulin Flexpen SUBQ SCH ×4 (06:30→21:29)
--- NOTE | 2019-06-13 07:10 | NUR ---
HAND-OFF: Report given to SAGE Morley.
[2019-06-13 07:24] LABS: HEMATOCRIT 29.5 % (37.0-47.0); HEMOGLOBIN 9.7 G/DL (12.0-16.0); MEAN CORPUSCULAR VOLUME 91 FL (80-99); PLATELET COUNT 137 K/UL (150-450); RED BLOOD COUNT 3.25 M/UL (4.20-5.40); RED CELL DISTRIBUTION WIDTH 11.8 % (11.6-14.8); WHITE BLOOD COUNT 11.4 K/UL (4.8-10.8)
--- NOTE | 2019-06-13 07:45 | NUR ---
NURSE NOTES: Patient received from Merry. Patient stable eating breakfast in bed. No complaints of pain no s/sx of distress. RR even and unlabored on RA. Side rails up x2, call light within reach, bed low and locked. Will continue to monitor.
[2019-06-13 07:48] LABS: INR 1.1 (0.9-1.1)
[2019-06-13 07:49] LABS: ANION GAP 13 mmol/L (5-15); BLOOD UREA NITROGEN 80 mg/dL (7-18); CALCIUM 8.6 MG/DL (8.5-10.1); CARBON DIOXIDE 21 MMOL/L (21-32); CHLORIDE 106 MMOL/L (98-107); CREATININE 3.6 MG/DL (0.55-1.30); SODIUM 140 MMOL/L (136-145)
[2019-06-13 08:00] VITALS: BP 143/56
--- NOTE | 2019-06-13 08:46 | Pulmonology Progress Note ---
Assessment/Plan Assessment/Plan Impression: Primary Impression: COPD/Asthma exacerbation CHF exacerbation Pericardial effusion Severe cardiomegaly Chronic kidney disease Diabetes mellitus Hypertension Breast cancer ,status post right-sided mastectomy Anemia Plan - Solumedrol and taper - Duonebs Q4 - O2 PRN - IV Lasix and monitor - Thoracentesis ordered and pending - Monitor labs - 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 - cardiology to see impression, plan, and exam edited and reviewed in detail care discussed with RN Subjective Allergies: Coded Allergies: PENICILLINS (Verified Allergy, Unknown, 02/08/11) Uncoded Allergies: TAPE (Allergy, Unknown, 03/31/17) Subjective care noted and reviewed ambulatory and improved on oxygen Objective Last 24 Hour Vital Signs Date Time Temp Pulse Resp B/P (MAP) Pulse Ox O2 Delivery O2 Flow Rate FiO2 06/13/19 08:13 Room Air Room Air 06/13/19 08:11 86 16 99 Room Air 21 83 18 95 06/13/19 08:00 98.1 78 20 143/56 (85) 98 06/13/19 04:00 81 06/13/19 02:57 87 16 97 Room Air 21 85 16 94 06/13/19 00:00 97.7 82 18 132/58 (82) 99 06/13/19 00:00 82 06/12/19 22:53 85 16 96 Room Air 21 83 16 94 06/12/19 21:00 Room Air Room Air 06/12/19 20:00 97.7 88 20 149/50 (83) 96 06/12/19 20:00 97.7 84 17 131/77 (95) 98 06/12/19 20:00 87 06/12/19 19:47 88 18 97 Room Air 21 85 16 96 06/12/19 16:00 98.2 88 20 149/50 (83) 96 06/12/19 16:00 88 06/12/19 15:08 87 17 100 Room Air 21 83 18 98 06/12/19 12:00 86 06/12/19 12:00 97.5 90 18 116/74 (88) 95 06/12/19 10:54 84 18 99 Room Air 21 80 16 96 06/12/19 09:45 149/57 06/12/19 09:45 79 149/88 06/12/19 09:00 Room Air Room Air Intake and Output 06/12/19 06/13/19 18:59 06:59 Intake Total 360 ml Balance 360 ml Intake Oral 360 ml # Voids 3 4 # Bowel Movements 1 Objective WDWN NAD reduced breath sounds bilaterally with some rhonchi no wheeze [id number] without MRG NABS nontender no HSM no CCE nonfocal ambulatory Laboratory Tests 06/13/19 06:49: White Blood Count 11.4H, Red Blood Count 3.25L, Hemoglobin 9.7L, Hematocrit 29.5L, Mean Corpuscular Volume 91, Mean Corpuscular Hemoglobin 29.9, Mean Corpuscular Hemoglobin Concent 32.9, Red Cell Distribution Width 11.8, Platelet Count 137L, Mean Platelet Volume 7.6, Neutrophils (%) (Auto) , Lymphocytes (%) ( Auto) , Monocytes (%) (Auto) , Eosinophils (%) (Auto) , Basophils (%) (Auto) , Neutrophils % (Manual) [Pending], Lymphocytes % (Manual) [Pending], Platelet Estimate [Pending], Platelet Morphology [Pending], Prothrombin Time 11.3, Prothromb Time International Ratio 1.1, Sodium Level 140, Potassium Level 4.0, Chloride Level 106, Carbon Dioxide Level 21, Anion Gap 13, Blood Urea Nitrogen 80H, Creatinine 3.6H, Estimat Glomerular Filtration Rate 12.6, Glucose Level 139H, Calcium Level 8.6 Current Medications Medications (Trade) Dose Ordered Sig/Margarito Route PRN Reason Start Time Stop Time Status Last Admin Dose Admin Acetaminophen (Tylenol) 650 mg Q6H PRN ORAL Mild Pain/Temp > 100.5 06/10/19 22:15 07/10/19 22:14 Albuterol/ Ipratropium (Albuterol/ Ipratropium) 3 ml Q4HRT HHN 06/10/19 23:00 06/15/19 22:59 06/13/19 08:00 Allopurinol (Zyloprim) 100 mg DAILY ORAL 06/11/19 09:00 07/11/19 08:59 06/12/19 09:46 Amlodipine Besylate (Norvasc) 5 mg DAILY ORAL 06/11/19 09:00 07/11/19 08:59 06/12/19 09:45 Atorvastatin Calcium (Lipitor) 10 mg BEDTIME ORAL 06/11/19 21:00 07/11/19 20:59 06/12/19 20:36 Bisacodyl (Dulcolax) 10 mg DAILYPRN PRN RECTAL Constipation 06/11/19 21:30 07/11/19 21:29 Dextrose (Dextrose 50%) 25 ml Q30M PRN IV Hypoglycemia 06/10/19 22:15 07/10/19 22:14 Dextrose (Dextrose 50%) 50 ml Q30M PRN IV Hypoglycemia 06/10/19 22:15 07/10/19 22:14 Docusate Sodium (Colace) 100 mg TWICE A DAY ORAL 06/11/19 21:30 07/11/19 21:29 06/12/19 17:39 Doxycycline Monohydrate (Doxycycline Monohydrate) 100 mg EVERY 12 HOURS ORAL 06/11/19 09:00 06/18/19 08:59 06/12/19 20:36 Furosemide (Lasix) 40 mg Q12HR@0600,1800 IV 06/13/19 06:00 07/13/19 05:59 06/13/19 06:29 Heparin Sodium (Porcine) (Heparin 5000 units/ml) 5,000 units EVERY 12 HOURS SUBQ 06/11/19 09:00 07/11/19 08:59 06/11/19 09:00 Hydralazine HCl (Apresoline) 25 mg Q6HR PRN ORAL SBP>180 06/10/19 22:15 07/10/19 22:14 Insulin Aspart (NovoLOG) BEFORE MEALS AND HS SUBQ 06/11/19 06:30 07/11/19 06:29 06/13/19 06:30 Lactulose (Cephulac) 30 gm Q8H PRN ORAL constipation 06/11/19 21:30 07/11/19 21:29 Lisinopril (Prinivil) 10 mg DAILY ORAL 06/11/19 09:00 07/11/19 08:59 06/12/19 09:45 Methylprednisolone Sodium Succinate (Solu-MEDROL) 40 mg DAILY IVP 06/13/19 09:00 07/11/19 05:59 Ondansetron HCl (Zofran) 4 mg Q8HR PRN IVP Nausea & Vomiting 06/10/19 22:15 07/10/19 22:14 Pantoprazole (Protonix) 40 mg DAILY@0630 ORAL 06/11/19 06:30 07/11/19 06:29 06/13/19 06:29 Patient Own Medication (Patient's Own Med) 1 ea DAILY ORAL 06/12/19 09:00 07/12/19 08:59 06/12/19 09:43 Sanchez Kwong MD Jun 13, 2019 08:46
[2019-06-13] MEDS: Heparin 5000 units/ml inj SUBQ SCH ×2 (09:00→21:29)
[2019-06-13] MEDS: Solu-MEDROL 40mg Inj IVP SCH (09:23)
[2019-06-13] MEDS: Lisinopril 20mg tab ORAL SCH (09:23)
[2019-06-13] MEDS: Doxycycline Monohydrate 100mg ORAL SCH ×2 (09:23→21:29)
[2019-06-13] MEDS: Docusate 100mg cap ORAL SCH ×2 (09:23→17:32)
[2019-06-13] MEDS: Allopurinol 100mg Tab ORAL SCH (09:23)
[2019-06-13] MEDS ORDERED: HYDROcodone/Acetamin 10/325 tab ORAL SCH (10:19)
--- NOTE | 2019-06-13 11:44 | NUR ---
NURSE NOTES: Order recieved for off tele order. Pt taken down for thoracentesis. Will hold insulin until pt returns.
[2019-06-13 12:00] VITALS: BP_SYST 122; BP_SYST 138; BP_DIAS 63; BP_DIAS 74
--- NOTE | 2019-06-13 12:37 | Cardiology Report ---
APPROVED REPORT EXAM: Two-dimensional and M-mode echocardiogram. INDICATION Shortness of breath M-Mode DIMENSIONS IVSd1.2 (0.7-1.1cm)Left Atrium (MM)4.0 (1.6-4.0cm) LVDd4.4 (3.5-5.6cm)Aortic Root2.4 (2.0-3.7cm) PWd1.3 (0.7-1.1cm)Aortic Cusp Exc.1.9 (1.5-2.0cm) IVSs1.6 cm LVDs2.5 (2.5-4.0cm) PWs1.7 cm Normal left ventricular chamber size, systolic function and wall motion. Left ventricular ejection fraction estimated to be 55-60%. Medium sized circumferential pericardial effision at 2.1cm by 2D. There is no echocardiographic evidence for periacardial tamponade at this time. However it is recommended to repeat the test in a few days if clinically suspected to have pulsus paradoxus. Moderate pleural effision present at 4.8cm by 2D No evidence of right atrium early diastolic collapse. Right ventricular collapse. Tricuspid valve respiratory variation is more than 50% Mitral valve respiratory variation is less than 25% Focal aortic valve sclerosis with adequate cusp excursion. Thickened mitral valve leaflets with normal excursion. Mitral annulus and aortic root calcification. Pulmonic valve not well visualized. Normal tricuspid valve structure. IVC at normal size with physiologic collapse (No evidence for IVC plethora). A color flow and spectral Doppler study was performed and revealed: Mild mitral regurgitation. Mitral diastolic velocities suggest reduced left ventricular relaxation c/w mild LV diastolic dysfunction (Grade I ) Mild tricuspid regurgitation. Tricuspid systolic velocities suggests peak right ventricular systolic pressure of 44 mmHg consistent with mild pulmonary hypertension. Pulmonic regurgitation present. DR. DEYVI FONTANA WAS NOTIFIED ABOUT THE PRELIMINARY RESULTS.
--- NOTE | 2019-06-13 13:00 | NUR ---
NURSE NOTES: Pt returned from thoracentesis. Per pt she feels a lot better. 130mLs removed. Insulin given. Pt eating.
--- NOTE | 2019-06-13 14:52 | Diagnostic Imaging Report ---
Indications: Pleural effusion Technique: Ultrasound used to localize optimal puncture site. Sterile prepping and draping of the left lower chest performed. Local anesthesia with 1% lidocaine. Dermatotomy made. Puncture of the pleural space using thoracentesis needle. Stylet removed. Catheter placed to vacuum bottle suction. Fluid was aspirated. Patient tolerated procedure well, without immediate complication. Findings: Followup sonography demonstrates complete resolution of pleural fluid. Followup chest x-ray is pending. Impression: Successful ultrasound-guided left thoracentesis, yielding 130 cc of fluid
--- NOTE | 2019-06-13 15:18 | NUR ---
CASE MANAGEMENT:REVIEW 06/13/19 SI: COPD EXACERBATION. CHF EXACERBATION 97.3 79 18 122/63 93% ON RA WBC+11.4 H/H-9.7/29.5 BUN+80 CR+3.6 IS: IV SOLUMEDROL QD IV LASIX Q12 NORVASC PO QD LISINOPRIL PO QD DOXYCYCLINE PO Q12 : TELEMETRY STATUS DCP: FROM HOME
--- NOTE | 2019-06-13 15:19 | NUR ---
NURSE NOTES: Pt taken down for VQ scan.
--- NOTE | 2019-06-13 15:48 | Diagnostic Imaging Report ---
Indication: Status post thoracentesis Comparison: 06/10/2019 A single view chest radiograph was obtained. Findings: No pneumothorax seen following thoracentesis which was performed on the left. Some obscuring of the left diaphragm noted. Heart is enlarged. Mild pulmonary vascular congestion again noted. There IMPRESSION: No pneumothorax
--- NOTE | 2019-06-13 15:57 | NUR ---
NM Lung V/Q Scan complete.
--- NOTE | 2019-06-13 16:15 | Diagnostic Imaging Report ---
Indication: Chest pain Technique: A ventilation/perfusion scan was performed. Ventilation was performed utilizing 40 mCi of Technetium 99m-DTPA. Perfusion was performed with 5.5 mCi of technetium 99m-MAA injected intravenously. Multiple side by side projections obtained. Findings: Ventilation is mildly heterogeneous. No significant defects are identified. Perfusion is mildly heterogeneous. No significant defects are identified. No mismatched defects seen. Impression: Low probability for pulmonary embolus Interpretation of findings are based on PIPADMINID II thompson (2006).
--- NOTE | 2019-06-13 17:00 | Progress Note ---
DATE: 06/13/2019 CARDIOLOGY PROGRESS NOTE SUBJECTIVE: The patient was seen last evening. Today, she is about the same. Still with congestion and shortness of breath, but not noted to be in the supine position. The patient's echocardiogram was reviewed personally. She does have a moderate pericardial effusion. This may be slightly increased from 2 months ago or unchanged. There is definitely no evidence of right atrial or ventricular diastolic collapse. There is evidence of pleural fluid with fibrinous debris. PHYSICAL EXAMINATION: VITAL SIGNS: Blood pressure 143/56, heart rate 78, respirations 20, afebrile. LUNGS: Diminished breath sounds. Few wheezes. No Kussmaul sign. CARDIAC: Regular rhythm rate. Normal S1, S2. A 1/6 systolic murmur at apex. EXTREMITIES: No edema. LABORATORY DATA: White count 11, hemoglobin 9.7. Potassium 4, BUN 80, creatinine 3.6. IMPRESSION: 1. Pericardial effusion. No signs of tamponade. No evidence of significant progression from 2 months ago previously. 2. Chronic renal failure. 3. Hypertensive heart disease. 4. Acute on chronic diastolic congestive heart failure. 5. Pleural effusion. 6. COPD exacerbation. RECOMMENDATIONS: 1. Diuresis efforts. 2. Trend natriuretic peptide assay. 3. Pleural fluid via thoracentesis for diagnostic purposes and possibly therapeutic purpose. 4. No acute indication for pericardiocentesis at this time. Barrington Marsh M.D. DR: ABBI JOB#: [id number] CC:
--- NOTE | 2019-06-13 17:30 | Consultation ---
DATE OF CONSULTATION: 06/12/2019 CARDIOLOGY CONSULTATION CONSULTING PHYSICIAN: Barrington Marsh M.D. REFERRING PHYSICIAN: Sanchez Kwong M.D. REASON FOR CONSULTATION: Pericardial effusion. HISTORY OF PRESENT ILLNESS: This is a 68-year-old female with chronic kidney disease, hypertensive heart disease, and known history of pericardial effusion, who was hospitalized here two months ago. At that time, the effusion was not felt to be hemodynamically significant and treated medically. She presents to the hospital today with worsening shortness of breath for three days. No fevers, chills, chest pain, or sputum production noted. PAST MEDICAL HISTORY: Insulin-requiring diabetes mellitus, diabetic nephropathy with chronic kidney disease stage 4 to 5, hypertension with hypertensive heart disease, asthma, and history of breast cancer with right mastectomy. ALLERGIES: Penicillin. MEDICATIONS: Prior to admission, reviewed and reconciled. FAMILY HISTORY: Noncontributory. SOCIAL HISTORY: REVIEW OF SYSTEMS: As noted above, otherwise all systems negative. PHYSICAL EXAMINATION: VITAL SIGNS: Blood pressure 149/50, pulse 87, respirations 17. NECK: Jugular venous pressure is slightly elevated. No Kussmaul sign. LUNGS: Diminished breath sounds. Few wheezes. CARDIAC: Regular rhythm and rate. Normal S1, S2. A 1/6 systolic murmur at apex. ABDOMEN: Soft and nontender. EXTREMITIES: Trace dependent edema. DIAGNOSTIC DATA: EKG on admission revealed sinus rhythm, normal voltage, and nonspecific ST changes. Chest x-ray, cardiomegaly. No acute process. IMPRESSION AND RECOMMENDATION: 1. Pericardial effusion persistent and probably associated with renal failure, but may also be due to infectious or malignant process, especially with concomitantly pleural effusion and history of prior breast cancer. At the present time, there is no clinical or echocardiographic evidence of tamponade, as such pericardiocentesis is not indicated, but pleural fluid may be useful for diagnostic purposes. 2. The patient should be diuresed and treated for bronchospasm with close monitoring of her clinical parameters. 3. Consideration for transfer to a tertiary care facility for pericardiocentesis should be made if clinical condition changes and this becomes warranted. Barrington Marsh M.D. DR: GABRIELLE JOB#: [id number] CC:
--- NOTE | 2019-06-13 19:13 | NUR ---
HAND-OFF: Report given to Esteban Matthews RN. Patient stable. Plan of care endorsed.
--- NOTE | 2019-06-13 19:30 | Cardiology Report ---
APPROVED REPORT EKG Measurement Heart [id number] MI [id number] Sinus rhythm with short MI Low voltage QRS Nonspecific T wave abnormality Abnormal ECG
[2019-06-13 20:00] VITALS: BP 141/69
--- NOTE | 2019-06-13 20:00 | NUR ---
NURSE NOTES: Report received from Kacie Martínez RN. Patient is observed in bed, awake, alert, oriented, and able to make needs known. Respiratory even and unlabored. Denies pain at this time. IV site is asymptomatic, patent, and intact. Bed is in lowest position with side rails up x2 and brakes are engaged. Bed alarm is on. Encouraged patient to use call light when in need of assistance, pt verbalized understanding. Educated the patient regarding 24 hr urine collection; pt verbalized understanding. Will continue to monitor.
[2019-06-14] VITALS: BP 135/66
--- NOTE | 2019-06-14 | NUR ---
NURSE NOTES: Pt asleep but arousable by voice. Denies pain at this time. VSS. Will continue to monitor.
[2019-06-14] MEDS: Albuterol/Ipratropium 3ml neb HHN SCH ×3 (04:01→11:06)
[2019-06-14 04:17] VITALS: BP 108/49
--- NOTE | 2019-06-14 05:31 | General Progress Note ---
Assessment/Plan Problem List: (1) Breast cancer ICD Codes: C50.919 - Malignant neoplasm of unspecified site of unspecified female breast SNOMED: 780584986 (2) CKD (chronic kidney disease) ICD Codes: N18.9 - Chronic kidney disease, unspecified SNOMED: 313087350 (3) Hyperglycemia (4) Pneumonia ICD Codes: J18.9 - Pneumonia, unspecified organism SNOMED: 099146923 (5) Dyspnea ICD Codes: R06.00 - Dyspnea, unspecified SNOMED: 175104707 Qualifiers: Qualified Codes: R06.00 - Dyspnea, unspecified (6) COPD exacerbation ICD Codes: J44.1 - Chronic obstructive pulmonary disease with (acute) exacerbation SNOMED: 244863370 Status: stable, progressing Assessment/Plan: iv abx iv steroids resp rx wean o2 dvt/stress ulcer prophylaxis monitor bs Subjective ROS Limited/Unobtainable: No Constitutional: Reports: weakness HEENT: Reports: no symptoms Cardiovascular: Reports: no symptoms Respiratory: Reports: cough, SOB with excertion Gastrointestinal/Abdominal: Reports: no symptoms Genitourinary: Reports: no symptoms Neurologic/Psychiatric: Reports: no symptoms Endocrine: Reports: no symptoms Hematologic/Lymphatic: Reports: no symptoms Allergies: Coded Allergies: PENICILLINS (Verified Allergy, Unknown, 02/08/11) Uncoded Allergies: TAPE (Allergy, Unknown, 03/31/17) All Systems: reviewed and negative except above Subjective asked to assist with general medical management. admitted with pna. s/p thoracentesis. on iv steroids and abx. overall feels like shes improving Objective Last 24 Hour Vital Signs Date Time Temp Pulse Resp B/P (MAP) Pulse Ox O2 Delivery O2 Flow Rate FiO2 06/14/19 04:17 98.4 87 17 108/49 (68) 97 06/14/19 03:59 83 18 99 Room Air 21 87 18 96 06/14/19 03:26 80 06/14/19 00:00 97.5 73 17 135/66 (89) 97 06/13/19 23:47 80 18 100 Room Air 21 83 18 97 06/13/19 23:36 78 06/13/19 20:25 Room Air Room Air 06/13/19 20:00 97.8 78 18 141/69 (93) 96 06/13/19 19:40 80 18 100 Room Air 21 77 18 97 06/13/19 19:00 82 06/13/19 16:00 94 06/13/19 14:22 83 18 99 Room Air 21 81 18 97 06/13/19 12:00 89 06/13/19 12:00 97.3 79 18 138/74 (95) 96 06/13/19 09:24 86 143/56 06/13/19 09:23 143/56 06/13/19 08:13 Room Air Room Air 06/13/19 08:11 86 16 99 Room Air 21 83 18 95 06/13/19 08:00 98.1 78 20 143/56 (85) 98 06/13/19 08:00 80 Intake and Output 06/13/19 06/14/19 19:00 07:00 Intake Total 360 ml Balance 360 ml Intake Oral 360 ml # Voids 3 2 Laboratory Tests 06/13/19 06:49: White Blood Count 11.4H, Red Blood Count 3.25L, Hemoglobin 9.7L, Hematocrit 29.5L, Mean Corpuscular Volume 91, Mean Corpuscular Hemoglobin 29.9, Mean Corpuscular Hemoglobin Concent 32.9, Red Cell Distribution Width 11.8, Platelet Count 137L, Mean Platelet Volume 7.6, Neutrophils (%) (Auto) , Lymphocytes (%) ( Auto) , Monocytes (%) (Auto) , Eosinophils (%) (Auto) , Basophils (%) (Auto) , Differential Total Cells Counted 100, Neutrophils % (Manual) 85H, Lymphocytes % (Manual) 10L, Monocytes % (Manual) 5, Eosinophils % (Manual) 0, Basophils % ( Manual) 0, Band Neutrophils 0, Platelet Estimate DecreasedL, Platelet Morphology Normal, Hypochromasia 2+, Anisocytosis 1+, Prothrombin Time 11.3, Prothromb Time International Ratio 1.1, Sodium Level 140, Potassium Level 4.0, Chloride Level 106, Carbon Dioxide Level 21, Anion Gap 13, Blood Urea Nitrogen 80H, Creatinine 3.6H, Estimat Glomerular Filtration Rate 12.6, Glucose Level 139H, Calcium Level 8.6 06/13/19 12:10: Body Fluid Lactate Dehydrogenase [Pending] Height (Feet): 5 Height (Inches): 2.00 Weight (Pounds): 164 General Appearance: WD/WN, alert Neck: supple Cardiovascular: regular rhythm Respiratory/Chest: expiratory wheezing Abdomen: normal bowel sounds, non tender, soft, no organomegaly Edema: no edema noted Arm (L), no edema noted Arm (R), no edema noted Leg (L), no edema noted Leg (R), no edema noted Pedal (L), no edema noted Pedal (R), no edema noted Generalized Benson Torres MD Jun 14, 2019 05:31
[2019-06-14] MEDS: NovoLOG Insulin Flexpen SUBQ SCH ×2 (05:51→13:15)
[2019-06-14 07:17] LABS: BASOPHILS % (AUTO) 0.2 % (0.0-2.0); EOSINOPHILS % (AUTO) 0.1 % (0.0-3.0); HEMATOCRIT 29.1 % (37.0-47.0); HEMOGLOBIN 9.6 G/DL (12.0-16.0); MEAN CORPUSCULAR VOLUME 91 FL (80-99); MONOCYTES % (AUTO) 6.3 % (1.0-10.0); NEUTROPHILS % (AUTO) 79.5 % (45.0-75.0); PLATELET COUNT 129 K/UL (150-450); RED BLOOD COUNT 3.19 M/UL (4.20-5.40); RED CELL DISTRIBUTION WIDTH 11.6 % (11.6-14.8); WHITE BLOOD COUNT 9.6 K/UL (4.8-10.8)
--- NOTE | 2019-06-14 07:20 | NUR ---
HAND-OFF: Report given to Fritz CAZARES. Endorsed plan of care.
--- NOTE | 2019-06-14 07:22 | NUR ---
NURSE NOTES: Received pt in bed, AAO x 4. Vietnamese speaking. Room air. No c/o of pain/distress. IV on LAC 20g intact and patent, with SL. Bed in the lowest and locked. Call light within reach. Will continue to monitor
[2019-06-14 07:25] LABS: ALANINE AMINOTRANSFERASE 18 U/L (12-78); ALBUMIN 2.8 G/DL (3.4-5.0); ALBUMIN/GLOBULIN RATIO 0.7 (1.0-2.7); ALKALINE PHOSPHATASE 55 U/L (46-116); ANION GAP 8 mmol/L (5-15); ASPARTATE AMINO TRANSFERASE 18 U/L (15-37); BILIRUBIN,TOTAL 0.4 MG/DL (0.2-1.0); CALCIUM 8.3 MG/DL (8.5-10.1); CARBON DIOXIDE 27 MMOL/L (21-32); CHLORIDE 104 MMOL/L (98-107); CREATININE 3.7 MG/DL (0.55-1.30); POTASSIUM 4.2 MMOL/L (3.5-5.1); SODIUM 139 MMOL/L (136-145)
[2019-06-14 07:42] LABS: BLOOD UREA NITROGEN 97 mg/dL (7-18)
[2019-06-14] MEDS: Lisinopril 20mg tab ORAL SCH (09:00)
[2019-06-14] MEDS: Heparin 5000 units/ml inj SUBQ SCH (09:00)
--- NOTE | 2019-06-14 09:03 | Pulmonology Progress Note ---
Assessment/Plan Assessment/Plan Impression: Primary Impression: COPD/Asthma exacerbation CHF exacerbation Pericardial effusion Severe cardiomegaly Chronic kidney disease Diabetes mellitus Hypertension Breast cancer ,status post right-sided mastectomy Anemia s/p tap Plan - Solumedrol dc for now - O2 PRN - IV Lasix to PO - Thoracentesis completed - had recent pericardiocentesis - Monitor labs - dc home impression, plan, and exam edited and reviewed in detail care discussed with RN Subjective Allergies: Coded Allergies: PENICILLINS (Verified Allergy, Unknown, 02/08/11) Uncoded Allergies: TAPE (Allergy, Unknown, 03/31/17) Subjective care noted and reviewed ambulatory and improved on oxygen and stable cleared by cards Objective Last 24 Hour Vital Signs Date Time Temp Pulse Resp B/P (MAP) Pulse Ox O2 Delivery O2 Flow Rate FiO2 06/14/19 08:40 Room Air Room Air 06/14/19 07:15 86 18 98 Room Air 21 81 18 93 06/14/19 04:17 98.4 87 17 108/49 (68) 97 06/14/19 03:59 83 18 99 Room Air 21 87 18 96 06/14/19 03:26 80 06/14/19 00:00 97.5 73 17 135/66 (89) 97 06/13/19 23:47 80 18 100 Room Air 21 83 18 97 06/13/19 23:36 78 06/13/19 20:25 Room Air Room Air 06/13/19 20:00 97.8 78 18 141/69 (93) 96 06/13/19 19:40 80 18 100 Room Air 21 77 18 97 06/13/19 19:00 82 06/13/19 16:00 94 06/13/19 14:22 83 18 99 Room Air 21 81 18 97 06/13/19 12:00 89 06/13/19 12:00 97.3 79 18 138/74 (95) 96 06/13/19 09:24 86 143/56 06/13/19 09:23 143/56 Intake and Output 06/13/19 06/14/19 19:00 07:00 Intake Total 360 ml Balance 360 ml Intake Oral 360 ml # Voids 3 2 Objective WDWN NAD reduced breath sounds bilaterally with some rhonchi no wheeze [id number] without MRG NABS nontender no HSM no CCE nonfocal ambulatory Laboratory Tests 12/2/19 12:10: Body Fluid Lactate Dehydrogenase [Pending] 06/14/19 06:25: White Blood Count 9.6, Red Blood Count 3.19L, Hemoglobin 9.6L, Hematocrit 29.1L , Mean Corpuscular Volume 91, Mean Corpuscular Hemoglobin 30.0, Mean Corpuscular Hemoglobin Concent 32.8, Red Cell Distribution Width 11.6, Platelet Count 129L, Mean Platelet Volume 7.4, Neutrophils (%) (Auto) 79.5H, Lymphocytes (%) (Auto) 14.0L, Monocytes (%) (Auto) 6.3, Eosinophils (%) (Auto) 0.1, Basophils (%) (Auto) 0.2, Sodium Level 139, Potassium Level 4.2, Chloride Level 104, Carbon Dioxide Level 27, Anion Gap 8, Blood Urea Nitrogen 97H, Creatinine 3.7H, Estimat Glomerular Filtration Rate 12.2, Glucose Level 124H, Calcium Level 8.3L, Magnesium Level 1.8, Total Bilirubin 0.4, Aspartate Amino Transf ( AST/SGOT) 18, Alanine Aminotransferase (ALT/SGPT) 18, Alkaline Phosphatase 55, Pro-B-Type Natriuretic Peptide 5308H, Total Protein 6.9, Albumin 2.8L, Globulin 4.1, Albumin/Globulin Ratio 0.7L Current Medications Medications (Trade) Dose Ordered Sig/Margarito Route PRN Reason Start Time Stop Time Status Last Admin Dose Admin Acetaminophen (Tylenol) 650 mg Q6H PRN ORAL Mild Pain/Temp > 100.5 06/10/19 22:15 07/10/19 22:14 Albuterol/ Ipratropium (Albuterol/ Ipratropium) 3 ml Q4HRT HHN 06/10/19 23:00 06/15/19 22:59 06/14/19 07:14 Allopurinol (Zyloprim) 100 mg DAILY ORAL 06/11/19 09:00 07/11/19 08:59 06/13/19 09:23 Amlodipine Besylate (Norvasc) 5 mg DAILY ORAL 06/11/19 09:00 07/11/19 08:59 06/13/19 09:24 Atorvastatin Calcium (Lipitor) 10 mg BEDTIME ORAL 06/11/19 21:00 07/11/19 20:59 06/13/19 21:30 Bisacodyl (Dulcolax) 10 mg DAILYPRN PRN RECTAL Constipation 06/11/19 21:30 07/11/19 21:29 Dextrose (Dextrose 50%) 25 ml Q30M PRN IV Hypoglycemia 06/10/19 22:15 07/10/19 22:14 Dextrose (Dextrose 50%) 50 ml Q30M PRN IV Hypoglycemia 06/10/19 22:15 07/10/19 22:14 Docusate Sodium (Colace) 100 mg TWICE A DAY ORAL 06/11/19 21:30 07/11/19 21:29 06/13/19 17:32 Doxycycline Monohydrate (Doxycycline Monohydrate) 100 mg EVERY 12 HOURS ORAL 06/11/19 09:00 06/18/19 08:59 06/13/19 21:29 Furosemide (Lasix) 40 mg Q12HR@0600,1800 IV 06/13/19 06:00 07/13/19 05:59 06/14/19 05:55 Heparin Sodium (Porcine) (Heparin 5000 units/ml) 5,000 units EVERY 12 HOURS SUBQ 06/11/19 09:00 07/11/19 08:59 06/13/19 21:29 Hydralazine HCl (Apresoline) 25 mg Q6HR PRN ORAL SBP>180 06/10/19 22:15 07/10/19 22:14 Insulin Aspart (NovoLOG) BEFORE MEALS AND HS SUBQ 06/11/19 06:30 07/11/19 06:29 06/14/19 05:51 Lactulose (Cephulac) 30 gm Q8H PRN ORAL constipation 06/11/19 21:30 07/11/19 21:29 Lisinopril (Prinivil) 10 mg DAILY ORAL 06/11/19 09:00 07/11/19 08:59 06/13/19 09:23 Methylprednisolone Sodium Succinate (Solu-MEDROL) 40 mg DAILY IVP 06/13/19 09:00 07/11/19 05:59 06/13/19 09:23 Ondansetron HCl (Zofran) 4 mg Q8HR PRN IVP Nausea & Vomiting 06/10/19 22:15 07/10/19 22:14 Pantoprazole (Protonix) 40 mg DAILY@0630 ORAL 06/11/19 06:30 07/11/19 06:29 06/14/19 05:51 Patient Own Medication (Patient's Own Med) 1 ea DAILY ORAL 06/12/19 09:00 07/12/19 08:59 06/13/19 09:24 Sanchez Kwong MD Jun 14, 2019 09:03
[2019-06-14] MEDS: Doxycycline Monohydrate 100mg ORAL SCH (09:33)
[2019-06-14] MEDS: Docusate 100mg cap ORAL SCH (09:33)
[2019-06-14] MEDS: Allopurinol 100mg Tab ORAL SCH (09:33)
[2019-06-14] MEDS: Solu-MEDROL 40mg Inj IVP SCH (09:34)
[2019-06-14 12:00] VITALS: BP 138/62
--- NOTE | 2019-06-14 12:04 | NUR ---
DISCHARGE PLANNING REFERRED TO PROGRESSIVE 1999 T: [phone] F: [phone]
--- NOTE | 2019-06-14 13:50 | NUR ---
NURSE NOTES: Patient was discharged to home via private vehicle accompanied by family member. ID, heart monitor, and IV was removed. No s/s of infection on the removal site. Skin intact. Discharge instructions were given. Belongings were accounted and given to patient.
--- NOTE | 2019-06-14 22:45 | Progress Note ---
DATE: 06/14/2019 CARDIOLOGY PROGRESS NOTE SUBJECTIVE: The patient is status post thoracentesis. She feels less short of breath. OBJECTIVE: VITAL SIGNS: Blood pressure 108/49, pulse 87, respirations 17. LUNGS: Breath sounds are better, but still diminished. There is no Kussmaul sound. CARDIAC: Regular rhythm and rate. Normal S1, S2 with no rub. EXTREMITIES: With trace edema. LABORATORY DATA: Reviewed. IMPRESSION: 1. History of breast cancer. 2. Recurring pleural effusion. 3. Pericardial effusion with no clinical echocardiographic evidence of tamponade at this time. 4. COPD exacerbation. 5. Paroxysmal bronchospasm. 6. Acute on chronic diastolic congestive heart failure. 7. Chronic kidney disease, stage 4 to 5, possibly contributing to pericardial disease. PLAN: 1. Off steroids. 2. Completing antimicrobials. 3. Bronchodilators per hearing stenographer. 4. Maintenance dose diuretic. 5. Follow up echocardiogram as an outpatient. 6. Consideration for pericardiocentesis should increase in pericardial effusion be noted. 7. Close monitoring of renal parameters with consideration for hemodialysis as well. Barrington Marsh M.D. DR: ANA JOB#: [id number] CC:
--- NOTE | 2019-06-15 09:04 | Discharge Summary ---
Discharge Summary Discharge Summary _ DATE OF ADMISSION: 06/10/2019 DATE OF DISCHARGE: 06/14/2019 DISCHARGED BY: Dr. Kwong REASON FOR ADMISSION: 68 years old female with past medical history of diabetes mellitus, hypertension , asthma, chronic kidney disease, breast cancer, status post right mastectomy, history of pericardial effusion, presented to emergency department with worsening dyspnea for 3 days. No cough or sputum production. No fever or chills. Patient denied chest pain. Patient had a recent hospitalization , where it was found that she had a pericardial effusion and pleural effusion, which was managed with diuresis. Upon evaluation vital signs were stable. Laboratory work-up revealed no leukocytosis, hemoglobin 10.6 ,hematocrit 31.3 , platelet count 136. Potassium 5.2 . BUN 54, creatinine 3.3. Glucose 118. Stable LFT and lipase. Troponin negative , pro BNP 1565 .EKG revealed sinus rhythm, no acute ischemic changes. Chest x-ray demonstrated severe cardiomegaly. In emergency department patient received Lasix, bronchodilator therapy, loading dose of Solumedrol and admitted for further management. CONSULTANTS: air tube releaser Dr. Marsh internal medicine Dr. Torres [facility] COURSE: Patient admitted to monitored floor. Patient started on the IV steroids with gradual tapering and empiric antibiotics. Nebulizing treatment with bronchodilator therapy provided [id number]. Supplemental oxygen titrated to keep pulse oximetry above 92%. Patient also started on IV diuretic/Lasix with close monitoring of volumes and cardiorenal parameters. Venous duplex bilateral lower extremity revealed no evidence of acute DVT. VQ scan revealed low probability of pulmonary emboli. 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 demonstrated preserved ejection fraction 55 to 60% with no evidence of wall motion abnormality. Medium sized pericardial effusion. No echocardiographic evidence of pericardial tamponade at this time. Moderate pleural effusion. Right ventricular systolic pressure of 44 consistent with mild pulmonary hypertension. Patient subsequently undergone ultrasound-guided thoracentesis for left pleural effusion which yielded 130 cc of fluid. Post-tap chest x-ray revealed no evidence of pneumothorax. Pleural fluid revealed no evidence of growth. LDH of pleural fluid 130. Patient completed antimicrobial. Steroids tapered and stopped. Patient started on maintenance dose of diuretic. Volumes, renal parameters and electrolytes were closely monitored and corrected as needed. Creatinine remained at baseline. Blood pressure was managed with calcium channel gibson and LIZ inhibitor. Statin continued. DVT and GI prophylaxis provided. Blood sugar was managed with sliding scale of insulin as needed. Hemoglobin and hematocrit were closely monitored with goal to keep hemoglobin above 7. Hemoglobin and hematocrit remained at he baseline , and prior to discharge hemoglobin 9.6 , hematocrit 29.1. Bowel regimen instituted. Patient clinically stabilized. Pulse oximetry will stable on room air. No signs of respiratory distress Patient was stable for discharge home with outpatient follow-up with a primary care provider within 1 week. FINAL DIAGNOSES: COPD/asthma exacerbation Acute on chronic diastolic congestive heart failure Recurrent pleural effusion , status post thoracentesis Pericardial effusion/no clinical or echocardiographic evidence of tamponade at this time Severe cardiomegaly /on x-ray Chronic kidney disease stage 4 to 5/ possibly contributing to pericardial disease Diabetes mellitus Hypertension Breast cancer, status post right mastectomy Anemia DISCHARGE MEDICATIONS: See Medication Reconciliation list. DISCHARGE INSTRUCTIONS: Patient was discharged home. Outpatient follow-up with primary care provider in 1week and repeat echo to check for pericardial effusion I have been assigned to dictate discharge summary for this account. I was not involved in the patient's management. Ce Jorge NP Jun 15, 2019 09:04
== END 2019-06-14 14:00 | disposition home or self-care (01) | DRG 190 ==
LOC: EMR 18:57 → 2E 19:15 → EDBEDREQ 20:24
PROC: 0W9B3ZZ Drainage of Left Pleural Cavity, Percutaneous Approach (ICD-10-PCS; principal; 2019-06-13)
DX: J44.1 Chronic obstructive pulmonary disease with (acute) exacerbation (principal); I50.33 Acute on chronic diastolic (congestive) heart failure; I13.0 Hypertensive heart and chronic kidney disease with heart failure and stage 1 through stage 4 chronic kidney disease, or unspecified chronic kidney disease; J90 Pleural effusion, not elsewhere classified; N18.5 Chronic kidney disease, stage 5; I31.3 Pericardial effusion (noninflammatory); Z88.0 Allergy status to penicillin; E11.22 Type 2 diabetes mellitus with diabetic chronic kidney disease; Z85.3 Personal history of malignant neoplasm of breast; Z90.11 Acquired absence of right breast and nipple; D64.9 Anemia, unspecified; I27.20 Pulmonary hypertension, unspecified
CPT/HCPCS: 36415; 71045; 76942; 78579; 78580; 80048; 80053; 82962; 83690; 83735; 83880; 84484; 85007; 85025; 85610; 85730; 87070; 87205; 88104; 93005; 93306; 93970; 94640; 94664; 96365; 96367; 96375; 99285; A9503; J1815; J7620

== ENCOUNTER 2019-06-19 13:42 | Inpatient (IN) | payer MEDICARE, OTHER ==
[~2019-06-19] VITALS: Ht 157.5 cm; Wt 76.7 kg
[~2019-06-19 13:42] MED LIST changes: +ALLOPURINOL100 M1 ORAL; +PROTONIX20 MG ORAL
[2019-06-19 13:50] VITALS: BP 137/62
--- NOTE | 2019-06-19 13:59 | NUR ---
ED Nurse Note: Patient arrive to ED by car from home complaining of shortness of breath that started this morning. She states that she had fluid removed from her lungs last Thursday and that she felt much better afterward. She does not know how much was removed. She denies chest pain, n/v. Family at bedside. VSS.
--- NOTE | 2019-06-19 14:03 | Emergency Room Report ---
History of Present Illness General Chief Complaint: Dyspnea/Respdistress Source: Family Member Present Illness HPI Patient is a 68-year-old female presents after increased difficulty with breathing. Patient had gradual onset of symptoms. She had recently been hospitalized for pleural effusion and pericardial effusion. She did prior history of renal disease. Patient had not been vomiting. She had persistent shortness of breath. She denies any fever. She denies any cough. Prior history of pleural effusion which had recent thoracentesis. She reports making small amounts of urine. She is not currently on dialysis. Allergies: Coded Allergies: PENICILLINS (Verified Allergy, Unknown, 02/08/11) Uncoded Allergies: TAPE (Allergy, Unknown, 03/31/17) Patient History Past Medical History: see triage record Now: No Reviewed Nursing Documentation: PMH: Agreed; PSxH: Agreed Nursing Documentation-PMH Hx Cardiac Problems: Yes - CHF, ACS Hx Hypertension: Yes Hx Asthma: Yes Hx COPD: Yes Hx Diabetes: Yes Hx Cancer: Yes Hx Gastrointestinal Problems: Yes Hx Dialysis: No - Kidney disease ("35% function") Hx Neurological Problems: No Review of Systems All Other Systems: negative except mentioned in HPI Physical Exam Vital Signs Date Time Temp Pulse Resp B/P (MAP) Pulse Ox O2 Delivery O2 Flow Rate FiO2 06/19/19 13:43 98.2 90 22 137/62 (87) 95 Room Air Sp02 EP Interpretation: reviewed, normal General Appearance: normal inspection, alert, moderate distress, Chronically Ill Head: atraumatic ENT: normal ENT inspection, hearing grossly normal, normal voice Neck: normal inspection, full range of motion, supple, no bony tend Respiratory: normal inspection, lungs clear, normal breath sounds, no respiratory distress, no retraction, no wheezing Cardiovascular #1: regular rate, rhythm, no edema Gastrointestinal: normal inspection, normal bowel sounds, non tender, soft, no guarding, no hernia Genitourinary: no CVA tenderness Musculoskeletal: normal inspection, back normal, normal range of motion Neurologic: alert, motor strength/tone normal, milieu coordinator III-XII nml as tested, oriented x3, responsive, speech normal, normal inspection Psychiatric: normal inspection, judgement/insight normal, mood/affect normal Medical Decision Making Diagnostic Impression: Primary Impression: Recurrent pleural effusion on left ER Course Patient present for increased shortness of breath. Differential diagnosis include was not limited to pneumonia, pleural effusion, bronchitis among others. Because of complexity of patient's case laboratory tests and imaging studies were ordered. Patient was noted to have some increased difficulty with breathing. She was noted to have recurrence of shortness of breath after recent thoracentesis. Chest x-ray one view interpreted by me showed cardiomegaly with left pleural effusion. patient was given IV Bumex. She was noted to have some diuresis. Patient will be placed in observation. Dr. Sanchez Kwong was contacted for inpatient management. Labs Test 06/19/19 14:45 White Blood Count 14.0 K/UL (4.8-10.8) Red Blood Count 3.37 M/UL (4.20-5.40) Hemoglobin 10.3 G/DL (12.0-16.0) Hematocrit 30.9 % (37.0-47.0) Mean Corpuscular Volume 92 FL (80-99) Mean Corpuscular Hemoglobin 30.4 PG (27.0-31.0) Mean Corpuscular Hemoglobin Concent 33.1 G/DL (32.0-36.0) Red Cell Distribution Width 12.0 % (11.6-14.8) Platelet Count 123 K/UL (150-450) Mean Platelet Volume 7.5 FL (6.5-10.1) Neutrophils (%) (Auto) % (45.0-75.0) Lymphocytes (%) (Auto) % (20.0-45.0) Monocytes (%) (Auto) % (1.0-10.0) Eosinophils (%) (Auto) % (0.0-3.0) Basophils (%) (Auto) % (0.0-2.0) Prothrombin Time 11.4 SEC (9.30-11.50) Prothromb Time International Ratio 1.1 (0.9-1.1) Activated Partial Thromboplast Time 34 SEC (23-33) Sodium Level 137 MMOL/L (136-145) Potassium Level 4.8 MMOL/L (3.5-5.1) Chloride Level 105 MMOL/L (98-107) Carbon Dioxide Level 21 MMOL/L (21-32) Anion Gap 11 mmol/L (5-15) Blood Urea Nitrogen 70 mg/dL (7-18) Creatinine 3.2 MG/DL (0.55-1.30) Estimat Glomerular Filtration Rate 14.5 mL/min (>60) Glucose Level 123 MG/DL (74-106) Calcium Level 8.6 MG/DL (8.5-10.1) Total Bilirubin 0.7 MG/DL (0.2-1.0) Aspartate Amino Transf (AST/SGOT) 21 U/L (15-37) Alanine Aminotransferase (ALT/SGPT) 18 U/L (12-78) Alkaline Phosphatase 72 U/L (46-116) Troponin I 0.000 ng/mL (0.000-0.056) Pro-B-Type Natriuretic Peptide 3123 pg/mL (0-125) Total Protein 6.8 G/DL (6.4-8.2) Albumin 2.7 G/DL (3.4-5.0) Globulin 4.1 g/dL Albumin/Globulin Ratio 0.7 (1.0-2.7) Thyroid Stimulating Hormone (TSH) 1.747 uiU/mL (0.358-3.740) EKG Diagnostic Results Rate: normal - 90 Rhythm: NSR ST Segments: other Last Vital Signs Date Time Temp Pulse Resp B/P (MAP) Pulse Ox O2 Delivery O2 Flow Rate FiO2 06/19/19 13:43 98.2 90 22 137/62 (87) 95 Room Air Status: improved Disposition: PLACE IN OBSERVATION Condition: Stable Leonid Riggs MD Jun 19, 2019 14:03
[2019-06-19] MEDS ORDERED: Bumetanide 2.5mg/10ml Inj IVP ONE (15:15)
[2019-06-19 15:23] LABS: HEMATOCRIT 30.9 % (37.0-47.0); HEMOGLOBIN 10.3 G/DL (12.0-16.0); MEAN CORPUSCULAR VOLUME 92 FL (80-99); PLATELET COUNT 123 K/UL (150-450); RED BLOOD COUNT 3.37 M/UL (4.20-5.40)
[2019-06-19 15:28] LABS: ANION GAP 11 mmol/L (5-15); BLOOD UREA NITROGEN 70 mg/dL (7-18); CALCIUM 8.6 MG/DL (8.5-10.1); CARBON DIOXIDE 21 MMOL/L (21-32); CHLORIDE 105 MMOL/L (98-107); CREATININE 3.2 MG/DL (0.55-1.30); INR 1.1 (0.9-1.1); POTASSIUM 4.8 MMOL/L (3.5-5.1); SODIUM 137 MMOL/L (136-145)
[2019-06-19 15:30] VITALS: BP 138/75
[2019-06-19 15:41] LABS: ALANINE AMINOTRANSFERASE 18 U/L (12-78); ALBUMIN 2.7 G/DL (3.4-5.0); ALBUMIN/GLOBULIN RATIO 0.7 (1.0-2.7); ALKALINE PHOSPHATASE 72 U/L (46-116); ASPARTATE AMINO TRANSFERASE 21 U/L (15-37); BILIRUBIN,TOTAL 0.7 MG/DL (0.2-1.0)
[2019-06-19] MEDS ORDERED: ADVAIR 100-501 EACH INH (15:58)
[2019-06-19] MEDS ORDERED: TRAMADOL HCL50 MG ORAL (15:58)
[2019-06-19] MEDS ORDERED: ZEMPLAR1 MC1 ORAL (15:58)
--- NOTE | 2019-06-19 16:15 | NUR ---
ED Nurse Note: Report given to Min RN on 2E.
--- NOTE | 2019-06-19 16:52 | NUR ---
TRANSFER TO FLOOR: Patient transferred to tele per hospital protocol on the gurney, pt sinus tach on library monitor, pt vss, all belongings sent w/ pt w/ completed list, iv intact and patent, care endorsed to RN Min. swabs collected and sent.
--- NOTE | 2019-06-19 16:52 | NUR ---
NURSE NOTES: Received report from Rigoberto CAZARES. Pt transferred from ED via gurney with RN and wired music operator. C/O SOB with O2 sat 95% on room and headache. Also noted fever with 100.8F. No blood culture or breathing Tx done at ED. O2 2LPM applied and Dr. Kwong paged for admission orders. Awaiting for reply. phototypesetting equipment monitor applied. IV LAC 20G SL patent and asymptomatic. AOX4 and german speaking and family helps for translating. Side railx2 up for safety. Bed lowest position and locked. Call light within easy reach. Will continue to plan of care.
[2019-06-19 17:05] VITALS: BP 167/75
[2019-06-19] MEDS ORDERED: BREO ELLIPTA 11 EACH IH (17:25)
[2019-06-19] MEDS ORDERED: traMADol 50mg tab ORAL PRN (18:15)
[2019-06-19] MEDS ORDERED: Albuterol 90mcg Inhaler 8gm INH SCH (19:00)
--- NOTE | 2019-06-19 19:15 | NUR ---
NURSE NOTES: Got report from Min RN. Pt in stable condition. Denies any pain. No s/s of distress or discomfort noted. Pt resting in bed comfortably. Bed in low and locked position, call light within reach, bedside table within reach. Continue to monitor.
[2019-06-19] MEDS ORDERED: Albuterol/Ipratropium 3ml neb HHN PRN (19:45)
[2019-06-19 20:00] VITALS: BP 105/57
[2019-06-19] MEDS: Heparin 5000 units/ml inj SUBQ SCH (20:37)
[2019-06-19] MEDS: Albuterol/Ipratropium 3ml neb HHN SCH (23:32)
[2019-06-20] VITALS: BP 113/60
[2019-06-20] MEDS: Albuterol/Ipratropium 3ml neb HHN SCH ×7 (03:57→23:48)
[2019-06-20 04:00] VITALS: BP_SYST 131; BP_SYST 138; BP_DIAS 67; BP_DIAS 77
[2019-06-20 05:21] LABS: HEMATOCRIT 28.2 % (37.0-47.0); HEMOGLOBIN 9.3 G/DL (12.0-16.0); MEAN CORPUSCULAR VOLUME 91 FL (80-99); PLATELET COUNT 97 K/UL (150-450); RED BLOOD COUNT 3.09 M/UL (4.20-5.40); RED CELL DISTRIBUTION WIDTH 12.4 % (11.6-14.8); WHITE BLOOD COUNT 8.9 K/UL (4.8-10.8)
[2019-06-20 05:28] LABS: ANION GAP 9 mmol/L (5-15); BLOOD UREA NITROGEN 74 mg/dL (7-18); CALCIUM 8.6 MG/DL (8.5-10.1); CARBON DIOXIDE 23 MMOL/L (21-32); CHLORIDE 105 MMOL/L (98-107); CREATININE 3.5 MG/DL (0.55-1.30); POTASSIUM 4.3 MMOL/L (3.5-5.1); SODIUM 137 MMOL/L (136-145)
--- NOTE | 2019-06-20 07:00 | NUR ---
HAND-OFF: Report given to Min RN.
--- NOTE | 2019-06-20 07:05 | NUR ---
NURSE NOTES: Received report from Mona CAZARES. Pt alert and oriented. No c/o pain. Denied SOB. IV site LAC 20G SL patent and asymptomatic. Bed in lowest position and locked. Side railsx2 up for safety. Will continue to plan of care. Addendum: 06/20/19 at 0732 by Dipak Bunch RN Received report from Neville CAZARES
[2019-06-20 08:00] VITALS: BP 133/57
[2019-06-20] MEDS: Lisinopril 20mg tab ORAL SCH (08:31)
[2019-06-20] MEDS: Allopurinol 100mg Tab ORAL SCH (08:31)
[2019-06-20] MEDS: Heparin 5000 units/ml inj SUBQ SCH ×2 (08:32→21:00)
[2019-06-20] MEDS: Breo Ellipta 100/25mcg - 14 dose INH SCH (08:51)
[2019-06-20] MEDS ORDERED: Paricalcitol 1mcg cap ORAL SCH (09:00)
--- NOTE | 2019-06-20 10:25 | Diagnostic Imaging Report ---
Indication: Shortness of breath Technique: One view of the chest Comparison: 06/13/2019 Findings: The heart is enlarged. There is some opacity in the left lateral lung base, could indicate pleural fluid. This appears slightly increased from the prior study. There is mild chronic appearing central bronchial wall thickening. The remainder of the lungs and pleural spaces are clear. Impression: Cardiomegaly Left lateral basilar opacity, slightly increased since previous study of 06/13/2019, could indicate pleural fluid
[2019-06-20 12:00] VITALS: BP 120/50
--- NOTE | 2019-06-20 15:20 | NUR ---
NURSE NOTES: The patient picked up by transporter via gurney with O2 2LPM via N/C to radiology dept for thoracentesis
--- NOTE | 2019-06-20 15:36 | Pre-Procedure Note/Attestation ---
Pre-Procedure Note/Attestation Complete Prior to Procedure Planned Procedure: left Procedure Narrative: thoracentesis Indications for Procedure Pre-Operative Diagnosis: pleural effusion Attestation I attest that I discussed the nature of the procedure; its benefits; risks and complications; and alternatives (and the risks and benefits of such alternatives ), prior to the procedure, with the patient (or the patient's legal sales representative gas service). I attest that, if there was a reasonable possibility of needing a blood transfusion, the patient (or the patient's legal sales representative gas service) was given the [facility] standardized written summary, pursuant to the Dipesh Cornelius Blood Safety Act ([place] Health and Safety Code # 1645, as amended). I attest that I re-evaluated the patient just prior to the surgery and that there has been no change in the patient's H&P, except as documented below: Richmond Astudillo MD Jun 20, 2019 15:36
[2019-06-20 16:00] VITALS: BP 123/60
--- NOTE | 2019-06-20 16:10 | NUR ---
NURSE NOTES: The patient came back from thoracentesis and Marce from radiology reported that 600cc fluid from left lung removed by radiologist
--- NOTE | 2019-06-20 16:39 | Diagnostic Imaging Report ---
Indications: Pleural effusion Technique: Ultrasound used to localize optimal puncture site. Sterile prepping and draping left chest. Local anesthesia with 1% lidocaine. Under real-time ultrasound guidance, puncture pleural space using thoracentesis needle. Stylet removed. Catheter placed to vacuum bottle suction. Total sixth and milliliters of clear yellow fluid aspirated. Patient tolerated procedure well, without immediate complication. Findings: Followup sonography demonstrates near complete resolution of pleural fluid. Impression: Successful ultrasound-guided thoracentesis, yielding 600 milliliters of fluid
--- NOTE | 2019-06-20 17:13 | Diagnostic Imaging Report ---
Indication: Status post thoracentesis Technique: One view of the chest Comparison: 07/01/2019 Findings: Interim decrease in left pleural effusion, post thoracentesis. No pneumothorax. The heart remains enlarged. Small right pleural effusion appears slightly increased from the prior exam. Generalized mild interstitial congestion persists Impression: Decreased left pleural effusion, status post thoracentesis Suggestion of slightly increased right pleural fluid Cardiomegaly Mild interstitial congestion, unchanged
--- NOTE | 2019-06-20 19:23 | NUR ---
NURSE NOTES: RECEIVED PATIENT RESTING IN BED, NO COMPLAINTS OF PAIN AT THIS TIME. FALL PRECAUTIONS IN PLACE: CALL LIGHT AND BEDSIDE TABLE WITHIN REACH, BED IN LOW POSITION AND BED ALARM ON. WILL CONTINUE WITH PLAN OF CARE.
--- NOTE | 2019-06-20 19:30 | History and Physical Report ---
DATE OF ADMISSION: 06/19/2019 REASON FOR ADMISSION: Shortness of breath. HISTORY OF PRESENT ILLNESS: This is a 68-year-old female who was recently discharged from the hospital, presents again with difficulty breathing. Symptoms have been worsening in severity. The patient recently hospitalized with pericardial effusion. The patient does have underlying chronic kidney disease. The patient presents with shortness of breath with some lower extremity edema. The patient has had a recent pericardiocentesis at [facility]. The patient also with noted chronic renal failure, chronic renal function, and yet not has been started on dialysis. The patient's care discussed and reviewed. The patient as mentioned has had recent admission and recent discharge. On prior discharge, the patient had overall similar presentation, was stabilized and discharged to home. PAST MEDICAL HISTORY: Notable for COPD, CHF, pleural effusion status post thoracentesis, pericardial effusion status post pericardiocentesis, cardiomegaly, chronic kidney disease stage 4, diabetes, hypertension, breast cancer status post right mastectomy, and anemia of chronic disease. MEDICATIONS: Reviewed. ALLERGIES: Reviewed. SOCIAL HISTORY: Nonsmoker and nondrinker. The patient is disabled at home with family. REVIEW OF SYSTEMS: All 10 points reviewed and otherwise negative. PHYSICAL EXAMINATION: GENERAL: A well-developed female, overall comfortable at present. VITAL SIGNS: Reviewed. Blood pressure is 105/57, T-max 100.8, pulse 80, respiratory rate 18. Saturation 97% on 2 liters. HEENT: Negative. NECK: Supple. No adenopathy. LUNGS: Moderate breath sounds reduced overall. CARDIAC: S1, S2. Regular rate and rhythm. Somewhat distant. No rubs or gallops. Positive systolic murmur. ABDOMEN: Soft, nontender, and nondistended. EXTREMITIES: No cyanosis, clubbing, or edema. NEUROLOGIC: Grossly nonfocal and alert. LABORATORY DATA: Otherwise reviewed. BUN 74, creatinine 3.5, electrolytes are otherwise negative. Albumin is 2.7. White cell count is 8.9, hemoglobin 9.3, and hematocrit 28.2. IMPRESSION: Pericardial effusion, pleural effusion, congestive heart failure, chronic obstructive pulmonary disease, respiratory insufficiency, and chronic kidney disease. RECOMMENDATIONS: 1. Supportive care. 2. IV Lasix once again. 3. DVT prophylaxis. 4. Resume home medication. 5. Renal evaluation for possible hemodialysis. 6. Possible pericardiocentesis for pericardial effusion. We will call Cardiology again to assist. 7. Care discussed and reviewed and we will follow clinically for changes. Sanchez Kwong M.D. DR: KATHI JOB#: [id number] CC: FERCHO
--- NOTE | 2019-06-20 19:40 | NUR ---
HAND-OFF: Report given to Neisha CAZARES. Pt remains stable.
[2019-06-20 20:00] VITALS: BP 145/52
[2019-06-21] VITALS: BP 135/56
[2019-06-21] MEDS: Albuterol/Ipratropium 3ml neb HHN SCH ×3 (03:36→11:29)
[2019-06-21 04:00] VITALS: BP 114/77
--- NOTE | 2019-06-21 07:10 | NUR ---
NURSE NOTES: Received report from SAGE Driver. Pt sitting at edge of bed, eating breakfast, no complaints of pain, no apparent distress noted, pt is A/O x4, bed in lowest position, call light within reach.
--- NOTE | 2019-06-21 07:17 | NUR ---
HAND-OFF: Report given to David CINTRON RN. PATIENT RESTING IN BED, NO SIGNS OF DISTRESS NOTED.
[2019-06-21 08:00] VITALS: BP 138/61
[2019-06-21] MEDS: Heparin 5000 units/ml inj SUBQ SCH (09:00)
[2019-06-21] MEDS: Allopurinol 100mg Tab ORAL SCH (09:13)
[2019-06-21] MEDS: Lisinopril 20mg tab ORAL SCH (09:13)
[2019-06-21] MEDS: Breo Ellipta 100/25mcg - 14 dose INH SCH (09:32)
--- NOTE | 2019-06-21 09:46 | NUR ---
CASE MANAGEMENT: INITIAL REVIEW 68YR OLD FEMALE FROM HOME CC: DYSPNEA/ RESP DISTRESS PMH: THORACENTESIS; PERICARDIAL EFFUSION SI: RECURRENT PLEURAL EFFUSION 98.3 90 22 137/62 95% ON RA BUN 70 CREAT 3.2 BG 123 H/H 10.3/30.9 IS: PROVENTIL INH BID IV BUMEX X1 \2E TELE : PLAN: LEFT SIDED THORACENTESIS RENAL REVALUATION CASE MANAGEMENT: REVIEW 06/20/19 SI: . RECURRENT PLEURAL EFFUSION . 98.4 103 18 133/57 96% NC 2L BUN 74 CREAT 3.5 BG 111 H/H 9.3/28.2 IS: IV LASIX QD HEPARIN SQ BID NORVASC PO QD BREO-ELLIPTA INH QD ALBUTEROL HHN Q4HR \2E TELE : PLAN: MONITOR RIGHT PLEURAL FLUID RENAL REVALUATION CASE MANAGEMENT: REVIEW 06/21/19 SI: S/P LEFT SIDED THORACENTESIS . RECURRENT PLEURAL EFFUSION . 97.3 74 18 138/61 95% ON RA IS: IV LASIX QD HEPARIN SQ BID NORVASC PO QD BREO-ELLIPTA INH QD ALBUTEROL HHN Q4HR \2E TELE : PLAN: MONITOR RIGHT PLEURAL FLUID RENAL REVALUATION
[2019-06-21 11:36] VITALS: BP 116/60
--- NOTE | 2019-06-21 14:22 | NUR ---
NURSE NOTES: Pt states Dr. Kwong stated she was going home today. No DC order in system. RN asked cecily GALLEGOSay to DC with home medications
--- NOTE | 2019-06-21 15:02 | NUR ---
NURSE NOTES: Pt discharged home with all belongings, accompanied by son, taken home in private vehicle, tele box removed, ID band removed, IV removed intact, pt is ambulatory, all DC papers signed and reviewed by pt and son, pt stable for DC
--- NOTE | 2019-06-21 18:04 | General Progress Note ---
Assessment/Plan Assessment/Plan: IMPRESSION: Pericardial effusion, pleural effusion, congestive heart failure, chronic obstructive pulmonary disease, respiratory insufficiency, and chronic kidney disease. s/p tap PLAN improved dc home will go in lasix needs HD aware and will follow up with renal otherwise same impression, plan, and exam edited and reviewed in detail care discussed with RN Subjective Allergies: Coded Allergies: PENICILLINS (Verified Allergy, Unknown, 02/08/11) Uncoded Allergies: TAPE (Allergy, Unknown, 03/31/17) Subjective care noted improved wants to go home Objective Last 24 Hour Vital Signs Date Time Temp Pulse Resp B/P (MAP) Pulse Ox O2 Delivery O2 Flow Rate FiO2 06/21/19 11:36 98.4 75 20 116/60 (78) 95 06/21/19 11:30 81 20 97 Nasal Cannula 2.0 28 72 20 94 06/21/19 11:25 76 06/21/19 09:13 138/61 06/21/19 09:13 74 138/61 06/21/19 09:00 Room Air Room Air Room Air 06/21/19 08:00 97.3 74 18 138/61 (86) 95 06/21/19 07:55 83 20 97 Nasal Cannula 2.0 28 61 20 95 06/21/19 07:55 95 Room Air 21 06/21/19 07:45 71 06/21/19 04:00 76 06/21/19 04:00 2.0 06/21/19 04:00 97.7 85 18 114/77 (89) 94 06/21/19 03:46 80 20 98 Nasal Cannula 2.0 28 06/21/19 03:36 79 20 93 Nasal Cannula 2.0 28 06/21/19 00:00 82 06/21/19 00:00 97.4 81 18 135/56 (82) 96 06/20/19 23:58 84 20 99 Nasal Cannula 2.0 28 06/20/19 23:48 85 22 95 Nasal Cannula 2.0 28 06/20/19 21:00 Nasal Cannula 2.0 06/20/19 20:13 81 20 99 Nasal Cannula 2.0 28 06/20/19 20:03 81 20 94 Nasal Cannula 2.0 28 06/20/19 20:03 94 Nasal Cannula 2.0 28 06/20/19 20:03 81 20 94 Nasal Cannula 2.0 28 06/20/19 20:00 2.0 06/20/19 20:00 81 06/20/19 20:00 99.1 76 18 145/52 (83) 95 Intake and Output 06/20/19 06/21/19 19:00 07:00 Intake Total 360 ml 120 ml Balance 360 ml 120 ml Intake Oral 360 ml 120 ml # Voids 3 2 # Bowel Movements 2 Height (Feet): 5 Height (Inches): 2.00 Weight (Pounds): 169 Objective WDWN NAD reduced breath sounds bilaterally without rhonchi or wheeze [id number] without MRG, distant NABS nontender no HSM no CC some edema nonfocal Sanchez Kwong MD Jun 21, 2019 18:04
--- NOTE | 2019-06-22 09:46 | Discharge Summary ---
Discharge Summary Discharge Summary _ DATE OF ADMISSION: 06/19/2019 DATE OF DISCHARGE: 06/21/2019 DISCHARGED BY: Dr. Kwong REASON FOR ADMISSION: 68 years old female with past medical history of COPD, CHF, pleural effusion , status post thoracentesis, pericardial effusion , status post pericardiocentesis , cardiomegaly, chronic kidney disease stage IV, diabetes mellitus, hypertension , breast cancer, status post right mastectomy, anemia of chronic disease, was recently discharged from the hospital , but presented this time with difficulty breathing, shortness of breath and some lower extremity edema. Patient reported recent pericardiocentesis at [facility]. Patient with chronic kidney disease, stage 4, but had not been started on dialysis yet. Upon evaluation laboratory work-up revealed leukocytosis WBC 14, hemoglobin 10.3 , hematocrit 30.9, platelet count 123. Stable electrolytes. BUN 70, creatinine 3.2. Glucose 123. Troponin negative. pro BNP 3123. Albumin 2.7. EKG revealed sinus rhythm, no acute ischemic changes. Chest x-ray demonstrated cardiomegaly. Left lateral basilar opacity , slightly increased from 06/13/2018 , possibly indicative of pleural fluid. Patient subsequently admitted to telemetry floor for further management. HOSPITAL COURSE: Patient admitted to telemetry floor. Patient received 1 dose of diuretic. Home medication resumed. DVT prophylaxis provided. Supplemental oxygen provided and titrated to keep pulse oximetry above 92%. Pulmonary toilet provided as needed. Patient subsequently undergone on 06/20 ultrasound-guided thoracentesis of left pleural effusion, which yielded 600 mL of the pleural fluid. Follow-up chest x-ray revealed decreased left pleural effusion , cardiomegaly, mild interstitial congestion. No radiographic evidence of complication. Leukocytosis resolved. Creatinine from 3.2 up to 3.5. Patient will need dialysis. Patient was informed and aware of the need to follow up as outpatient with cost clerk . Blood pressure was managed with multiple antihypertensive medications and remained stable. Supportive care provided. Patient clinically stabilized and was ready for discharge home. FINAL DIAGNOSES: Left pleural effusion , status post thoracentesis Pericardial effusion with recent history of pericardiocentesis Congestive heart failure COPD Chronic kidney disease DISCHARGE MEDICATIONS: See Medication Reconciliation list. DISCHARGE INSTRUCTIONS: Patient was discharged home. Follow-up with primary care provider in 1 week. I have been assigned to dictate discharge summary for this account. I was not involved in the patient's management. Ce Jorge NP Jun 22, 2019 09:45
--- NOTE | 2019-06-23 19:44 | Cardiology Report ---
APPROVED REPORT EKG Measurement Heart [id number] Normal sinus rhythm Low voltage QRS Borderline ECG
== END 2019-06-21 15:11 | disposition home or self-care (01) | DRG 292 ==
LOC: EMR 14:13 → 2E 15:46 → EDBEDREQ 15:50
PROC: 0W993ZZ Drainage of Right Pleural Cavity, Percutaneous Approach (ICD-10-PCS; principal; 2019-06-19)
DX: I13.0 Hypertensive heart and chronic kidney disease with heart failure and stage 1 through stage 4 chronic kidney disease, or unspecified chronic kidney disease (principal); I31.3 Pericardial effusion (noninflammatory); N18.4 Chronic kidney disease, stage 4 (severe); N18.9 Chronic kidney disease, unspecified; I50.9 Heart failure, unspecified; D63.8 Anemia in other chronic diseases classified elsewhere; Z85.3 Personal history of malignant neoplasm of breast; Z90.11 Acquired absence of right breast and nipple; J44.9 Chronic obstructive pulmonary disease, unspecified
CPT/HCPCS: 36415; 71045; 76942; 80048; 80053; 83880; 84443; 84484; 85007; 85025; 85610; 85730; 87081; 93005; 94640; 94664; 96374; 99285; J7620

== ENCOUNTER 2019-06-27 09:53 | Outpatient (CLI) | payer MEDICARE, OTHER ==
[~2019-06-27 09:53] MED LIST changes: +ADVAIR 100-501 EACH INH; +BREO ELLIPTA 11 EACH IH; +TRAMADOL HCL50 MG ORAL
--- NOTE | 2019-06-27 15:33 | Diagnostic Imaging Report ---
Indication: Shortness of breath Technique: 2 views of the chest Comparison: 06/20/2019 Findings: There is increased pleural fluid on the left. Small right-sided pleural effusion is unchanged. Right chest wall surgical clips are again noted. The heart borderline enlarged.. The upper lungs demonstrate mild interstitial prominence which appears similar to the previous exam Impression: Increased and now large left pleural effusion Stable small right pleural effusion Borderline interstitial prominence, may reflect mild interstitial congestion
== END 2019-06-27 11:53 | disposition home or self-care (01) ==
LOC: RAD 09:53
DX: R06.02 Shortness of breath (principal); J90 Pleural effusion, not elsewhere classified
CPT/HCPCS: 71046

== ENCOUNTER 2019-08-29 12:14 | Outpatient (CLI) | payer MEDICARE, OTHER ==
--- NOTE | 2019-08-29 13:01 | Diagnostic Imaging Report ---
Indication: Cough Technique: 2 views of the chest Comparison: 06/27/2019 Findings: Interim placement right jugular tunneled dialysis catheter. Lungs and pleural spaces are clear. Surgical clips are seen in the right axilla and chest wall. Previously demonstrated pleural effusions are no longer evident. There are degenerative changes of the thoracic spine. The heart size is normal. Impression: Findings as noted. No acute process
== END 2019-08-29 14:14 | disposition home or self-care (01) ==
LOC: RAD 12:14
DX: R05 Cough (principal); I31.3 Pericardial effusion (noninflammatory)
CPT/HCPCS: 71046